=== PATIENT | male | born 1945 | race Caucasian/White ===

== ENCOUNTER 2016-08-11 19:03 | Inpatient (IN) ==
[2016-08-11] MEDS ORDERED: 0.9 % Sodium Chloride 1,000 ML IVC ONE (19:09)
--- NOTE | 2016-08-11 19:21 | Emergency Department Note ---
Disposition Clinical Impression: HCAP (healthcare-associated pneumonia) Altered mental status Qualifiers: Altered mental status type: coma Coma depth: Lety coma 9-12 Coma timing: at arrival to emergency department Qualified Code(s): R40.2422 - Abrams coma scale score 9-12, at arrival to emergency department Disposition: Admitted As Inpatient Condition: Serious Referrals: Tristan Stanton [Non-Partnered Physician] - Forms: ED Satisfaction Letter Time of Disposition: 21:06 Altered Mental Status HPI - General Chief Complaint: ED Altered Mental Status Stated Complaint: AMS/Unresponsive Source: EMS Mode of arrival: EMS Limitations: altered mental status Nursing Notes Reviewed: Yes Vital Signs Reviewed: Yes - History of Present Illness HPI Narrative: 71-year-old male arrives via EMS for evaluation of mental status. Details surrounding his presentation are unknown as patient is severely altered and is not responding to questioning. Per EMS patient was known to be well at approximately 12:00 today when he was seen by his home health nurse. Apparently at that time the patient was somewhat altered and combative and asked the nurse to leave. He was found later by EMS to be severely altered and poorly responsive in his bed at home. He was covered in urine and feces and was found to be satting 83% on room air. EMS noted the patient's sound like he was "gurgling". He did not respond to questioning in route and remains altered during my examination. Initial vital signs show moderate tachycardia 132 bpm and the patient was afebrile. Initial O2 saturation was 93% on room air. Patient did not open his eyes on command but will to painful stimuli. On examination of his pupils the right pupil is much larger than the left pupil and was responsive. Patient has some crusting secretions around the mouth and appears dehydrated. Lungs are diminished bilaterally. Heart is tachycardic and regular. His abdomen is soft and nontender. Extremities are nonedematous, warm with pulses intact distally. Labs, EKG, chest x-ray and CT head ordered. MD complaint: altered mental status Onset (ago): unknown - Related Data Home Medications Medication Instructions Recorded Confirmed Cholecalciferol (D-3) [Vitamin D] 1,000 unit PO DAILY #0 05/13/15 08/11/16 Omeprazole [PriLOSEC] 40 mg PO BID 05/13/15 08/11/16 TraMADol [Ultram] 100 mg PO QID 10/05/15 01/03/17 Divalproex (12 HR) [Depakote (12 500 mg PO BID 08/11/16 08/11/16 HR)] Metoprolol [Lopressor] 50 mg PO BID 08/11/16 08/11/16 Simvastatin [Zocor] 40 mg PO HS 08/11/16 08/11/16 Previous Rx's Medication Instructions Recorded Allopurinol [Zyloprim] 100 mg PO DAILY tablet 05/23/15 Allergies Allergy/AdvReac Type Severity Reaction Status Date / Time Penicillins Allergy Mild Hives Verified 03/09/15 09:43 moxifloxacin Allergy Hives Verified 03/09/15 09:43 etodolac AdvReac Nausea Verified 03/09/15 09:43 Limitations: ROS unobtainable due to patients medical condition (Altered mentation) Past Medical History - Past Medical History Medical history: Reports: diabetes, GERD, hyperlipidemia, hypertension, renal disease, other Surgical history: Reports: knee replacement Psychiatric history: Reports: bipolar - Social History Smoking Status: Never smoker Smokeless Tobacco Status: No Alcohol use: Reports: none Drug use: Reports: none Physical Exam - General Limitations: no limitations General appearance: lethargic, obtunded - Head Head exam: atraumatic, normocephalic, normal inspection - Eye Eye exam: Present: other (Unequal pupils. The right pupil appears dilated as the left pupil is myotic) - ENT ENT exam: mucous membranes dry - Chest Chest inspection: Present: normal inspection, symmetric chest wall rise - Respiratory Respiratory exam: Present: normal lung sounds bilaterally - Cardiovascular Cardiovascular exam: Present: normal rhythm, tachycardia, normal heart sounds - Abdominal Exam Abdominal exam: Present: soft, Non-Tender. Absent: tenderness, distention, guarding, rebound, rigidity - Extremities Exam Extremities exam: Absent: pedal edema - Neurological Exam Neurological exam: Present: other (Disoriented and poorly responsive) - Skin Skin exam: Present: warm, dry, intact, normal color Course - Reevaluation(s) Reevaluation #1: Patient does not meet SIRS criteria. The left lower lobe atelectasis was read on chest x-ray does not appear to be clinical source of the patient's altered mentation. CT of the chest abdomen and pelvis ordered. We are unable to obtain adequate peripheral IV access so a central venous catheter will be placed once the patient returns from CT. Time: 21:04 Reevaluation #2: Discussed case with hospitalist. Based on CT results he does want to treat the patient as healthcare associated pneumonia. Cultures obtained. Antibiotics ordered. Patient will be accepted for further evaluation. Time: 22:39 Vital Signs Temperature 98.6 F 08/11/16 19:05 Pulse Rate 130 08/11/16 19:05 Respiratory Rate 20 08/11/16 19:05 Blood Pressure 118/64 08/11/16 19:05 O2 Sat by Pulse Oximetry 93 L 08/11/16 19:05 Temperature 98.6 F 08/11/16 19:05 Pulse Rate 130 08/11/16 19:05 Respiratory Rate 20 08/11/16 19:05 Blood Pressure 118/64 08/11/16 19:05 O2 Sat by Pulse Oximetry 93 L 08/11/16 19:05 Oxygen Delivery Oxygen Delivery Room Air Procedures - Central Line Placement Right Femoral Central Line Inserted*: Yes Central Line Insertion: emergent Procedural Pause: verify patient name and date of , jordy and assess the site, assemble equipment and verify supplies, perform hand hygiene Patient Placed on Monitor/Pulse Ox: Yes During the Procedure: clinician is wearing sterile gloves, cap, mask,& gown during insertion, sterile field and sterile technique are maintained, everyone in room is wearing a mask Central Line Prep: Chlorhexidine scrub Prep the Procedure Site: apply chloraprep to the skin using a back and forth scrubbing motion, apply chloraprep for 30 seconds (upper body), 1-2 min ( femoral sites), allow prep to dry, drape the patient with a full body drape Local Anesthetic: lidocaine 1% Ultrasound Used for Placement: Yes Central Line Lumen Inserted: triple Post Procedure: sutured in place, good blood return, all ports aspirated, flushed, capped, sterile dressing applied, guide wire removed and visualized Patient Tolerated Procedure: well, no complications Complications: none Altered Mental Status - Medical Records Medical records reviewed: Yes I reviewed the patient's medical records. - Lab Data Lab results reviewed: Yes I reviewed the patient's lab results. Result diagrams: 08/11/16 19:53 08/11/16 19:53 Lab Results 08/11/16 08/11/16 08/11/16 Range/Units 19:28 19:53 19:53 WBC 8.1 (4.3-11.1) K/mcL RBC 4.24 (4.19-5.50) M/mcL Hgb 12.5 L (12.9-16.9) g/dL Hct 38.4 (37.5-50.1) % MCV 90.6 (83.0-100.0) fL MCH 29.5 (28.0-33.3) pg MCHC 32.6 (31.6-35.5) g/dL RDW 13.8 (11.5-14.5) % Plt Count 192 (140-400) K/mcL MPV 9.3 L (9.4-12.4) fL Immature Gran % 0.4 (0-4) % Seg Neutrophils % 80.2 % Lymphocytes % 9.9 % Monocytes % 9.1 % Eosinophils % 0.2 % Basophils % 0.2 % Neutrophils # 6.5 (1.6-8.9) K/mcL Lymphocytes # 0.8 (0.6-4.6) K/mcL Monocytes # 0.7 (0.0-1.3) K/mcL Eosinophils # 0.0 (0.0-0.6) K/mcL Basophils # 0.0 (0.0-0.2) K/mcL ABG pH 7.46 H (7.32-7.45) pH Units ABG pCO2 40 (35-45) mmHg ABG pO2 65 L (85-104) mmHg ABG HCO3 28.4 H (21-27) mEQ/L ABG Total CO2 29.6 H (20-26) mEq/L ABG O2 Saturation 94 L (95-98) % ABG Base Excess 4.2 H (-2.0 to 3.0) mEq/L Liter Flow 3 L/MIN Blood Gas Modality NC Inspired O2 32 % Sodium 136 (136-145) mEq/L Potassium 4.2 (3.5-4.5) mEq/L Chloride 103 (98-109) mEq/L Carbon Dioxide 22 (19-29) mEq/L BUN 20 (8-26) mg/dL Creatinine 1.17 (0.72-1.25) mg/dL Est GFR ( Amer) > 60 (> 60) Est GFR (Non-Af Amer) > 60 (> 60) BUN/Creatinine Ratio 17 (6-26) Glucose 166 H (70-99) mg/dL Calculated Osmolality 288 (280-300) Lactic Acid (0.5-2.2) mmol/L Calcium 9.1 (8.6-10.8) mg/dL Total Bilirubin 0.4 (0.2-1.2) mg/dL Direct Bilirubin 0.2 (0.0-0.5) mg/dL Indirect Bilirubin 0.2 (0.0-1.2) mg/dL AST 13 (5-34) Units/L ALT 9 (0-55) Units/L Alkaline Phosphatase 66 (38-126) Units/L Ammonia (18-72) mcmol/L Troponin I (0-0.03) ng/mL Serum Total Protein 8.2 (6.0-8.3) g/dL Albumin 2.9 L (3.5-5.0) g/dL Globulin 5.3 H (2.4-3.5) g/dL Albumin/Globulin Ratio 0.5 L (1.1-2.2) Urine Color (Yellow) Urine Clarity (Clear) Urine pH (5.0-8.0) pH Units Ur Specific [place] (1.010-1.025) Urine Protein (Neg-Trace) mg/dL Urine Glucose (UA) (Normal) mg/dL Urine Ketones (Negative) mg/dL Urine Blood (Negative) Urine Nitrite (Negative) Urine Bilirubin (Negative) Urine Urobilinogen (Normal) mg/dL Ur Leukocyte Esterase (Negative) Urine Microscopic WBC Urine Bacteria (None-Few) per hpf Urine Mucus (Few) Ur Culture Indicated? (NO) Urine Opiates Screen (Glscda=795) ng/mL Ur Barbiturates Screen (Zzqjud=710) ng/mL Ur Phencyclidine Scrn (Cutoff=25) ng/mL Ur Amphetamines Screen (Iviilu=3728) ng/mL U Benzodiazepines Scrn (Idhksr=042) ng/mL Urine Cocaine Screen (Cutoff= 300) ng/mL U Marijuana (THC) Screen (Cutoff = 50) ng/mL Ethyl Alcohol (0-10) mg/dL 08/11/16 08/11/16 08/11/16 Range/Units 19:53 19:53 19:53 WBC (4.3-11.1) K/mcL RBC (4.19-5.50) M/mcL Hgb (12.9-16.9) g/dL Hct (37.5-50.1) % MCV (83.0-100.0) fL MCH (28.0-33.3) pg MCHC (31.6-35.5) g/dL RDW (11.5-14.5) % Plt Count (140-400) K/mcL MPV (9.4-12.4) fL Immature Gran % (0-4) % Seg Neutrophils % % Lymphocytes % % Monocytes % % Eosinophils % % Basophils % % Neutrophils # (1.6-8.9) K/mcL Lymphocytes # (0.6-4.6) K/mcL Monocytes # (0.0-1.3) K/mcL Eosinophils # (0.0-0.6) K/mcL Basophils # (0.0-0.2) K/mcL ABG pH (7.32-7.45) pH Units ABG pCO2 (35-45) mmHg ABG pO2 (85-104) mmHg ABG HCO3 (21-27) mEQ/L ABG Total CO2 (20-26) mEq/L ABG O2 Saturation (95-98) % ABG Base Excess (-2.0 to 3.0) mEq/L Liter Flow L/MIN Blood Gas Modality Inspired O2 % Sodium (136-145) mEq/L Potassium (3.5-4.5) mEq/L Chloride (98-109) mEq/L Carbon Dioxide (19-29) mEq/L BUN (8-26) mg/dL Creatinine (0.72-1.25) mg/dL Est GFR ( Amer) (> 60) Est GFR (Non-Af Amer) (> 60) BUN/Creatinine Ratio (6-26) Glucose (70-99) mg/dL Calculated Osmolality (280-300) Lactic Acid 3.2 H (0.5-2.2) mmol/L Calcium (8.6-10.8) mg/dL Total Bilirubin (0.2-1.2) mg/dL Direct Bilirubin (0.0-0.5) mg/dL Indirect Bilirubin (0.0-1.2) mg/dL AST (5-34) Units/L ALT (0-55) Units/L Alkaline Phosphatase (38-126) Units/L Ammonia 18 (18-72) mcmol/L Troponin I 0.04 H* (0-0.03) ng/mL Serum Total Protein (6.0-8.3) g/dL Albumin (3.5-5.0) g/dL Globulin (2.4-3.5) g/dL Albumin/Globulin Ratio (1.1-2.2) Urine Color (Yellow) Urine Clarity (Clear) Urine pH (5.0-8.0) pH Units Ur Specific [place] (1.010-1.025) Urine Protein (Neg-Trace) mg/dL Urine Glucose (UA) (Normal) mg/dL Urine Ketones (Negative) mg/dL Urine Blood (Negative) Urine Nitrite (Negative) Urine Bilirubin (Negative) Urine Urobilinogen (Normal) mg/dL Ur Leukocyte Esterase (Negative) Urine Microscopic WBC Urine Bacteria (None-Few) per hpf Urine Mucus (Few) Ur Culture Indicated? (NO) Urine Opiates Screen (Kiiynf=129) ng/mL Ur Barbiturates Screen (Qztokd=566) ng/mL Ur Phencyclidine Scrn (Cutoff=25) ng/mL Ur Amphetamines Screen (Hqbqyj=7903) ng/mL U Benzodiazepines Scrn (Vcjpqp=838) ng/mL Urine Cocaine Screen (Cutoff= 300) ng/mL U Marijuana (THC) Screen (Cutoff = 50) ng/mL Ethyl Alcohol (0-10) mg/dL 08/11/16 08/11/16 08/11/16 Range/Units 19:53 20:24 20:24 WBC (4.3-11.1) K/mcL RBC (4.19-5.50) M/mcL Hgb (12.9-16.9) g/dL Hct (37.5-50.1) % MCV (83.0-100.0) fL MCH (28.0-33.3) pg MCHC (31.6-35.5) g/dL RDW (11.5-14.5) % Plt Count (140-400) K/mcL MPV (9.4-12.4) fL Immature Gran % (0-4) % Seg Neutrophils % % Lymphocytes % % Monocytes % % Eosinophils % % Basophils % % Neutrophils # (1.6-8.9) K/mcL Lymphocytes # (0.6-4.6) K/mcL Monocytes # (0.0-1.3) K/mcL Eosinophils # (0.0-0.6) K/mcL Basophils # (0.0-0.2) K/mcL ABG pH (7.32-7.45) pH Units ABG pCO2 (35-45) mmHg ABG pO2 (85-104) mmHg ABG HCO3 (21-27) mEQ/L ABG Total CO2 (20-26) mEq/L ABG O2 Saturation (95-98) % ABG Base Excess (-2.0 to 3.0) mEq/L Liter Flow L/MIN Blood Gas Modality Inspired O2 % Sodium (136-145) mEq/L Potassium (3.5-4.5) mEq/L Chloride (98-109) mEq/L Carbon Dioxide (19-29) mEq/L BUN (8-26) mg/dL Creatinine (0.72-1.25) mg/dL Est GFR ( Amer) (> 60) Est GFR (Non-Af Amer) (> 60) BUN/Creatinine Ratio (6-26) Glucose (70-99) mg/dL Calculated Osmolality (280-300) Lactic Acid (0.5-2.2) mmol/L Calcium (8.6-10.8) mg/dL Total Bilirubin (0.2-1.2) mg/dL Direct Bilirubin (0.0-0.5) mg/dL Indirect Bilirubin (0.0-1.2) mg/dL AST (5-34) Units/L ALT (0-55) Units/L Alkaline Phosphatase (38-126) Units/L Ammonia (18-72) mcmol/L Troponin I (0-0.03) ng/mL Serum Total Protein (6.0-8.3) g/dL Albumin (3.5-5.0) g/dL Globulin (2.4-3.5) g/dL Albumin/Globulin Ratio (1.1-2.2) Urine Color Dark Yellow (Yellow) Urine Clarity Clear (Clear) Urine pH 6.0 (5.0-8.0) pH Units Ur Specific [place] 1.019 (1.010-1.025) Urine Protein Negative (Neg-Trace) mg/dL Urine Glucose (UA) Normal (Normal) mg/dL Urine Ketones Negative (Negative) mg/dL Urine Blood Small H (Negative) Urine Nitrite Negative (Negative) Urine Bilirubin Small H (Negative) Urine Urobilinogen Normal (Normal) mg/dL Ur Leukocyte Esterase Negative (Negative) Urine Microscopic WBC Test Not Performed Urine Bacteria Moderate H (None-Few) per hpf Urine Mucus Few (Few) Ur Culture Indicated? NO (NO) Urine Opiates Screen Negative (Ajwijg=894) ng/mL Ur Barbiturates Screen Negative (Sxzmsc=465) ng/mL Ur Phencyclidine Scrn Negative (Cutoff=25) ng/mL Ur Amphetamines Screen Negative (Lkzxvf=2228) ng/mL U Benzodiazepines Scrn Negative (Ossmcu=663) ng/mL Urine Cocaine Screen Negative (Cutoff= 300) ng/mL U Marijuana (THC) Screen Negative (Cutoff = 50) ng/mL Ethyl Alcohol < 10 (0-10) mg/dL - Radiology Data Radiology results reviewed: Yes I reviewed the patient's radiology results. - EKG Data EKG attestation: Yes I reviewed and interpreted this EKG. EKG shows normal: sinus rhythm Rate: tachycardia Rhythm: NSR Interpretation: no acute changes Critical Care Time Critical Care Time: Yes Total Critical Care Time: 40 Attestation: Critical care performed: Time is exclusive of separately billable procedures. Time includes: direct patient care, patient reassessment, coordination of patient care, interpretation of data (laboratory data, radiology data, and respiratory data), review of patient's medical records, medical consultation and documentation of patient care. Procedures included in critical care time: Procedures excluded from critical care time: right femoral central venous access placement Attestation Statement - Attestation Attestation: I, Wali Dominguez MD, personally performed a history and physical exam of the patient and discussed their management with the resident. I reviewed the resident's note and agree with the documented findings, medical decision making , and plan of care. 71-year-old male presents to the emergency department by EMS for evaluation about mental status. He has a history of similar episodes in the past and has been admitted several times for similar symptoms. Reportedly his home health checked on him about noon today and he was combative and ran them off. Someone found him this evening at home unresponsive. Patient is unresponsive and unable to provide any History or review of systems. On examination patient is a well-developed well-nourished elderly male who is unresponsive. Ears no cyanosis or diaphoresis. Breath sounds are equal bilaterally. Heart regular and tachycardic. Abdomen is soft with normal bowel sounds. Patient does moan and appear to have some discomfort with palpation of the abdomen. Labs reviewed and unremarkable. CT of the head, chest, and abdomen and pelvis shows no acute abnormality. The hospitalist,Dr. Peralta, was consulted and accepted admission of the patient.
[2016-08-11 19:37] LABS: ABG Base Excess 4.2 mEq/L (-2.0 to 3.0); ABG HCO3 28.4 mEQ/L (21-27); ABG Oxygen Saturation 94 % (95-98); ABG PCO2 40 mmHg (35-45); ABG PH 7.46 pH Units (7.32-7.45); ABG PO2 65 mmHg (85-104); ABG TCO2 29.6 mEq/L (20-26); Blood Gas FiO2 32 %; Blood Gas Liter Flow 3 L/MIN
[2016-08-11 20:04] LABS: Basophils % 0.2 %; Eosinophils % 0.2 %; Hematocrit 38.4 % (37.5-50.1); Hemoglobin 12.5 g/dL (12.9-16.9); Immature Granulocytes % 0.4 % (0-4); Lymphocytes # 0.8 K/mcL (0.6-4.6); Lymphocytes % 9.9 %; Mean Corpuscular HGB Conc 32.6 g/dL (31.6-35.5); Mean Corpuscular Hemoglobin 29.5 pg (28.0-33.3); Mean Corpuscular Volume 90.6 fL (83.0-100.0); Mean Platelet Volume 9.3 fL (9.4-12.4); Monocytes # 0.7 K/mcL (0.0-1.3); Monocytes % 9.1 %; Neutrophils # 6.5 K/mcL (1.6-8.9); Platelet Count 192 K/mcL (140-400); Red Blood Count 4.24 M/mcL (4.19-5.50); Red Cell Distribution Width 13.8 % (11.5-14.5); Segmented Neutrophils % 80.2 %
[2016-08-11 20:19] LABS: Alanine Aminotransferase 9 Units/L (0-55); Albumin 2.9 g/dL (3.5-5.0); Albumin/Globulin Ratio 0.5 (1.1-2.2); Alkaline Phosphatase 66 Units/L (38-126); Aspartate Amino Transferase 13 Units/L (5-34); BUN/Creatinine Ratio 17 (6-26); Bilirubin,Direct 0.2 mg/dL (0.0-0.5); Bilirubin,Indirect 0.2 mg/dL (0.0-1.2); Bilirubin,Total 0.4 mg/dL (0.2-1.2); Blood Urea Nitrogen 20 mg/dL (8-26); Calcium 9.1 mg/dL (8.6-10.8); Carbon Dioxide 22 mEq/L (19-29); Chloride 103 mEq/L (98-109); Globulin 5.3 g/dL (2.4-3.5); Glucose 166 mg/dL (70-99); Osmolality,Calculated 288 (280-300); Potassium 4.2 mEq/L (3.5-4.5); Sodium 136 mEq/L (136-145); Total Protein 8.2 g/dL (6.0-8.3); eGFR For African Americans > 60 (> 60); eGFR For Non-African Americans > 60 (> 60)
[2016-08-11 20:47] LABS: Bilirubin,Urine Small (Negative); Clarity,Urine Clear (Clear); Color,Urine Dark Yellow (Yellow); Glucose,Urine (UA) Normal (Normal); Ketones,Urine Negative (Negative); Leukocyte Esterase,Urine Negative (Negative); Nitrite,Urine Negative (Negative); Protein,Urine Negative (Neg-Trace); Specific Gravity,Urine 1.019 (1.010-1.025); Urobilinogen,Urine Normal (Normal)
[2016-08-11 20:51] LABS: Amphetamine Screen,Urine Negative ng/mL (Cutoff=1000); Barbiturate Screen,Urine Negative ng/mL (Cutoff=200); Benzodiazepines Screen,Urine Negative ng/mL (Cutoff=200); Cannabinoid Screen,Urine Negative ng/mL (Cutoff = 50); Cocaine Screen,Urine Negative ng/mL (Cutoff= 300); Opiate Screen,Urine Negative ng/mL (Cutoff=300); Phencyclidine Screen,Urine Negative ng/mL (Cutoff=25)
[2016-08-11 20:55] LABS: Blood,Urine Small (Negative)
[2016-08-11 21:08] LABS: Bacteria,Urine Moderate per hpf (None-Few); Mucus,Urine Few (Few)
[2016-08-11] MEDS ORDERED: Levofloxacin 750 MG/150 ML 750 MG/150 ML BAG IVPB ONE (22:31)
[2016-08-11] MEDS ORDERED: Vancomycin 1,500 MG in D5% in Water 250 ML IVPB ONE (22:33)
[2016-08-11] MEDS ORDERED: 0.9 % Sodium Chloride 1,000 ML IV ONE (22:35)
[2016-08-11] MEDS ORDERED: Acetaminophen 650 MG RECTAL SUPP RC PRN (22:47)
[2016-08-11] MEDS ORDERED: Albuterol 2.5 MG/3 ML NEBULIZER IH PRN (22:47)
[2016-08-11] MEDS ORDERED: Dextrose Gel 15 GM PO PRN ×2 (22:47)
[2016-08-11] MEDS ORDERED: *HR* LORazepam 2 MG/ML VIAL IVP PRN (22:47)
[2016-08-11] MEDS ORDERED: *HR* Morphine 2 MG/ML SYRINGE IVP PRN (22:47)
[2016-08-11] MEDS ORDERED: *HR* Enoxaparin 40 MG/0.4 ML SYRINGE SQ STA (22:47)
[2016-08-11] MEDS ORDERED: Acetaminophen 325 MG TABLET PO PRN (22:47)
[2016-08-11] MEDS ORDERED: *HR* Dextrose 50 % in Water (Syg) 50 ML SYRINGE IVP PRN (22:47)
[2016-08-11] MEDS ORDERED: *HR* Promethazine 25 MG/ML VIAL IVP PRN (22:47)
[2016-08-11] MEDS ORDERED: Naloxone 0.4 MG/ML INJ IVP PRN ×2 (22:47)
[2016-08-11] MEDS ORDERED: D5% in Water 1,000 ML IV PRN (22:47)
[2016-08-11] MEDS ORDERED: 0.9 % Sodium Chloride 1,000 ML IVC SCH (23:00)
[2016-08-11] MEDS ORDERED: Cefepime HCl 2,000 MG in D5% in Water (Mini-Bag+) 100 ML IVPB ONE (23:00)
--- NOTE | 2016-08-11 23:10 | Internal Med History&Physical ---
Date of Encounter: 08/11/16 Time of Encounter: 22:00 Assessment and Plan (1) Toxic metabolic encephalopathy Current visit: Yes Status: Acute . (2) Delirium due to conditions classified elsewhere Current visit: Yes Status: Acute . (3) Acute pansinusitis, unspecified Current visit: Yes Status: Acute . Qualifiers: Recurrence: not specified as recurrent Qualified Code(s): J01.40 - Acute pansinusitis, unspecified (4) Altered mental status Current visit: Yes Status: Acute . Qualifiers: Altered mental status type: coma Coma depth: [place] coma 9-12 Coma timing: at arrival to emergency department Qualified Code(s): R40.2422 - [place] coma scale score 9-12, at arrival to emergency department (5) HCAP (healthcare-associated pneumonia) Current visit: Yes Status: Acute . (6) Bipolar disorder Current visit: Yes Status: Chronic . Qualifiers: Active/Remission status: currently active Current bipolar episode type: depressed Current episode severity: unspecified Qualified Code(s): F31.30 - Bipolar disorder, current episode depressed, mild or moderate severity, unspecified (7) Hyperlipidemia Current visit: Yes Status: Chronic . Qualifiers: Hyperlipidemia type: mixed hyperlipidemia Qualified Code(s): E78.2 - Mixed hyperlipidemia (8) Hypertension Current visit: Yes Status: Chronic . Qualifiers: Hypertension type: essential hypertension Qualified Code(s): I10 - Essential (primary) hypertension (9) Physical deconditioning Current visit: Yes Status: Chronic . (10) Severe protein-calorie malnutrition Current visit: Yes Status: Chronic . (11) Diabetes Current visit: Yes Status: Chronic . 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 (13) Lactic acidemia Current visit: Yes Status: Acute . (14) Elevated troponin I measurement Current visit: Yes Status: Acute . (15) Ischemia due to increased oxygen demand Current visit: Yes Status: Acute . (16) Debility, unspecified Current visit: Yes Status: Chronic . (17) Obesity (BMI 30-39.9) Current visit: Yes Status: Chronic . (18) NMS (neuroleptic malignant syndrome) Current visit: Yes Status: Acute . (19) Serotonin syndrome Current visit: Yes Status: Acute . (20) At risk for adverse drug event Current visit: Yes Status: Chronic . (21) Systemic inflammatory response syndrome (SIRS) Current visit: Yes Status: Acute . (22) Sepsis Current visit: Yes Status: Acute . Qualifiers: Sepsis type: sepsis due to unspecified organism Qualified Code(s): A41.9 - Sepsis, unspecified organism Internal Medicine - H&P: HPI Chief complaint: Unresponsiveness Admitted From: Emergency Dept Plans for Post Hospital Care: Home History of present illness: Mr. Walker is a 71 year old male [facility] patient with history significant for bipolar disorder, depression and anxiety, hypertension, dyslipidemia, GERD, osteoarthritis, osteopenia, reactive airway disease/COPD, gout, obesity, nonsmoker. The patient was visited and interviewed and examined. Patient is grossly encephalopathic. Speech is garbled and indistinguishable. Currently alert but predominantly somnolent and responsive only to noxious stimuli. Grossly observed course fasciculations of tongue, twitching and hyperreflexia of extremities observed. The patient is admitted to [facility] via the emergency department when he presents by EMS services from a long term living arrangement with reports of altered mental status. Patient had similar episodes in the past and had been admitted several times for similar symptoms. On arrival to the emergency department the patient was found to be severely altered and nonverbal. Patient was reported to had been at his baseline status up until noon the day of presentation. He had seen his home health nurse in consultation. During that appointment he was found to be somewhat altered, hyperirritable and combative. Home health nurse left the facility after which the patient became more severely altered and none responsive. The scene as reported by EMS found the patient to be covered in urine and feces. Oxygen saturation was 83% on room air. His upper airway was patent but I do not really sound was heard with his respirations. Did not respond to any direct questioning and is unable to follow commands. Initial vital signs showed moderate tachycardia of 132 bpm. Patient was initially reported as afebrile. On oxygen supplementation saturations increased to 93%. Patient responded only to painful stimuli. Examination again revealed right much larger than the left with appropriate response consistent with patient's known anisocoria. Findings in the ED: Signs noted temperature 98.6 pulse 130 respirations 20 BP 118/64 O2 saturation 93% on room air. WBC 8.1 hemoglobin 4.5 platelets 192,000. Differential normal. MPV 9.3. Arterial blood gas pH 7.46 PCO2 40 PO2 65 bicarbonate 28.4. O2 saturation 94% on 2 L per nasal cannula. Metabolic panel normal except glucose 166 with osmolality 288. Albumin 2.9 with total of 8.2. Globulin 5.3. BUN 20 creatinine 1.17. Hepatic function normal. Ammonia 18. Lactic acid 2.2. Troponin 0.04. Urine drug screen negative. Alcohol negative. Urinalysis found small blood and small bilirubin moderate bacteria. Chest x-ray demonstrated mild right basilar atelectasis versus pneumonia. Left lung clear. No pneumothorax or pleural effusion identified. Atherosclerotic heart medications of aortic arch. Cardiac and mediastinal contours without acute process. No acute osseous abnormality. CT of head without contrast demonstrated no acute intracranial abnormality. Severe pansinusitis noted. No evidence of hemorrhage mass effect or midline shift or fluid collection. No evidence of acute infarct. No evidence of hydrocephalus. Complete opacification of all paranasal sinuses with relative sparing the frontal sinus noted. Mastoid air cells clear. No abnormal visualized skull or soft tissue abnormalities. CT of chest without contrast demonstrated patchy nodularity at the left lung base likely due to post inflammatory versus infectious change. Focal nodular opacity seen in the left lung base 1.1 cm with surrounding tree-in-bud nodularity. Nodular appearance recommends however follow-up noncontrast study. Tiny hypodense nodules seen in the thyroid doubtful significance. Small calcified and Calcified mediastinal nodes. Coronary artery calcification. CT of abdomen and pelvis demonstrated small amount of gas seen within the bladder likely due to Pike catheter. No other acute intra-abdominal abnormalities identified. Spleen mildly enlarged. Gallbladder absent. No garret-hepatic fluid seen. The infiltration of liver noted. Adrenal glands are normal in appearance. No evidence of hydronephrosis. No pancreatic calcification or peripancreatic fluid. No evidence of bowel obstruction. Colonic diverticula seen. No pelvic adenopathy. Atherosclerotic change in the aorta without aneurysm seen. No retroperitoneal adenopathy. Spurring seen in the spine incidentally. Preliminary impression suggests acute toxic metabolic encephalopathy with delirium. She has history of significant polypharmacy puts him at risk for NMS and serotonin syndrome. The latter is favored here. Systemic inflammatory response syndrome criteria are present. Radiographically the patient does disclose pansinusitis as well as right basilar atelectasis versus pneumonia. Sepsis criteria and thus is considered present at admission. The upper respiratory gurgling chest congestion and x-ray findings may suggest aspiration as a prelude to patient's acute hypoxic respiratory failure. Mild troponin elevation suggests demand ischemia likely due to hypoperfusion and diminished oxygenation. Overall the patient presents at high risk for further acute clinical decline and morbidity in this setting given his presenting chief complaint, clinical findings, past history and significant comorbidities. Workup and treatments will proceed comprehensively. Cumulative laboratory and radiographic data base was reviewed, considered and discussed. Pertinent ancillary medical records including ECW and PCI documentation, when available, was reviewed and considered. Given the patient's presenting concerns, past medical history, clinical findings and symptoms, he is admitted at this time will undergo further evaluation and disposition. Orders were written as per the computerized physician order make up clerk system.......................................................................... .................... Consultative opinion and will be sought as clinical circumstances justify. Pain management needs will be addressed. Laboratory and radiographic data base will be updated as appropriate. Studies include: Cultures of blood and urine and sputum, cardiac injury panel, BNP, CPK , myoglobin random urine, metabolic and hematologic panels, magnesium, phosphorus, ionized calcium, thyroid panel, lipid profile, HbgA1c, C-peptide, CRP, sed rate, resp infection panel, respiratory virus panel, coag panel, blood gas, lactic acid, serologies, etc. Precautions: Aspiration, fall, seizure, delirium protocol/surveillance initiated. Telemetry with continuous hemodynamic monitoring and pulse oximetry initiated. Empiric antibody coverage: Intravenous Vancomycin, Levaquin, Cefepime pending culture data. Special studies: CT chest, CT Head, CT abd/pelvis, chest x-ray, telemetry, EKG, MRI of brain. Pulmonary toilet: Incentive spirometry, aerosol bronchodilator, mucolytic, antitussive, supplemental oxygen. Corticosteroid therapy. CPAP/BiPAP supplemental oxygen delivery therapy. Aerosol Mucomyst therapy. Fluid and electrolyte repletion efforts will proceed. Careful attention to fluid balance and renal recovery will be emphasized. Avoidance of nephrotoxic exposure and adverse drug drug interaction in the setting of impaired renal function will be monitored closely. Acute coronary syndrome protocol/surveillance initiated. DVT and PUD prophylaxis initiated: PPI therapy, intermittent pneumatic cuffs. Subcutaneous heparin/lovenox. Early ambulation will be encouraged. Immunization updates recommended. Influenza and pneumococcal vaccinations as part of ongoing preventative healthcare recommendations strongly recommended. Smoking cessation counseling will be addressed when circumstances permit. Patient is a nonsmoker per medical record. Advanced care directive discussion will be addressed when circumstances permit. Patient's available records does not declare any healthcare restrictions at this time. Cardiovascular risk appraisal and cardiovascular risk reduction efforts will be emphasized. Physical and occupational therapy may be counseled to assess patient's functional capacity and progress mobility as circumstances permit. Sliding scale insulin coverage, ADA dietary restraint and schedule an as-needed basis fingerstick glucose assessments were initiated. Nutrition/diabetes education counseling may be considered as circumstances justify. Outpatient medication schedules will be reviewed confirmed and facilitated as appropriate. Reconciliation of home treatments including adjustments, substitutions and reintroduction into the treatment regimen will address necessary maintenance therapies for chronic pre-existing medical conditions. As the patient presents concern for adverse drug-drug interactions( Serotonin syndrome vs NMS) , his regimen will be studied carefully prior to final reconciliation. Plan of care has been reviewed and discussed in detail with the patient's attending staff. Questions addressed. Counselling of patient will await inprovement in mental status. Hospital course is dependent on clinical findings, treatment response and potential consultative interventions. Patient is at increased risk for further acute clinical decline and morbidity due to presenting chief complaints, clinical findings and comorbid conditions setting of evolving multiorgan derangements. Condition is serious. Prognosis is guarded. CODE STATUS is full. Past Med Surg Social Fam HX - Past Medical History Source: old records reviewed Medical history: COPD, diabetes, GERD, hyperlipidemia, hypertension, osteoporosis, renal disease, other Psychiatric history: anxiety, bipolar, depression, other - Past Surgical History Surgical History: knee replacement, other - Social History Smoking Status: Never smoker Smokeless Tobacco Status: No Alcohol use: none Drug use: none Occupational status: disabled Current living situation: Residential Activity Level: Mostly sedentary Recent Out of Country Travel Within the Last 8 Weeks: No Exposure or Possible Exposure to Illness During Travel: No Internal Medicine - H&P: Meds Cholecalciferol (D-3) [Vitamin D] 1,000 unit PO DAILY #0 05/13/15 [History] Omeprazole [PriLOSEC] 40 mg PO BID 05/13/15 [History] TraMADol [Ultram] 100 mg PO QID 05/13/15 [History] Allopurinol [Zyloprim] 100 mg PO DAILY tablet 05/23/15 [Rx] Albuterol Sulfate [Proair Hfa] 1 - 2 puff IH TID PRN 08/11/16 [History] Aspirin [Lo-Dose Aspirin EC] 81 mg PO DAILY 08/11/16 [History] Divalproex (12 HR) [Depakote (12 HR)] 500 mg PO BID 08/11/16 [History] Furosemide [Lasix] 20 mg PO BID 08/11/16 [History] Metoprolol [Lopressor] 50 mg PO BID 08/11/16 [History] Potassium Chloride [K-Tab ER] 20 meq PO BID 08/11/16 [History] RisperiDONE [RisperDAL] 0.25 mg PO HS 08/11/16 [History] Sennosides/Docusate Sodium [Senna-S Tablet] 1 tab PO BID PRN 08/11/16 [History] Simvastatin [Zocor] 40 mg PO HS 08/11/16 [History] Allergies Penicillins Allergy (Mild, Verified 03/09/15 09:43) Hives moxifloxacin Allergy (Verified 03/09/15 09:43) Hives etodolac Adverse Reaction (Verified 03/09/15 09:43) Nausea ROS unobtainable: due to mental status All Systems PM: A 10-system review of systems was performed and is negative for pertinent findings except as documented above in the HPI. Patient presents encephalopathic and is a non-historian of circumstances and events. Details are collected from EMS triage, collective medical records and staff elicited comments. - Constitutional Constitutional: as per HPI - EENT Eyes: as per HPI Ears: as per HPI Nose, mouth and throat: as per HPI - Cardiovascular Cardiovascular ROS IM: as per HPI - Respiratory Respiratory: as per HPI - Gastrointestinal Gastrointestinal: as per HPI - Genitourinary Genitourinary ROS male: as per HPI - Musculoskeletal Musculoskeletal ROS IM: as per HPI - Integumentary Integumentary IM: as per HPI - Neurological Neurological ROS: as per HPI - Psychiatric Psychiatric: as per HPI - Endocrine Endocrine IM: as per HPI - Hematologic/Lymphatic Hematologic/Lymphatic: as per HPI - Allergic/Immunologic Allergic/Immunologic: as per HPI - Constitutional Vitals: Temp Pulse Resp BP Pulse Ox 98.6 F 130 20 118/64 93 L 08/11/16 19:05 08/11/16 19:05 08/11/16 19:05 08/11/16 19:05 08/11/16 19:05 General appearance: Present: A&O X 1, mild distress, morbidly obese. Absent: cooperative, disheveled, answers questions appropriately - Head Head exam: Present: atraumatic, normocephalic - Eye Eye exam: Present: EOMI, PERRL, conjuntiva pink, sclera anicteric Pupils: Present: normal accommodation, PERRL, unequal (Anisocoria) - ENT ENT exam: Present: mucous membranes moist, normal external ear exam, normal oropharynx - Neck Neck exam general surgery: Present: supple, trachea midline. Absent: full ROM, lymphadenopathy, tenderness, nuchal rigidity - Respiratory Respiratory exam: Present: decreased breath sounds, CTAB. Absent: accessory muscle use, rales, rhonchi, wheezes - Cardiovascular Cardiovascular exam: Present: distant heart sounds, RRR, +S1, +S2, tachycardia. Absent: diastolic murmur, gallop, rubs, systolic murmur - GI/Abdominal GI/Abdominal exam: Present: normal bowel sounds, soft, no peritoneal signs. Absent: distended, tenderness - Extremities Exam Extremities exam: Present: full ROM, warm, radial pulses palpable and symetrical. Absent: calf tenderness, cyanotic, pedal edema - Neurological Exam Neurological exam: Present: altered, CN II-XII intact, no focal deficits. Absent: oriented X3, pronater drift, facial droop, speech deficit - Expanded Neurological Exam Neurological exam expanded: Present: ataxia, inattentive, protecting the airway , tremor. Absent: expressive aphasia, receptive aphasia Patient oriented to: Present: person Speech: Present: garbled Ataxia: Present: yes Coma Scale Eye Opening: To Pain Coma Scale Motor Response: Withdraws to Pain Coma Scale Verbal Response: Incomprehensible Coma Scale Total: 8 - Psychiatric Psychiatric exam: Present: agitated, flat affect - Skin Skin exam: Present: dry, intact, warm. Absent: petechiae, rash, urticaria, vesicles Internal Med - H&P Results - Labs CBC & Chem 7: 08/11/16 19:53 08/12/16 04:30 Labs: Short CBC 08/11/16 Range/Units 19:53 WBC 8.1 (4.3-11.1) K/mcL Hgb 12.5 L (12.9-16.9) g/dL Hct 38.4 (37.5-50.1) % Plt Count 192 (140-400) K/mcL Neutrophils # 6.5 (1.6-8.9) K/mcL BMP 08/11/16 19:53 Sodium 136 Potassium 4.2 Chloride 103 Carbon Dioxide 22 BUN 20 Creatinine 1.17 Glucose 166 H Calcium 9.1 Cardiac Enzymes 08/11/16 Range/Units 19:53 Troponin I 0.04 H* (0-0.03) ng/mL Liver Function 08/11/16 Range/Units 19:53 Total Bilirubin 0.4 (0.2-1.2) mg/dL Direct Bilirubin 0.2 (0.0-0.5) mg/dL AST 13 (5-34) Units/L ALT 9 (0-55) Units/L Alkaline Phosphatase 66 (38-126) Units/L Albumin 2.9 L (3.5-5.0) g/dL Urine 08/11/16 Range/Units 20:24 Urine Color Dark Yellow (Yellow) Urine Clarity Clear (Clear) Urine pH 6.0 (5.0-8.0) pH Units Ur Specific [place] 1.019 (1.010-1.025) Urine Protein Negative (Neg-Trace) mg/dL Urine Glucose (UA) Normal (Normal) mg/dL - ABG Interpretation ABG results: 08/11/16 19:28 ABG pH 7.46 H ABG pCO2 40 ABG pO2 65 L ABG HCO3 28.4 H ABG Total CO2 29.6 H ABG O2 Saturation 94 L ABG Base Excess 4.2 H - Impressions ITS Impressions Chest X-Ray 08/11/16 19:09 IMPRESSION: Mild right basilar atelectasis versus pneumonia. D/ / Chanell Sims MD / Chanell Sims MD Interpreting Provider: Chanell Sims MD Head CT 08/11/16 19:09 IMPRESSION: No acute intracranial abnormality. Severe blackburn sinusitis. D/ / Elvin Palacios MD / Elvin Palacios MD Interpreting Provider: Elvin Palacios MD Abdomen/Pelvis CT 08/11/16 20:45 IMPRESSION: Patchy nodularity at the left lung base, likely due to postinflammatory -infectious change. However, given the nodular appearance, recommend follow-up noncontrast chest CT in 3 months time to document resolution Small amount a gas is seen within the bladder, likely due to Pike catheter insertion. Correlate with urinalysis to exclude cystitis. Otherwise no acute intra-abdominal abnormality D/ / Tal Pollock MD / Tal Pollock MD Interpreting Provider: Tal Pollock MD Chest CT 08/11/16 20:46 IMPRESSION: Patchy nodularity at the left lung base, likely due to postinflammatory -infectious change. However, given the nodular appearance, recommend follow-up noncontrast chest CT in 3 months time to document resolution Small amount a gas is seen within the bladder, likely due to Pike catheter insertion. Correlate with urinalysis to exclude cystitis. Otherwise no acute intra-abdominal abnormality D/ / Tal Pollock MD / Tal Pollock MD Interpreting Provider: Tal Pollock MD Vital Signs Temp Pulse Resp BP Pulse Ox 08/11/16 19:05 98.6 F 130 20 118/64 93 L Intake and Output 08/11/16 08/11/16 08/11/16 07:59 15:59 23:59 Intake Total 1000 / 1000 Balance 1000 / 1000 Intake: IV Fluids 1000 / 1000 0.9 % Sodium Chloride 1, 1000 / 1000 000 ML @ 3750 mls/hr IVC .Q16M ONE Rx#:[id number] Other: Weight 104.326 kg Patient Weight 08/11/16 23:59 Weight 104.326 kg Short CBC 08/11/16 Range/Units 19:53 WBC 8.1 (4.3-11.1) K/mcL Hgb 12.5 L (12.9-16.9) g/dL Hct 38.4 (37.5-50.1) % Plt Count 192 (140-400) K/mcL Neutrophils # 6.5 (1.6-8.9) K/mcL BMP 08/11/16 Range/Units 19:53 Sodium 136 (136-145) mEq/L Potassium 4.2 (3.5-4.5) mEq/L Chloride 103 (98-109) mEq/L Carbon Dioxide 22 (19-29) mEq/L BUN 20 (8-26) mg/dL Creatinine 1.17 (0.72-1.25) mg/dL Glucose 166 H (70-99) mg/dL Calcium 9.1 (8.6-10.8) mg/dL Cardiac Enzymes 08/11/16 Range/Units 19:53 Troponin I 0.04 H* (0-0.03) ng/mL Liver Function 08/11/16 Range/Units 19:53 Total Bilirubin 0.4 (0.2-1.2) mg/dL Direct Bilirubin 0.2 (0.0-0.5) mg/dL AST 13 (5-34) Units/L ALT 9 (0-55) Units/L Alkaline Phosphatase 66 (38-126) Units/L Albumin 2.9 L (3.5-5.0) g/dL Urine 08/11/16 Range/Units 20:24 Urine Color Dark Yellow (Yellow) Urine Clarity Clear (Clear) Urine pH 6.0 (5.0-8.0) pH Units Ur Specific [place] 1.019 (1.010-1.025) Urine Protein Negative (Neg-Trace) mg/dL Urine Glucose (UA) Normal (Normal) mg/dL 08/11/16 19:28 ABG pH 7.46 H ABG pCO2 40 ABG pO2 65 L ABG HCO3 28.4 H ABG Total CO2 29.6 H ABG O2 Saturation 94 L ABG Base Excess 4.2 H Abnormal lab results Hgb 12.5 g/dL (12.9-16.9) L 08/11/16 19:53 MPV 9.3 fL (9.4-12.4) L 08/11/16 19:53 ABG pH 7.46 pH Units (7.32-7.45) H 08/11/16 19:28 ABG pO2 65 mmHg (85-104) L 08/11/16 19:28 ABG HCO3 28.4 mEQ/L (21-27) H 08/11/16 19:28 ABG Total CO2 29.6 mEq/L (20-26) H 08/11/16 19:28 ABG O2 Saturation 94 % (95-98) L 08/11/16 19:28 ABG Base Excess 4.2 mEq/L (-2.0 to 3.0) H 08/11/16 19:28 Glucose 166 mg/dL (70-99) H 08/11/16 19:53 Lactic Acid 3.2 mmol/L (0.5-2.2) H 08/11/16 19:53 Troponin I 0.04 ng/mL (0-0.03) H* 08/11/16 19:53 Albumin 2.9 g/dL (3.5-5.0) L 08/11/16 19:53 Globulin 5.3 g/dL (2.4-3.5) H 08/11/16 19:53 Albumin/Globulin Ratio 0.5 (1.1-2.2) L 08/11/16 19:53 Urine Blood Small (Negative) H 08/11/16 20:24 Urine Bilirubin Small (Negative) H 08/11/16 20:24 Urine Bacteria Moderate per hpf (None-Few) H 08/11/16 20:24 Allergies Allergy/AdvReac Type Severity Reaction Status Date / Time Penicillins Allergy Mild Hives Verified 03/09/15 09:43 moxifloxacin Allergy Hives Verified 03/09/15 09:43 etodolac AdvReac Nausea Verified 03/09/15 09:43 Laboratory Last Values WBC 8.1 K/mcL (4.3-11.1) 08/11/16 19:53 RBC 4.24 M/mcL (4.19-5.50) 08/11/16 19:53 Hgb 12.5 g/dL (12.9-16.9) L 08/11/16 19:53 Hct 38.4 % (37.5-50.1) 08/11/16 19:53 MCV 90.6 fL (83.0-100.0) 08/11/16 19:53 MCH 29.5 pg (28.0-33.3) 08/11/16 19:53 MCHC 32.6 g/dL (31.6-35.5) 08/11/16 19:53 RDW 13.8 % (11.5-14.5) 08/11/16 19:53 Plt Count 192 K/mcL (140-400) 08/11/16 19:53 MPV 9.3 fL (9.4-12.4) L 08/11/16 19:53 Immature Gran % 0.4 % (0-4) 08/11/16 19:53 Seg Neutrophils % 80.2 % 08/11/16 19:53 Lymphocytes % 9.9 % 08/11/16 19:53 Monocytes % 9.1 % 08/11/16 19:53 Eosinophils % 0.2 % 08/11/16 19:53 Basophils % 0.2 % 08/11/16 19:53 Neutrophils # 6.5 K/mcL (1.6-8.9) 08/11/16 19:53 Lymphocytes # 0.8 K/mcL (0.6-4.6) 08/11/16 19:53 Monocytes # 0.7 K/mcL (0.0-1.3) 08/11/16 19:53 Eosinophils # 0.0 K/mcL (0.0-0.6) 08/11/16 19:53 Basophils # 0.0 K/mcL (0.0-0.2) 08/11/16 19:53 ABG pH 7.46 pH Units (7.32-7.45) H 08/11/16 19:28 ABG pCO2 40 mmHg (35-45) 08/11/16 19:28 ABG pO2 65 mmHg (85-104) L 08/11/16 19:28 ABG HCO3 28.4 mEQ/L (21-27) H 08/11/16 19:28 ABG Total CO2 29.6 mEq/L (20-26) H 08/11/16 19:28 ABG O2 Saturation 94 % (95-98) L 08/11/16 19:28 ABG Base Excess 4.2 mEq/L (-2.0 to 3.0) H 08/11/16 19:28 Liter Flow 3 L/MIN 08/11/16 19:28 Blood Gas Modality NC 08/11/16 19:28 Inspired O2 32 % 08/11/16 19:28 Sodium 136 mEq/L (136-145) 08/11/16 19:53 Potassium 4.2 mEq/L (3.5-4.5) 08/11/16 19:53 Chloride 103 mEq/L (98-109) 08/11/16 19:53 Carbon Dioxide 22 mEq/L (19-29) 08/11/16 19:53 BUN 20 mg/dL (8-26) 08/11/16 19:53 Creatinine 1.17 mg/dL (0.72-1.25) 08/11/16 19:53 Est GFR ( Amer) > 60 (> 60) 08/11/16 19:53 Est GFR (Non-Af Amer) > 60 (> 60) 08/11/16 19:53 BUN/Creatinine Ratio 17 (6-26) 08/11/16 19:53 Glucose 166 mg/dL (70-99) H 08/11/16 19:53 Calculated Osmolality 288 (280-300) 08/11/16 19:53 Lactic Acid 3.2 mmol/L (0.5-2.2) H 08/11/16 19:53 Calcium 9.1 mg/dL (8.6-10.8) 08/11/16 19:53 Total Bilirubin 0.4 mg/dL (0.2-1.2) 08/11/16 19:53 Direct Bilirubin 0.2 mg/dL (0.0-0.5) 08/11/16 19:53 Indirect Bilirubin 0.2 mg/dL (0.0-1.2) 08/11/16 19:53 AST 13 Units/L (5-34) 08/11/16 19:53 ALT 9 Units/L (0-55) 08/11/16 19:53 Alkaline Phosphatase 66 Units/L (38-126) 08/11/16 19:53 Ammonia 18 mcmol/L (18-72) 08/11/16 19:53 Troponin I 0.04 ng/mL (0-0.03) H* 08/11/16 19:53 Serum Total Protein 8.2 g/dL (6.0-8.3) 08/11/16 19:53 Albumin 2.9 g/dL (3.5-5.0) L 08/11/16 19:53 Globulin 5.3 g/dL (2.4-3.5) H 08/11/16 19:53 Albumin/Globulin Ratio 0.5 (1.1-2.2) L 08/11/16 19:53 Urine Color Dark Yellow (Yellow) 08/11/16 20:24 Urine Clarity Clear (Clear) 08/11/16 20:24 Urine pH 6.0 pH Units (5.0-8.0) 08/11/16 20:24 Ur Specific [place] 1.019 (1.010-1.025) 08/11/16 20:24 Urine Protein Negative mg/dL (Neg-Trace) 08/11/16 20:24 Urine Glucose (UA) Normal mg/dL (Normal) 08/11/16 20:24 Urine Ketones Negative mg/dL (Negative) 08/11/16 20:24 Urine Blood Small (Negative) H 08/11/16 20:24 Urine Nitrite Negative (Negative) 08/11/16 20:24 Urine Bilirubin Small (Negative) H 08/11/16 20:24 Urine Urobilinogen Normal mg/dL (Normal) 08/11/16 20:24 Ur Leukocyte Esterase Negative (Negative) 08/11/16 20:24 Urine Microscopic WBC Test Not Performed 08/11/16 20:24 Urine Bacteria Moderate per hpf (None-Few) H 08/11/16 20:24 Urine Mucus Few (Few) 08/11/16 20:24 Ur Culture Indicated? NO (NO) 08/11/16 20:24 Urine Opiates Screen Negative ng/mL (Zactwz=593) 08/11/16 20:24 Ur Barbiturates Screen Negative ng/mL (Wyxwoc=686) 08/11/16 20:24 Ur Phencyclidine Scrn Negative ng/mL (Cutoff=25) 08/11/16 20:24 Ur Amphetamines Screen Negative ng/mL (Ruwcof=8441) 08/11/16 20:24 U Benzodiazepines Scrn Negative ng/mL (Rgylup=734) 08/11/16 20:24 Urine Cocaine Screen Negative ng/mL (Cutoff= 300) 08/11/16 20:24 U Marijuana (THC) Screen Negative ng/mL (Cutoff = 50) 08/11/16 20:24 Ethyl Alcohol < 10 mg/dL (0-10) 08/11/16 19:53
[2016-08-11] MEDS: Ipratropium/Albuterol Neb 3 ML IH SCH (23:51)
[2016-08-12 00:23] LABS: Hemoglobin A1C 5.5 %
[2016-08-12] MEDS: Insulin LISPRO 300 UNITS/3 ML VIAL SQ SCH ×4 (00:29→17:56)
[2016-08-12 01:44] LABS: Bilirubin,Urine Small (Negative); Blood,Urine Large (Negative); Clarity,Urine Turbid (Clear); Color,Urine Dark Yellow (Yellow); Glucose,Urine (UA) Normal (Normal); Ketones,Urine Trace mg/dL (Negative); Leukocyte Esterase,Urine Small (Negative); Nitrite,Urine Negative (Negative); PH,Urine 6.5 pH Units (5.0-8.0); Protein,Urine 100 mg/dL (Neg-Trace); Specific Gravity,Urine > 1.030 (1.010-1.025)
[2016-08-12 02:12] LABS: Bacteria,Urine Few per hpf (None-Few); RBC,Urine TNTC per hpf (0-3); WBC,Urine 0-3 per hpf (0-3)
[2016-08-12] MEDS: 0.9 % Sodium Chloride 1,000 ML IVC SCH ×3 (04:21→16:16)
[2016-08-12] MEDS: Ipratropium/Albuterol Neb 3 ML IH SCH ×4 (04:28→22:40)
[2016-08-12] MEDS: *HR* Metoprolol 5 MG/5 ML VIAL IVP PRN ×3 (04:44→17:45)
[2016-08-12 04:45] LABS: VBG HCO3 30.2 mEq/L (21-27); VBG PH 7.38 pH Units (7.32-7.42)
[2016-08-12 05:02] LABS: Alanine Aminotransferase 7 Units/L (0-55); Albumin 2.6 g/dL (3.5-5.0); Albumin/Globulin Ratio 0.5 (1.1-2.2); Alkaline Phosphatase 57 Units/L (38-126); Aspartate Amino Transferase 15 Units/L (5-34); BUN/Creatinine Ratio 17 (6-26); Blood Urea Nitrogen 24 mg/dL (8-26); C-Reactive Protein 113 mg/L (Less than 5); Calcium 8.5 mg/dL (8.6-10.8); Carbon Dioxide 24 mEq/L (19-29); Chloride 103 mEq/L (98-109); Chol/HDL Ratio 4.9 (0-4.9); Cholesterol 118 mg/dL (< 200); Creatine Kinase 84 Units/L (30-200); Globulin 4.9 g/dL (2.4-3.5); Glucose 141 mg/dL (70-99); HDL Cholesterol 24 mg/dL (40-59); LDL Cholesterol,Calculated 60 mg/dL (0-99); Lactate Dehydrogenase 151 Units/L (159-327); Magnesium 1.5 mg/dL (1.6-2.6); Osmolality,Calculated 292 (280-300); Phosphorous 2.9 mg/dL (2.3-4.7); Potassium 4.2 mEq/L (3.5-4.5); Sodium 138 mEq/L (136-145); Total Protein 7.5 g/dL (6.0-8.3); Triglycerides 169 mg/dL (< 150); eGFR For African Americans > 60 (> 60); eGFR For Non-African Americans 50 (> 60)
[2016-08-12 05:03] LABS: Bilirubin,Total 0.8 mg/dL (0.2-1.2)
[2016-08-12] MEDS: *HR* Enoxaparin 40 MG/0.4 ML SYRINGE SQ SCH (05:43)
[2016-08-12] MEDS: Pantoprazole 40 MG VIAL IVP SCH (09:05)
[2016-08-12] MEDS: Aspirin Enteric Coated 81 MG Tablet PO SCH (09:14)
[2016-08-12] MEDS: Nystatin SUSP 5 ML UD.LIQ PO SCH ×4 (09:14→21:56)
--- NOTE | 2016-08-12 12:05 | Electrocardiograph Report ---
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
--- NOTE | 2016-08-12 16:07 | Internal Med Progress Note ---
Date of Encounter: 08/12/16 Time of Encounter: 16:05 - Assessment and plan (1) Pneumonia Current Visit: Yes Status: Acute Assessment and plan: Add Levaquin duoneb aerosol treatment every 4 and Mucinex Qualifiers: Pneumonia type: due to unspecified organism Laterality: unspecified laterality Lung location: unspecified part of lung Qualified Code(s): J18.9 - Pneumonia, unspecified organism (2) Constipation Current Visit: Yes Status: Acute Assessment and plan: Add colace Mirlax . Senna 1 tablet DAILY Qualifiers: Constipation type: slow transit constipation Qualified Code(s): K59.01 - Slow transit constipation (3) Acute pansinusitis, unspecified Current Visit: Yes Status: Acute Qualifiers: Recurrence: not specified as recurrent Qualified Code(s): J01.40 - Acute pansinusitis, unspecified (4) Acute respiratory failure with hypoxia Current Visit: Yes Status: Acute Assessment and plan: Secondary to bronchitis and polypharmacy (5) Serotonin syndrome Current Visit: Yes Status: Acute Assessment and plan: Hold all antipsychotic for now (6) Toxic metabolic encephalopathy Current Visit: Yes Status: Acute (7) Abnormal finger-nose test Current Visit: Yes Status: Acute Assessment and plan: With his confusion will check MRI brain rule out CVA very high risk for stroke with taking multiple antipsychotic . Aspirin 325 daily. Neuro Check every 4 hour - Subjective Interval history: Patient is more alert now. He Is complaining of a productive cough with greenish sputum . Complaining of constipation. Patient has coordination of his hand movement. No motor or sensory changes, upper or lower extremities, no visual changes . - Constitutional Vitals: Temp Pulse Resp BP Pulse Ox 98.7 F 116 24 139/70 98 08/12/16 15:31 08/12/16 15:31 08/12/16 15:31 08/12/16 15:31 08/12/16 15:31 General appearance: Present: A&O X 1, mild distress, morbidly obese. Absent: cooperative, disheveled, answers questions appropriately - Head Head exam: Present: atraumatic, normocephalic - Neck Neck exam general surgery: Present: supple, trachea midline. Absent: lymphadenopathy - Respiratory Respiratory exam: Present: decreased breath sounds, prolonged expiratory phase, rales. Absent: rhonchi, wheezes - Cardiovascular Cardiovascular exam: Present: RRR, +S1, +S2. Absent: diastolic murmur, gallop, rubs, systolic murmur - GI/Abdominal GI/Abdominal exam: Present: distended, normal bowel sounds, soft, tenderness ( Supra pubic tenderness), no peritoneal signs - Extremities Exam Extremities exam: Present: warm, radial pulses palpable and symetrical. Absent : calf tenderness, cyanotic, pedal edema - Neurological Exam Neurological exam: Present: CN II-XII intact, strengths equal and symetr throughout (Trvuja-sl-rigf test abnormal bilateral). Absent: pronater drift, facial droop, speech deficit - Skin Skin exam: Present: dry, intact Internal Medicine: Result - Labs CBC & Chem 7: 08/11/16 19:53 08/12/16 04:30 Labs: BMP 08/12/16 04:30 Sodium 138 Potassium 4.2 Chloride 103 Carbon Dioxide 24 BUN 24 Creatinine 1.41 H Glucose 141 H Calcium 8.5 L Cardiac Enzymes 08/12/16 08/12/16 Range/Units 04:30 10:58 Troponin I 0.05 H* 0.03 (0-0.03) ng/mL Liver Function 08/12/16 Range/Units 04:30 Total Bilirubin 0.8 D (0.2-1.2) mg/dL AST 15 (5-34) Units/L ALT 7 (0-55) Units/L Alkaline Phosphatase 57 (38-126) Units/L Albumin 2.6 L (3.5-5.0) g/dL Urine 08/12/16 Range/Units 01:02 Urine Color Dark Yellow (Yellow) Urine Clarity Turbid A (Clear) Urine pH 6.5 (5.0-8.0) pH Units Ur Specific [place] > 1.030 H (1.010-1.025) Urine Protein 100 H (Neg-Trace) mg/dL Urine Glucose (UA) Normal (Normal) mg/dL - ABG Interpretation ABG results: ABG ABG pH 7.46 pH Units (7.32-7.45) H 08/11/16 19:28 ABG pCO2 40 mmHg (35-45) 08/11/16 19:28 ABG pO2 65 mmHg (85-104) L 08/11/16 19:28 ABG O2 Saturation 94 % (95-98) L 08/11/16 19:28 - Impressions Impressions Chest X-Ray 08/11/16 19:09 IMPRESSION: Mild right basilar atelectasis versus pneumonia. D/ / Chanell Sims MD / Chanell Sims MD Interpreting Provider: Chanell Sims MD Head CT 08/11/16 19:09 IMPRESSION: No acute intracranial abnormality. Severe blackburn sinusitis. D/ / Elvin Palacios MD / Elvin Palacios MD Interpreting Provider: Elvin Palacios MD Abdomen/Pelvis CT 08/11/16 20:45 IMPRESSION: Patchy nodularity at the left lung base, likely due to postinflammatory -infectious change. However, given the nodular appearance, recommend follow-up noncontrast chest CT in 3 months time to document resolution Small amount a gas is seen within the bladder, likely due to Pike catheter insertion. Correlate with urinalysis to exclude cystitis. Otherwise no acute intra-abdominal abnormality D/ / Tal Pollock MD / Tal Pollock MD Interpreting Provider: Tal Pollock MD Chest CT 08/11/16 20:46 IMPRESSION: Patchy nodularity at the left lung base, likely due to postinflammatory -infectious change. However, given the nodular appearance, recommend follow-up noncontrast chest CT in 3 months time to document resolution Small amount a gas is seen within the bladder, likely due to Pike catheter insertion. Correlate with urinalysis to exclude cystitis. Otherwise no acute intra-abdominal abnormality D/ / Tal Pollock MD / Tal Pollock MD Interpreting Provider: Tal Pollock MD Consult Discharge Plan - Plan [facility]errals: [facility] [Non-Partnered Physician] - 08/27/16 8:15 am
[2016-08-12] MEDS ORDERED: Sennosides 8.6 MG TABLET PO PRN (16:32)
[2016-08-12] MEDS: Thiamine (B-1) 100 MG TABLET PO SCH (17:51)
[2016-08-12] MEDS: Doxycycline 100 MG in 0.9 % Sodium Chloride Mini Bag 100 ML IVPB SCH (17:51)
[2016-08-12] MEDS ORDERED: Sodium Phosphate 30 MMOL in D5% in Water 100 ML IVPB ONE (18:55)
[2016-08-12] MEDS ORDERED: Thiamine (B-1) 100 MG in D5% in Water 50 ML IVPB STA (19:02)
[2016-08-12] MEDS ORDERED: Calcium Gluconate 1,000 MG in D5% in Water 100 ML IVPB ONE (21:52)
[2016-08-12] MEDS ORDERED: Magnesium Sulfate 1 GM in D5% in Water 100 ML IVPB ONE (21:52)
[2016-08-12] MEDS: GuaiFENesin/Pseudophedrine TABLET PO SCH (21:55)
[2016-08-12] MEDS ORDERED: Metoclopramide 10 MG/2 ML VIAL IVP ONE (22:52)
[2016-08-13] MEDS: Insulin LISPRO 300 UNITS/3 ML VIAL SQ SCH ×4 (00:19→16:23)
[2016-08-13] MEDS: 0.9 % Sodium Chloride 1,000 ML IVC SCH ×2 (00:26→07:54)
[2016-08-13 04:53] LABS: Magnesium 1.6 mg/dL (1.6-2.6)
[2016-08-13 04:56] LABS: Phosphorous 3.2 mg/dL (2.3-4.7)
[2016-08-13] MEDS: Ipratropium/Albuterol Neb 3 ML IH SCH ×4 (05:29→23:27)
[2016-08-13] MEDS: Doxycycline 100 MG in 0.9 % Sodium Chloride Mini Bag 100 ML IVPB SCH ×2 (06:00→16:56)
[2016-08-13] MEDS: *HR* Enoxaparin 40 MG/0.4 ML SYRINGE SQ SCH (06:00)
[2016-08-13] MEDS: Aspirin Enteric Coated 81 MG Tablet PO SCH (07:42)
[2016-08-13] MEDS: Pantoprazole 40 MG VIAL IVP SCH (07:42)
[2016-08-13] MEDS: GuaiFENesin/Pseudophedrine TABLET PO SCH ×2 (07:42→20:47)
[2016-08-13] MEDS: Nystatin SUSP 5 ML UD.LIQ PO SCH ×4 (07:42→20:50)
[2016-08-13] MEDS: *HR* OxyCODONE Immed Rel 5 MG TABLET PO PRN ×3 (08:01→23:14)
--- NOTE | 2016-08-13 10:46 | Internal Med Progress Note ---
Date of Encounter: 08/13/16 Time of Encounter: 09:30 - Assessment and plan (1) Pneumonia Current Visit: Yes Status: Acute Assessment and plan: Continue current antibiotic, aerosol treatment may consider to change to oral antibiotic next a.m. Qualifiers: Pneumonia type: due to unspecified organism Laterality: unspecified laterality Lung location: unspecified part of lung Qualified Code(s): J18.9 - Pneumonia, unspecified organism (2) Constipation Current Visit: Yes Status: Acute Assessment and plan: Adjust Laxatives Qualifiers: Constipation type: slow transit constipation Qualified Code(s): K59.01 - Slow transit constipation (3) Acute pansinusitis, unspecified Current Visit: Yes Status: Acute Qualifiers: Recurrence: not specified as recurrent Qualified Code(s): J01.40 - Acute pansinusitis, unspecified (4) Acute respiratory failure with hypoxia Current Visit: Yes Status: Acute Assessment and plan: Secondary to hypophosphatemia syndrome ,bronchitis and polypharmacy (5) Serotonin syndrome Current Visit: Yes Status: Acute Assessment and plan: Will restart medication and small dose need rehabilitation placement temporarily for monitoring his medication and physical therapy (6) Toxic metabolic encephalopathy Current Visit: Yes Status: Acute (7) Abnormal finger-nose test Current Visit: Yes Status: Acute Assessment and plan: Improving MRI brain no evidence of stroke (8) Benign positional vertigo Current Visit: Yes Status: Acute Assessment and plan: Add Meclizine occupational therapy consult Qualifiers: Laterality: unspecified laterality Qualified Code(s): H81.10 - Benign paroxysmal vertigo, unspecified ear - Time Spent With Patient 25 - 35 minutes - Subjective Interval history: Patient is complaining of trouble with his balance. Feels more dizzy when he moves his head. Shortness of breath is improving now , He is complaining of dry cough . Feels much better compared to yesterday. Complain of constipation - Constitutional Vitals: Temp Pulse Resp BP Pulse Ox 98.3 F 99 22 128/69 97 08/13/16 07:10 08/13/16 07:10 08/13/16 07:10 08/13/16 07:10 08/13/16 08:00 General appearance: Present: A&O X 1, mild distress, morbidly obese. Absent: cooperative, disheveled, answers questions appropriately - Head Head exam: Present: atraumatic, normocephalic - Respiratory Respiratory exam: Present: decreased breath sounds, prolonged expiratory phase. Absent: accessory muscle use, rales, rhonchi, wheezes - Cardiovascular Cardiovascular exam: Present: RRR, +S1, +S2. Absent: diastolic murmur, gallop, rubs, systolic murmur - GI/Abdominal GI/Abdominal exam: Present: normal bowel sounds, soft, tenderness (Suprapubic tenderness), no peritoneal signs. Absent: distended - Extremities Exam Extremities exam: Present: warm, radial pulses palpable and symetrical. Absent : calf tenderness, cyanotic, pedal edema - Neurological Exam Neurological exam: Present: CN II-XII intact, oriented X3, no focal deficits. Absent: pronater drift, facial droop, speech deficit - Skin Skin exam: Present: dry, intact Internal Medicine: Result - Labs CBC & Chem 7: 08/11/16 19:53 08/12/16 04:30 Labs: Cardiac Enzymes 08/12/16 Range/Units 10:58 Troponin I 0.03 (0-0.03) ng/mL - ABG Interpretation ABG results: ABG ABG pH 7.46 pH Units (7.32-7.45) H 08/11/16 19:28 ABG pCO2 40 mmHg (35-45) 08/11/16 19:28 ABG pO2 65 mmHg (85-104) L 08/11/16 19:28 ABG O2 Saturation 94 % (95-98) L 08/11/16 19:28 - Impressions Impressions Brain MRI 08/12/16 15:55 IMPRESSION: 1. No acute intracranial abnormality. 2. Stable diffuse parenchymal volume loss and mild chronic white matter microvascular ischemic changes. 3. Diffuse paranasal sinus disease and bilateral mastoid effusions. D/ / Lopez Del Toro MD / Lopez Del Toro MD Interpreting Provider: Lopez Del Toro MD Consult Discharge Plan - Plan Additional Instructions: Admission need rehabilitation , Will consult physical therapy and occupational therapy,May need monitoring of his medication [facility]errals: [facility] [Non-Partnered Physician] - 08/27/16 8:15 am
[2016-08-13] MEDS ORDERED: Sennosides/Docusate Sodium TABLET PO PRN (11:00)
[2016-08-13] MEDS: Divalproex (12 HR) 500 MG TABLET PO SCH ×2 (12:28→20:47)
[2016-08-13] MEDS: Thiamine (B-1) 100 MG TABLET PO SCH (12:29)
[2016-08-13] MEDS: Furosemide 20 MG TABLET PO SCH ×2 (12:34→20:48)
[2016-08-13] MEDS ORDERED: risperiDONE 0.25 MG TABLET PO SCH (21:00)
[2016-08-13] MEDS ORDERED: Insulin LISPRO 300 UNITS/3 ML VIAL SQ SCH (21:00)
[2016-08-14] MEDS: Ipratropium/Albuterol Neb 3 ML IH SCH (04:38)
[2016-08-14] MEDS: Doxycycline 100 MG in 0.9 % Sodium Chloride Mini Bag 100 ML IVPB SCH (05:30)
[2016-08-14] MEDS: *HR* Enoxaparin 40 MG/0.4 ML SYRINGE SQ SCH (05:31)
[2016-08-14 07:35] VITALS: BP 124/85
[2016-08-14] MEDS: Insulin LISPRO 300 UNITS/3 ML VIAL SQ SCH (08:20)
[2016-08-14] MEDS: Aspirin Enteric Coated 81 MG Tablet PO SCH (08:24)
[2016-08-14] MEDS: GuaiFENesin/Pseudophedrine TABLET PO SCH (08:24)
[2016-08-14] MEDS: Divalproex (12 HR) 500 MG TABLET PO SCH (08:24)
[2016-08-14] MEDS: Nystatin SUSP 5 ML UD.LIQ PO SCH ×2 (08:24→08:30)
[2016-08-14] MEDS: Thiamine (B-1) 100 MG TABLET PO SCH (08:24)
[2016-08-14] MEDS: Furosemide 20 MG TABLET PO SCH (08:25)
[2016-08-14] MEDS: Pantoprazole 40 MG VIAL IVP SCH (08:25)
[2016-08-14] MEDS ORDERED: levoFLOXacin 750 MG TABLET PO ONE (10:08)
--- NOTE | 2016-08-14 10:15 | Discharge Summary ---
Date of Encounter: 08/14/16 Time of Encounter: 10:11 - Discharge Diagnosis (1) Pneumonia Priority: Primary Status: Acute Comments: Acute metabolic encephalopathy likely secondary to hypoxia due to community- acquired pneumonia and Pansinusitis with bilteral mastoid effusions Qualifiers: Pneumonia type: due to unspecified organism Laterality: unspecified laterality Lung location: unspecified part of lung Qualified Code(s): J18.9 - Pneumonia, unspecified organism (2) Acute pansinusitis, unspecified Priority: Primary Status: Acute Qualifiers: Recurrence: not specified as recurrent Qualified Code(s): J01.40 - Acute pansinusitis, unspecified (3) Altered mental status Priority: Primary Status: Acute Qualifiers: Altered mental status type: coma Coma depth: Lety coma 9-12 Coma timing: at arrival to emergency department Qualified Code(s): R40.2422 - Lety coma scale score 9-12, at arrival to emergency department (4) Toxic metabolic encephalopathy Priority: Primary Status: Acute (5) Bipolar disorder Priority: Secondary Status: Chronic Qualifiers: Active/Remission status: currently active Current bipolar episode type: depressed Current episode severity: unspecified Qualified Code(s): F31.30 - Bipolar disorder, current episode depressed, mild or moderate severity, unspecified (6) Hyperlipidemia Priority: Secondary Status: Chronic Qualifiers: Hyperlipidemia type: mixed hyperlipidemia Qualified Code(s): E78.2 - Mixed hyperlipidemia (7) Hypertension Priority: Secondary Status: Chronic Qualifiers: Hypertension type: essential hypertension Qualified Code(s): I10 - Essential (primary) hypertension (8) Seizure Priority: Secondary Status: Acute - Discharge Medications Prescriptions: Levofloxacin [Levaquin] 500 mg PO DAILY #5 tablet Home Medications: Cholecalciferol (D-3) [Vitamin D] 1,000 unit PO DAILY #0 05/13/15 [History] Omeprazole [PriLOSEC] 40 mg PO BID 05/13/15 [History] TraMADol [Ultram] 100 mg PO QID 05/13/15 [History] Allopurinol [Zyloprim] 100 mg PO DAILY tablet 05/23/15 [Rx] Albuterol Sulfate [Proair Hfa] 1 - 2 puff IH TID PRN 08/11/16 [History] Aspirin [Lo-Dose Aspirin EC] 81 mg PO DAILY 08/11/16 [History] Divalproex (12 HR) [Depakote (12 HR)] 500 mg PO BID 08/11/16 [History] Furosemide [Lasix] 20 mg PO BID 08/11/16 [History] Metoprolol [Lopressor] 50 mg PO BID 08/11/16 [History] Potassium Chloride [K-Tab ER] 20 meq PO BID 08/11/16 [History] RisperiDONE [RisperDAL] 0.25 mg PO HS 08/11/16 [History] Sennosides/Docusate Sodium [Senna-S Tablet] 1 tab PO BID PRN 08/11/16 [History] Simvastatin [Zocor] 40 mg PO HS 08/11/16 [History] Levofloxacin [Levaquin] 500 mg PO DAILY #5 tablet 08/14/16 [Rx] Allergies/Adverse Reactions: Allergies Penicillins Allergy (Mild, Verified 03/09/15 09:43) Hives moxifloxacin Allergy (Verified 03/09/15 09:43) Hives etodolac Adverse Reaction (Verified 03/09/15 09:43) Nausea Procedures/tests Complete & Pending: Procedures Performed prior 72 hours Category Date Time Status MR head/brain wo con [MR] Routine MRI 08/12/16 15:55 Completed Date of admission: 08/11/16 23:17 Primary care physician: PCP NO Consults: 08/12/16 09:43 Consult to Mine Safety Director [CONS] Routine Reason for SW Consult: Need ECF 08/12/16 16:34 Consult to Physical Therapy [CONS] Routine Comment: Evaluate, develop and implement POC 08/13/16 09:15 Consult to Invasive Line Access Team [CONS] Routine Reason for Consult: LIMITED ACCESS Line Type: EPIV 08/13/16 10:43 Consult to Occupational Therapy [CONS] Routine Comment: Evaluate, develop and implement POC - Patient Status Disposition: Transfer SNF Condition: Fair Overall status at discharge: patient is progressing back to baseline - Discharge Instructions [facility] With: [facility] [[facility] Physician] - 08/27/16 8:15 am Additional Instructions: Admission need rehabilitation , Will consult physical therapy and occupational therapy,May need monitoring of his medication. Follow with primary care physician within the next 7 days. Continue 5 more days of Levaquin. - Diet and Activity Activity: increase activity as tolerated Diet: low fat, low cholesterol Hospital course: Mr. Walker is a 71 year old male [facility] patient with history significant for seizure disorder, bipolar disorder, depression and anxiety, hypertension, dyslipidemia, GERD, osteoarthritis, osteopenia, reactive airway disease/COPD not oxygen dependent, gout, obesity, nonsmoker. Patient was grossly encephalopathic. Speech was garbled and indistinguishable. Grossly observed course fasciculations of tongue, twitching and hyperreflexia of extremities observed upon admission. The patient is admitted to [facility] via the emergency department when he presented by EMS services from a [facility] living arrangement with reports of altered mental status. Patient had similar episodes in the past and had been admitted several times for similar symptoms. On arrival to the emergency department the patient was found to be severely altered and nonverbal. Patient was reported to had been at his baseline status up until noon the day of presentation. He had seen his home health nurse in consultation. During that appointment he was found to be somewhat altered, hyperirritable and combative. Home health nurse left the facility after which the patient became more severely altered and none responsive. The scene as reported by EMS found the patient to be covered in urine and feces. Oxygen saturation was 83% on room air. His upper airway was patent but I do not really sound was heard with his respirations. Did not respond to any direct questioning and is unable to follow commands. The patient was admitted to the hospital and received a dose of Levaquin and vancomycin at the emergency room as he CT scan showed possible small infiltrates and a CT scan of the chest. The CT scan of the head demonstrated severe pansinusitis which was bilateral. The patient also received doxycycline IV. At the moment he is more awake and able to give a proper history. Apparently he was allergic to moxifloxacin but he received Levaquin without any problem in the emergency room. He is a stable to be discharged to have a rehabilitation facility on 5 more days of Levaquin. - Time Spent with Patient Total time spent providing and/or coordinating discharge services: Greater than 30 minutes - Constitutional Vitals: Temp Pulse Resp BP Pulse Ox 98 F 102 18 124/85 93 L 08/14/16 07:00 08/14/16 07:00 08/14/16 08:47 08/14/16 08:47 08/14/16 07:00 General appearance: Present: A&O X 1, mild distress, morbidly obese. Absent: cooperative, disheveled, answers questions appropriately - Head Head exam: Present: atraumatic, normocephalic - Eye Eye exam: Present: PERRL, conjuntiva pink, sclera anicteric Pupils: Present: PERRL - Neck Neck exam general surgery: Present: supple, trachea midline. Absent: lymphadenopathy - Respiratory Respiratory exam: Present: decreased breath sounds, CTAB. Absent: accessory muscle use, rales, rhonchi, wheezes - Cardiovascular Cardiovascular exam: Present: RRR, +S1, +S2. Absent: diastolic murmur, gallop, rubs, systolic murmur - GI/Abdominal GI/Abdominal exam: Present: normal bowel sounds, soft, no peritoneal signs. Absent: distended, tenderness - Extremities Exam Extremities exam: Present: warm, radial pulses palpable and symetrical. Absent : calf tenderness, cyanotic, pedal edema - Neurological Exam Neurological exam: Present: CN II-XII intact, oriented X3, no focal deficits. Absent: pronater drift, facial droop, speech deficit Additional comments: Somnolent but able to give a proper history. Denies any sinus pain at the moment. - Skin Skin exam: Present: dry, intact
--- NOTE | 2016-08-14 10:26 | Physician Discharge Referral ---
ExtendedCare Referral Info Provider in Charge after Transfer: PCP Institutional Level of Care: Skilled - Diagnosis (1) Pneumonia Status: Acute (2) Acute pansinusitis, unspecified Status: Acute (3) Altered mental status Status: Acute (4) Toxic metabolic encephalopathy Status: Acute (5) Bipolar disorder Status: Chronic (6) Hyperlipidemia Status: Chronic (7) Hypertension Status: Chronic (8) Seizure Status: Acute - Transfer Medications Prescriptions: Levofloxacin [Levaquin] 500 mg PO DAILY #5 tablet Home Medications: Cholecalciferol (D-3) [Vitamin D] 1,000 unit PO DAILY #0 05/13/15 [History] Omeprazole [PriLOSEC] 40 mg PO BID 05/13/15 [History] TraMADol [Ultram] 100 mg PO QID 05/13/15 [History] Allopurinol [Zyloprim] 100 mg PO DAILY tablet 05/23/15 [Rx] Albuterol Sulfate [Proair Hfa] 1 - 2 puff IH TID PRN 08/11/16 [History] Aspirin [Lo-Dose Aspirin EC] 81 mg PO DAILY 08/11/16 [History] Divalproex (12 HR) [Depakote (12 HR)] 500 mg PO BID 08/11/16 [History] Furosemide [Lasix] 20 mg PO BID 08/11/16 [History] Metoprolol [Lopressor] 50 mg PO BID 08/11/16 [History] Potassium Chloride [K-Tab ER] 20 meq PO BID 08/11/16 [History] RisperiDONE [RisperDAL] 0.25 mg PO HS 08/11/16 [History] Sennosides/Docusate Sodium [Senna-S Tablet] 1 tab PO BID PRN 08/11/16 [History] Simvastatin [Zocor] 40 mg PO HS 08/11/16 [History] Levofloxacin [Levaquin] 500 mg PO DAILY #5 tablet 08/14/16 [Rx] Allergies/Adverse Reactions: Allergies Penicillins Allergy (Mild, Verified 03/09/15 09:43) Hives moxifloxacin Allergy (Verified 03/09/15 09:43) Hives etodolac Adverse Reaction (Verified 03/09/15 09:43) Nausea - Respiratory Orders Smoking Cessation: Smoking cessation has been advised. For more information, call the [place] Tobacco Quit Line at 6-125-WORX-NOW. - Advance Directives Code Status: Full Code - Treatments List/Other: Admission need rehabilitation , Will consult physical therapy and occupational therapy,May need monitoring of his medication. Follow with primary care physician within the next 7 days. Continue 5 more days of Levaquin. - Diet Orders No Added Salt (DARLIN) CERTIFICATION: I certify that the transfer of the above named patient to an Extended Care Facility is necessary for the continuing treatment of the diagnosis listed. The above information is true and accurate reflection of patient's current condition. Confidential - Redisclosure prohibited without a patient's written consent.
[2016-08-15 00:12] LABS: Valproate Free 11 ug/mL (7-23); Valproate Total 16 ug/mL (50-125)
[2016-08-15 11:44] LABS: Valproate % Free 69 % (5-18)
== END 2016-08-14 12:18 | DRG 871 ==
LOC: EMEROO 19:03 → 2NNU 23:17 → SUATTDRO 23:17 → 2NNU 08-12 00:07
PROVIDERS: ADMIT Internal Medicine; ATTEND Internal Medicine

== ENCOUNTER 2017-11-02 17:12 | Inpatient (IN) ==
--- NOTE | 2017-11-02 17:31 | Emergency Department Note ---
Disposition Clinical Impression: Aspiration pneumonia Qualifiers: Aspiration pneumonia type: unspecified Laterality: right Lung location: middle lobe of lung Qualified Code(s): J69.0 - Pneumonitis due to inhalation of food and vomit Syncope Qualifiers: Syncope type: unspecified Qualified Code(s): R55 - Syncope and collapse Disposition: Admitted As Inpatient Condition: Good Referrals: NONE,PCP [Non-Partnered Physician] - Forms: ED Satisfaction Letter Time of Disposition: 20:43 Altered Mental Status HPI - General Chief Complaint: ED Altered Mental Status Stated Complaint: AMS Time Seen by Provider: 11/02/17 17:30 Source: patient, EMS Mode of arrival: EMS Limitations: no limitations Nursing Notes Reviewed: Yes Vital Signs Reviewed: Yes - History of Present Illness HPI Narrative: Patient is a 72-year-old male with past medical history of hypertension, hyperlipidemia, COPD, CAD. He presents today via EMS transfer from the [facility] due to concern for being found unresponsive. According to EMS, one of the patient's housemates said that he was unresponsive in his chair, called 911. The patient himself does not remember any details from the event. He denies any symptoms of chest pain, shortness of breath, nausea, vomiting, fevers, diarrhea, numbness, tingling, weakness. He does report some sharp epigastric pain just prior to EMS arriving. Otherwise, denies any other symptoms. Patient vitals were stable upon EMS arrival. Bedside glucose was 108. - Related Data Home Medications Medication Instructions Recorded Confirmed Cholecalciferol (D-3) [Vitamin D] 1,000 unit PO DAILY #0 05/13/15 08/11/16 Omeprazole [PriLOSEC] 40 mg PO BID 05/13/15 08/11/16 TraMADol [Ultram] 100 mg PO QID 05/13/15 08/11/16 Albuterol Sulfate [Proair Hfa] 1 - 2 puff IH TID PRN 08/11/16 08/11/16 Aspirin [Lo-Dose Aspirin EC] 81 mg PO DAILY 08/11/16 08/11/16 Divalproex (12 HR) [Depakote (12 500 mg PO BID 08/11/16 08/11/16 HR)] Furosemide [Lasix] 20 mg PO BID 08/11/16 08/11/16 Metoprolol [Lopressor] 50 mg PO BID 08/11/16 08/11/16 Potassium Chloride [K-Tab ER] 20 meq PO BID 08/11/16 08/11/16 Sennosides/Docusate Sodium 1 tab PO BID PRN 08/11/16 08/11/16 [Senna-S Tablet] Simvastatin [Zocor] 40 mg PO HS 08/11/16 08/11/16 risperiDONE [RisperDAL] 0.25 mg PO HS 08/11/16 08/11/16 Previous Rx's Medication Instructions Recorded Allopurinol [Zyloprim] 100 mg PO DAILY tablet 05/23/15 Levofloxacin [Levaquin] 500 mg PO DAILY #5 tablet 08/14/16 Allergies Allergy/AdvReac Type Severity Reaction Status Date / Time Penicillins Allergy Mild Hives Verified 03/09/15 09:43 moxifloxacin Allergy Hives Verified 03/09/15 09:43 etodolac AdvReac Nausea Verified 03/09/15 09:43 All systems ED: reviewed and negative except as stated. Constitutional: Denies: fever Cardiovascular: Denies: chest pain, palpitations Respiratory: Denies: cough, dyspnea, wheezes Gastrointestinal: Reports: abdominal pain. Denies: nausea, vomiting, diarrhea, constipation, hematemesis, melena, hematochezia Genitourinary: Denies: urgency, dysuria Musculoskeletal: Denies: back pain, neck pain Neurological: Denies: headache, weakness, numbness Past Medical History - Past Medical History Attestation: Yes The following information was validated with the patient. 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 Otherwise reactive to light.) - ENT ENT exam: normal exam, normal oropharynx, mucous membranes moist - Neck Neck exam: Present: normal inspection, full ROM, trachea midline - Chest Chest inspection: Present: normal inspection, symmetric chest wall rise - Respiratory Respiratory exam: Present: normal lung sounds bilaterally - Cardiovascular Cardiovascular exam: Present: regular rate, normal rhythm, normal heart sounds - Abdominal Exam Abdominal exam: Present: soft, Non-Tender. Absent: tenderness, distention, guarding, rebound, rigidity - Extremities Exam Extremities exam: Present: normal inspection, full ROM. Absent: tenderness, pedal edema - Neurological Exam Neurological exam: Present: alert, oriented X3, CN II-XII intact. Absent: motor sensory deficit - Psychiatric Psychiatric exam: Present: normal affect, normal mood - Skin Skin exam: Present: warm, dry, intact, normal color Course Course Narrative: Diastolic blood pressure elevated. Otherwise, the rest of the vitals within normal limits. Patient no focal neurologic deficits. He did have a residual right sided mydriasis that he states is chronic. Heart RRR, lungs CTA, abd soft and nontender. Patient is a poor historian, concerned for unexplained possible syncope. We will obtain CT of the head with noncontrast, CT abdomen and pelvis with IV contrast, basic labs, EKG, troponin, electrolytes. 20:40 troponin negative. No elevation white blood cell count. EKG showed no acute ST changes. No major electrolyte abnormality. Head CT negative. CT abdomen and pelvis shows a right middle lobe pneumonia but no other acute abnormalities. Patient has multiple allergies and had to be started on vancomycin and aztreonam for coverage. Vitals remained stable. Patient has been accepted by hospitalist for admission at this time. Chest X-Ray 11/02/17 17:31 IMPRESSION: No acute process. D/ / Justin Ellis MD / Justin Ellis MD Interpreting Provider: Justin Ellis MD Head CT 11/02/17 17:31 IMPRESSION: No acute intracranial abnormality. Chronic pansinusitis. D/ / Austen Woodall MD / Austen Woodall MD Interpreting Provider: Austen Woodall MD Abdomen/Pelvis CT 11/02/17 17:32 IMPRESSION: Right middle lobe pneumonia. Follow-up to resolution recommended. The bladder wall appears mildly thickened which may be artifactual due to nondistention versus cystitis. Clinical correlation recommended. D/ / Chanell Sims MD / Chanell Sims MD Interpreting Provider: Chanell Sims MD Vital Signs Temperature 98.7 F 11/02/17 17:19 Pulse Rate 94 11/02/17 17:19 Respiratory Rate 16 11/02/17 17:19 Blood Pressure 126/111 11/02/17 17:19 O2 Sat by Pulse Oximetry 95 11/02/17 17:19 Temperature 98.7 F 11/02/17 17:19 Pulse Rate 94 11/02/17 17:19 Respiratory Rate 16 11/02/17 17:19 Blood Pressure 126/111 11/02/17 17:19 O2 Sat by Pulse Oximetry 98 11/02/17 17:41 Oxygen Delivery Oxygen Delivery Room Air Altered Mental Status - MDM Narrative Medical decision making narrative: Diastolic blood pressure elevated. Otherwise, the rest of the vitals within normal limits. Patient no focal neurologic deficits. He did have a residual right sided mydriasis that he states is chronic. Heart RRR, lungs CTA, abd soft and nontender. Patient is a poor historian, concerned for unexplained possible syncope. We will obtain CT of the head with noncontrast, CT abdomen and pelvis with IV contrast, basic labs, EKG, troponin, electrolytes. 20:40 troponin negative. No elevation white blood cell count. EKG showed no acute ST changes. No major electrolyte abnormality. Head CT negative. CT abdomen and pelvis shows a right middle lobe pneumonia but no other acute abnormalities. Patient has multiple allergies and had to be started on vancomycin and aztreonam for coverage. Vitals remained stable. Patient has been accepted by hospitalist for admission at this time. - Medical Records Medical records reviewed: Yes I reviewed the patient's medical records. - Lab Data Lab results reviewed: Yes I reviewed the patient's lab results. Result diagrams: 11/02/17 17:56 11/02/17 17:56 Lab Results 03/11/02/17 11/02/17 Range/Units 17:56 17:56 17:56 WBC 6.4 (4.3-11.1) K/mcL RBC 3.89 L (4.19-5.50) M/mcL Hgb 11.4 L (12.9-16.9) g/dL Hct 36.6 L (37.5-50.1) % MCV 94.1 (83.0-100.0) fL MCH 29.3 (28.0-33.3) pg MCHC 31.1 L (31.6-35.5) g/dL RDW 14.6 H (11.5-14.5) % Plt Count 253 (140-400) K/mcL MPV 9.4 (9.4-12.4) fL Immature Gran % 0.6 (0-4) % Seg Neutrophils % 48.7 % Lymphocytes % 32.3 % Monocytes % 14.0 % Eosinophils % 3.9 % Basophils % 0.5 % Neutrophils # 3.1 (1.6-8.9) K/mcL Lymphocytes # 2.1 (0.6-4.6) K/mcL Monocytes # 0.9 (0.0-1.3) K/mcL Eosinophils # 0.3 (0.0-0.6) K/mcL Basophils # 0.0 (0.0-0.2) K/mcL PT 12.5 H (9.4-12.1) Seconds INR 1.2 APTT 31.0 (26.0-36.0) Seconds Sodium 135 L (136-145) mEq/L Potassium 4.3 (3.5-5.1) mEq/L Chloride 99 (98-107) mEq/L Carbon Dioxide 25 (23-29) mEq/L BUN 25 H (8-23) mg/dL Creatinine 1.55 H (0.70-1.30) mg/dL Est GFR ( Amer) 54 L (> 60) Est GFR (Non-Af Amer) 45 L (> 60) BUN/Creatinine Ratio 16 (6-26) Glucose 115 H (70-105) mg/dL Calculated Osmolality 285 (280-300) Calcium 9.2 (8.6-10.3) mg/dL Phosphorus 4.3 (2.7-4.5) mg/dL Magnesium 2.2 (1.6-2.6) mg/dL Total Bilirubin 0.6 (0.3-1.0) mg/dL Direct Bilirubin 0.3 H (0.0-0.2) mg/dL Indirect Bilirubin 0.3 (0.0-1.2) mg/dL AST 15 (13-39) Units/L ALT 8 (7-52) Units/L Alkaline Phosphatase 54 (34-104) Units/L Ammonia (16-53) mcmol/L Troponin I < 0.03 (< 0.04) ng/mL Serum Total Protein 8.3 (6.4-8.9) g/dL Albumin 3.4 L (3.5-5.7) g/dL Globulin 4.9 H (2.4-3.5) g/dL Albumin/Globulin Ratio 0.7 L (1.1-2.2) Urine Color (Yellow) Urine Clarity (Clear) Urine pH (5.0-8.0) pH Units Ur Specific [place] (1.010-1.025) Urine Protein (Neg-Trace) mg/dL Urine Glucose (UA) (Normal) mg/dL Urine Ketones (Negative) mg/dL Urine Blood (Negative) Urine Nitrite (Negative) Urine Bilirubin (Negative) Urine Urobilinogen (Normal) mg/dL Ur Leukocyte Esterase (Negative) Urine Microscopic RBC (0-3) per hpf Urine Microscopic WBC (0-3) per hpf Ur Squamous Epith Cells (None-Few) per lpf Urine Bacteria (None-Few) per hpf Hyaline Casts (None-Few) per lpf Ur Culture Indicated? (NO) 11/02/17 11/02/17 Range/Units 17:56 18:27 WBC (4.3-11.1) K/mcL RBC (4.19-5.50) M/mcL Hgb (12.9-16.9) g/dL Hct (37.5-50.1) % MCV (83.0-100.0) fL MCH (28.0-33.3) pg MCHC (31.6-35.5) g/dL RDW (11.5-14.5) % Plt Count (140-400) K/mcL MPV (9.4-12.4) fL Immature Gran % (0-4) % Seg Neutrophils % % Lymphocytes % % Monocytes % % Eosinophils % % Basophils % % Neutrophils # (1.6-8.9) K/mcL Lymphocytes # (0.6-4.6) K/mcL Monocytes # (0.0-1.3) K/mcL Eosinophils # (0.0-0.6) K/mcL Basophils # (0.0-0.2) K/mcL PT (9.4-12.1) Seconds INR APTT (26.0-36.0) Seconds Sodium (136-145) mEq/L Potassium (3.5-5.1) mEq/L Chloride (98-107) mEq/L Carbon Dioxide (23-29) mEq/L BUN (8-23) mg/dL Creatinine (0.70-1.30) mg/dL Est GFR ( Amer) (> 60) Est GFR (Non-Af Amer) (> 60) BUN/Creatinine Ratio (6-26) Glucose (70-105) mg/dL Calculated Osmolality (280-300) Calcium (8.6-10.3) mg/dL Phosphorus (2.7-4.5) mg/dL Magnesium (1.6-2.6) mg/dL Total Bilirubin (0.3-1.0) mg/dL Direct Bilirubin (0.0-0.2) mg/dL Indirect Bilirubin (0.0-1.2) mg/dL AST (13-39) Units/L ALT (7-52) Units/L Alkaline Phosphatase (34-104) Units/L Ammonia 23 (16-53) mcmol/L Troponin I (< 0.04) ng/mL Serum Total Protein (6.4-8.9) g/dL Albumin (3.5-5.7) g/dL Globulin (2.4-3.5) g/dL Albumin/Globulin Ratio (1.1-2.2) Urine Color Dark Yellow (Yellow) Urine Clarity Clear (Clear) Urine pH 6.0 (5.0-8.0) pH Units Ur Specific [place] 1.025 (1.010-1.025) Urine Protein Trace (Neg-Trace) mg/dL Urine Glucose (UA) Normal (Normal) mg/dL Urine Ketones Trace H (Negative) mg/dL Urine Blood Moderate H (Negative) Urine Nitrite Negative (Negative) Urine Bilirubin Small H (Negative) Urine Urobilinogen Normal (Normal) mg/dL Ur Leukocyte Esterase Small H (Negative) Urine Microscopic RBC 3-5 H (0-3) per hpf Urine Microscopic WBC 3-5 H (0-3) per hpf Ur Squamous Epith Cells Moderate H (None-Few) per lpf Urine Bacteria None Seen (None-Few) per hpf Hyaline Casts Few (None-Few) per lpf Ur Culture Indicated? YES A (NO) - Radiology Data Radiology results reviewed: Yes I reviewed the patient's radiology results. Chest X-Ray 11/02/17 17:31 IMPRESSION: No acute process. D/ / Justin Ellis MD / Justin Ellis MD Interpreting Provider: Justin Ellis MD Head CT 11/02/17 17:31 IMPRESSION: No acute intracranial abnormality. Chronic pansinusitis. D/ / Austen Woodall MD / Austen Woodall MD Interpreting Provider: Austen Woodall MD Abdomen/Pelvis CT 11/02/17 17:32 IMPRESSION: Right middle lobe pneumonia. Follow-up to resolution recommended. The bladder wall appears mildly thickened which may be artifactual due to nondistention versus cystitis. Clinical correlation recommended. D/ / Chanell Sims MD / Chanell Sims MD Interpreting Provider: Chanell Sims MD - EKG Data EKG attestation: Yes I reviewed and interpreted this EKG. EKG results narrative: 11/02/2017 at 17:22. Significant artifact present. Appears to be normal sinus rhythm. Rate 86. HI within normal limits. QTC 363. No acute ST elevation or depression. We will repeat EKG due to significant artifact. EKG #2. 11/02/2017 at 17:52. Normal sinus rhythm. Rate 83. HI 169. QRS 90. QTc 429. Normal axis. No acute ST elevation or depression. TPA Checklist - LKW: 3-4.5 hrs Add. Warnings/Precautions Patient/family understanding: The patient/family members have been counseled and understood the risk, benefit , and alternatives of treatment. SSally - Valerie Situation: Demographics, MOA Background: Presenting Complaint, Relevant PMH, Meds, & Allergies Assessment: Vital Signs, Course and respsone to treatment, Exam Concerns, Patient/Family Expectation, Pertinant Lab Results Recommendation: Barrier(s) to disposition, Recommendation based on pending studies, treatments, or consults S.B.Syd Report Given to: Dr. Mazin Padilla Repor Time: 20:43 Attestation Statement - Attestation Attestation: I, Johnathon Chavez DO, examined this patient [id number] and my medical decision-making was reviewed with Dr. Gilberto Palafox Resident Physician. I agree with the documented findings, disposition and treatment plan as described except to the extent set forth below. Please see my progress notes for details.
--- NOTE | 2017-11-02 17:54 | Emergency Department Note ---
Disposition Clinical Impression: Aspiration pneumonia, Syncope Disposition: Admitted As Inpatient Condition: Good Referrals: NONE,PCP [Non-Partnered Physician] - Forms: ED Satisfaction Letter Time of Disposition: 19:58 General Adult HPI - General Chief complaint: ED Altered Mental Status Stated complaint: AMS Time Seen by Provider: 11/02/17 17:30 Source: patient, EMS Mode of arrival: EMS Limitations: no limitations - History of Present Illness Pain Scale: 4 - Related Data Home Medications Medication Instructions Recorded Confirmed Cholecalciferol (D-3) [Vitamin D] 1,000 unit PO DAILY #0 05/13/15 08/11/16 Omeprazole [PriLOSEC] 40 mg PO BID 05/13/15 08/11/16 TraMADol [Ultram] 100 mg PO QID 05/13/15 08/11/16 Albuterol Sulfate [Proair Hfa] 1 - 2 puff IH TID PRN 08/11/16 08/11/16 Aspirin [Lo-Dose Aspirin EC] 81 mg PO DAILY 08/11/16 08/11/16 Divalproex (12 HR) [Depakote (12 500 mg PO BID 08/11/16 08/11/16 HR)] Furosemide [Lasix] 20 mg PO BID 08/11/16 08/11/16 Metoprolol [Lopressor] 50 mg PO BID 08/11/16 08/11/16 Potassium Chloride [K-Tab ER] 20 meq PO BID 08/11/16 08/11/16 Sennosides/Docusate Sodium 1 tab PO BID PRN 08/11/16 08/11/16 [Senna-S Tablet] Simvastatin [Zocor] 40 mg PO HS 08/11/16 08/11/16 risperiDONE [RisperDAL] 0.25 mg PO HS 08/11/16 08/11/16 Previous Rx's Medication Instructions Recorded Allopurinol [Zyloprim] 100 mg PO DAILY tablet 05/23/15 Levofloxacin [Levaquin] 500 mg PO DAILY #5 tablet 08/14/16 Allergies Allergy/AdvReac Type Severity Reaction Status Date / Time Penicillins Allergy Mild Hives Verified 03/09/15 09:43 moxifloxacin Allergy Hives Verified 03/09/15 09:43 etodolac AdvReac Nausea Verified 03/09/15 09:43 Constitutional: Denies: fever Cardiovascular: Denies: chest pain, palpitations Respiratory: Denies: cough, dyspnea, wheezes Gastrointestinal: Reports: abdominal pain. Denies: nausea, vomiting, diarrhea, constipation, hematemesis, melena, hematochezia Genitourinary: Denies: urgency, dysuria Musculoskeletal: Denies: back pain, neck pain Neurological: Denies: headache, weakness, numbness Past Medical History - Past Medical History Medical history: Reports: COPD, diabetes, GERD, hyperlipidemia, hypertension, osteoporosis, renal disease, other Surgical history: Reports: knee replacement, other Psychiatric history: Reports: anxiety, bipolar, depression, other - Social History Smoking Status: Never smoker Smokeless Tobacco Status: No Alcohol use: Reports: none Drug use: Reports: none Physical Exam - General Limitations: no limitations General appearance: alert Course Vital Signs Temperature 98.7 F 11/02/17 17:19 Pulse Rate 94 11/02/17 17:19 Respiratory Rate 16 11/02/17 17:19 Blood Pressure 126/111 11/02/17 17:19 O2 Sat by Pulse Oximetry 95 11/02/17 17:19 Temperature 98.7 F 11/02/17 17:19 Pulse Rate 94 11/02/17 17:19 Respiratory Rate 16 11/02/17 17:19 Blood Pressure 126/111 11/02/17 17:19 O2 Sat by Pulse Oximetry 98 11/02/17 17:41 Oxygen Delivery Oxygen Delivery Room Air Medical Decision Making - Lab Data Result diagrams: 11/02/17 17:56 11/02/17 17:56 Lab Results 11/02/17 11/02/17 11/02/17 Range/Units 17:56 17:56 17:56 WBC 6.4 (4.3-11.1) K/mcL RBC 3.89 L (4.19-5.50) M/mcL Hgb 11.4 L (12.9-16.9) g/dL Hct 36.6 L (37.5-50.1) % MCV 94.1 (83.0-100.0) fL MCH 29.3 (28.0-33.3) pg MCHC 31.1 L (31.6-35.5) g/dL RDW 14.6 H (11.5-14.5) % Plt Count 253 (140-400) K/mcL MPV 9.4 (9.4-12.4) fL Immature Gran % 0.6 (0-4) % Seg Neutrophils % 48.7 % Lymphocytes % 32.3 % Monocytes % 14.0 % Eosinophils % 3.9 % Basophils % 0.5 % Neutrophils # 3.1 (1.6-8.9) K/mcL Lymphocytes # 2.1 (0.6-4.6) K/mcL Monocytes # 0.9 (0.0-1.3) K/mcL Eosinophils # 0.3 (0.0-0.6) K/mcL Basophils # 0.0 (0.0-0.2) K/mcL PT 12.5 H (9.4-12.1) Seconds INR 1.2 APTT 31.0 (26.0-36.0) Seconds Sodium 135 L (136-145) mEq/L Potassium 4.3 (3.5-5.1) mEq/L Chloride 99 (98-107) mEq/L Carbon Dioxide 25 (23-29) mEq/L BUN 25 H (8-23) mg/dL Creatinine 1.55 H (0.70-1.30) mg/dL Est GFR ( Amer) 54 L (> 60) Est GFR (Non-Af Amer) 45 L (> 60) BUN/Creatinine Ratio 16 (6-26) Glucose 115 H (70-105) mg/dL Calculated Osmolality 285 (280-300) Calcium 9.2 (8.6-10.3) mg/dL Phosphorus 4.3 (2.7-4.5) mg/dL Magnesium 2.2 (1.6-2.6) mg/dL Total Bilirubin 0.6 (0.3-1.0) mg/dL Direct Bilirubin 0.3 H (0.0-0.2) mg/dL Indirect Bilirubin 0.3 (0.0-1.2) mg/dL AST 15 (13-39) Units/L ALT 8 (7-52) Units/L Alkaline Phosphatase 54 (34-104) Units/L Ammonia (16-53) mcmol/L Troponin I < 0.03 (< 0.04) ng/mL Serum Total Protein 8.3 (6.4-8.9) g/dL Albumin 3.4 L (3.5-5.7) g/dL Globulin 4.9 H (2.4-3.5) g/dL Albumin/Globulin Ratio 0.7 L (1.1-2.2) Urine Color (Yellow) Urine Clarity (Clear) Urine pH (5.0-8.0) pH Units Ur Specific [place] (1.010-1.025) Urine Protein (Neg-Trace) mg/dL Urine Glucose (UA) (Normal) mg/dL Urine Ketones (Negative) mg/dL Urine Blood (Negative) Urine Nitrite (Negative) Urine Bilirubin (Negative) Urine Urobilinogen (Normal) mg/dL Ur Leukocyte Esterase (Negative) Urine Microscopic RBC (0-3) per hpf Urine Microscopic WBC (0-3) per hpf Ur Squamous Epith Cells (None-Few) per lpf Urine Bacteria (None-Few) per hpf Hyaline Casts (None-Few) per lpf Ur Culture Indicated? (NO) 11/02/17 11/02/17 Range/Units 17:56 18:27 WBC (4.3-11.1) K/mcL RBC (4.19-5.50) M/mcL Hgb (12.9-16.9) g/dL Hct (37.5-50.1) % MCV (83.0-100.0) fL MCH (28.0-33.3) pg MCHC (31.6-35.5) g/dL RDW (11.5-14.5) % Plt Count (140-400) K/mcL MPV (9.4-12.4) fL Immature Gran % (0-4) % Seg Neutrophils % % Lymphocytes % % Monocytes % % Eosinophils % % Basophils % % Neutrophils # (1.6-8.9) K/mcL Lymphocytes # (0.6-4.6) K/mcL Monocytes # (0.0-1.3) K/mcL Eosinophils # (0.0-0.6) K/mcL Basophils # (0.0-0.2) K/mcL PT (9.4-12.1) Seconds INR APTT (26.0-36.0) Seconds Sodium (136-145) mEq/L Potassium (3.5-5.1) mEq/L Chloride (98-107) mEq/L Carbon Dioxide (23-29) mEq/L BUN (8-23) mg/dL Creatinine (0.70-1.30) mg/dL Est GFR ( Amer) (> 60) Est GFR (Non-Af Amer) (> 60) BUN/Creatinine Ratio (6-26) Glucose (70-105) mg/dL Calculated Osmolality (280-300) Calcium (8.6-10.3) mg/dL Phosphorus (2.7-4.5) mg/dL Magnesium (1.6-2.6) mg/dL Total Bilirubin (0.3-1.0) mg/dL Direct Bilirubin (0.0-0.2) mg/dL Indirect Bilirubin (0.0-1.2) mg/dL AST (13-39) Units/L ALT (7-52) Units/L Alkaline Phosphatase (34-104) Units/L Ammonia 23 (16-53) mcmol/L Troponin I (< 0.04) ng/mL Serum Total Protein (6.4-8.9) g/dL Albumin (3.5-5.7) g/dL Globulin (2.4-3.5) g/dL Albumin/Globulin Ratio (1.1-2.2) Urine Color Dark Yellow (Yellow) Urine Clarity Clear (Clear) Urine pH 6.0 (5.0-8.0) pH Units Ur Specific [place] 1.025 (1.010-1.025) Urine Protein Trace (Neg-Trace) mg/dL Urine Glucose (UA) Normal (Normal) mg/dL Urine Ketones Trace H (Negative) mg/dL Urine Blood Moderate H (Negative) Urine Nitrite Negative (Negative) Urine Bilirubin Small H (Negative) Urine Urobilinogen Normal (Normal) mg/dL Ur Leukocyte Esterase Small H (Negative) Urine Microscopic RBC 3-5 H (0-3) per hpf Urine Microscopic WBC 3-5 H (0-3) per hpf Ur Squamous Epith Cells Moderate H (None-Few) per lpf Urine Bacteria None Seen (None-Few) per hpf Hyaline Casts Few (None-Few) per lpf Ur Culture Indicated? YES A (NO) Attestation Statement - Attestation Attestation: I, Johnathon Chavez DO, examined this patient [id number] and my medical decision-making was reviewed with Dr. Gilberto Palafox, Resident Physician. I agree with the documented findings, disposition and treatment plan as described except to the extent set forth below. Please see my progress notes for details. 72-year-old male presents by EMS for evaluation of altered mentation. Patient was found by EMS to be decreased responsiveness on arrival. Patient is maintaining his airway and had stable vital signs. The workup evaluation and treatment during transport by EMS showed stable vital signs and Accu-Chek 117. They found the patient he was slightly on responsive but then started to come around afterwards. Patient does not have a history of seizures. He does have a remote history of cardiac arrhythmia. Currently denying any symptoms of this time of arrival the emergency room. He is alert she is oriented he speaks in full sentences. He has no facial asymmetry or neurologic deficits at this time. He does have a slight tremor. He denies any medication ingestion or other symptoms leading up to the events here today. Patient does not remember anything directly after the so-called syncopal/confused event. Patient did not have any specific preceding symptoms for what he can remember. He has never done anything like this before. Patient was CT of the head chest x-ray EKG labs including CBC chemistry urinalysis urine drug screen liver function testing along with magnesium and phosphorus. Also CT imaging of the abdomen. Urinalysis will be addressed. Concern is noted for cardiac arrhythmia causing the symptoms of this time. Patient does have visible anisocoria to the eyes the right pupil does not constrict at this time. Patient says that this is chronic. He actually explained and discussed the findings prior to us even asking about a. Patient otherwise has a negative physical exams including clear lungs irregular heart abdomen is soft. He has no visible signs of neurologic deficit or symptoms at this point. Cerebellar function is intact. Patient will have workup completed this time. See detailed documentation of the physical exam, medical intervention, medical decision-making and disposition in the resident physician's note. No critical care provider this patient's treatment course at this time 1944 Patient found to have a looks like aspiration pneumonia with syncopal event. Otherwise his laboratory workup and evaluation are unremarkable. Patient will be admitted for further evaluation of the syncope and treatment of the pneumonia. Patient does have a penicillin and fluoroquinolone allergy. He will be started on vancomycin and Azactam. Patient otherwise clinically stable. Admission process will be completed at this time.
[2017-11-02 18:09] LABS: Basophils % 0.5 %; Eosinophils # 0.3 K/mcL (0.0-0.6); Eosinophils % 3.9 %; Hematocrit 36.6 % (37.5-50.1); Hemoglobin 11.4 g/dL (12.9-16.9); Immature Granulocytes % 0.6 % (0-4); Lymphocytes # 2.1 K/mcL (0.6-4.6); Lymphocytes % 32.3 %; Mean Corpuscular HGB Conc 31.1 g/dL (31.6-35.5); Mean Corpuscular Hemoglobin 29.3 pg (28.0-33.3); Mean Corpuscular Volume 94.1 fL (83.0-100.0); Mean Platelet Volume 9.4 fL (9.4-12.4); Monocytes # 0.9 K/mcL (0.0-1.3); Neutrophils # 3.1 K/mcL (1.6-8.9); Platelet Count 253 K/mcL (140-400); Red Blood Count 3.89 M/mcL (4.19-5.50); Red Cell Distribution Width 14.6 % (11.5-14.5); Segmented Neutrophils % 48.7 %
[2017-11-02 18:16] LABS: INR 1.2; Prothrombin Time 12.5 Seconds (9.4-12.1)
[2017-11-02 18:32] LABS: Alanine Aminotransferase 8 Units/L (7-52); Albumin 3.4 g/dL (3.5-5.7); Albumin/Globulin Ratio 0.7 (1.1-2.2); Alkaline Phosphatase 54 Units/L (34-104); Aspartate Amino Transferase 15 Units/L (13-39); BUN/Creatinine Ratio 16 (6-26); Bilirubin,Direct 0.3 mg/dL (0.0-0.2); Bilirubin,Indirect 0.3 mg/dL (0.0-1.2); Bilirubin,Total 0.6 mg/dL (0.3-1.0); Blood Urea Nitrogen 25 mg/dL (8-23); Calcium 9.2 mg/dL (8.6-10.3); Carbon Dioxide 25 mEq/L (23-29); Chloride 99 mEq/L (98-107); Globulin 4.9 g/dL (2.4-3.5); Glucose 115 mg/dL (70-105); Magnesium 2.2 mg/dL (1.6-2.6); Osmolality,Calculated 285 (280-300); Phosphorous 4.3 mg/dL (2.7-4.5); Potassium 4.3 mEq/L (3.5-5.1); Sodium 135 mEq/L (136-145); Total Protein 8.3 g/dL (6.4-8.9); Troponin I < 0.03 ng/mL (< 0.04); eGFR For African Americans 54 (> 60); eGFR For Non-African Americans 45 (> 60)
[2017-11-02 19:04] LABS: Bilirubin,Urine Small (Negative); Blood,Urine Moderate (Negative); Clarity,Urine Clear (Clear); Color,Urine Dark Yellow (Yellow); Glucose,Urine (UA) Normal (Normal); Ketones,Urine Trace mg/dL (Negative); Leukocyte Esterase,Urine Small (Negative); Nitrite,Urine Negative (Negative); Protein,Urine Trace mg/dL (Neg-Trace); Specific Gravity,Urine 1.025 (1.010-1.025); Urobilinogen,Urine Normal (Normal)
[2017-11-02 19:08] LABS: Bacteria,Urine None Seen per hpf (None-Few); Squamous Epithelial Cell,Urine Moderate per lpf (None-Few)
[2017-11-02] MEDS ORDERED: Aztreonam 2,000 MG in Water for inj. (sterile) 20 ML 20 ML IVPB STA (19:41)
[2017-11-02 19:46] LABS: Hyaline Casts,Urine Few per lpf (None-Few)
[2017-11-02] MEDS ORDERED: Acetaminophen 325 MG TABLET PO PRN (22:42)
[2017-11-02] MEDS ORDERED: Naloxone 0.4 MG/ML INJ IVP PRN (22:42)
[2017-11-02] MEDS ORDERED: traMADol 50 MG TABLET PO PRN (22:46)
[2017-11-02] MEDS ORDERED: Ipratropium/Albuterol Neb 3 ML IH PRN (22:46)
--- NOTE | 2017-11-02 23:48 | Internal Med History&Physical ---
Date of Encounter: 11/02/17 Time of Encounter: 21:00 Assessment and Plan (1) Community acquired pneumonia Current visit: Yes Status: Acute Patient has cough with rivas sputum. CT abdomen shows right middle lobe pneumonia. Patient denies a recent hospitalization. Consider Commit acquired pneumonia. - Patient has multiple medication allergies. ER started with aztreonam. We will continue antibiotic aztreonam. Qualifiers: Laterality: right Lung location: middle lobe of lung Qualified Code(s): J18.1 - Lobar pneumonia, unspecified organism (2) Syncope Current visit: Yes Status: Acute Etiology is undetermined. Head CT is unremarkable. - Continuous cardiac monitoring to rule out arrhythmia - Echocardiogram and duplex carotid - Orthostatic vitals Qualifiers: Syncope type: unspecified Qualified Code(s): R55 - Syncope and collapse (3) DVT prophylaxis Current visit: No Status: Acute Heparin subcutaneously (4) Urinary tract infection Current visit: No Status: Acute Patient is on aztreonam. Follow-up urine culture Qualifiers: Urinary tract infection type: site unspecified Hematuria presence: without hematuria Qualified Code(s): N39.0 - Urinary tract infection, site not specified (5) Bipolar disorder Current visit: No Status: Chronic Continue home medications Qualifiers: Active/Remission status: currently active Current bipolar episode type: depressed Current episode severity: unspecified Qualified Code(s): F31.30 - Bipolar disorder, current episode depressed, mild or moderate severity, unspecified Internal Medicine - H&P: HPI Chief complaint: Syncope Admitted From: Home Plans for Post Hospital Care: Home History of present illness: Mr. Walker is a 72 year old male with history of hypertension, bipolar disorder, presented to ER for syncope. Patient said he was found nonresponsive this evening by caregiver. Patient denies injury. Patient denies confusion, urinary /fecal incontinence after syncope. Patient denies headache or lightheaded. Patient has a cough on and off for about 2 months. He has a mild shortness of breath and nausea. Patient denies chest pain but does have chest wall pain due to cough. In the emergency room, CT head unremarkable, CT abd reveal Rt middle lobe pneumonia. UA shows UTI but pt is asymptomatic. Pt was admitted for syncope and pneumonia. I have discussed the with patient regarding CODE STATUS. Patient is AAO 3. He clearly told me he does not want CPR if cardiac arrest happens but accept intubation if necessary. DNR CCA order placed. Past Med Surg Social Fam HX - Past Medical History Medical history: COPD, diabetes, GERD, hyperlipidemia, hypertension, osteoporosis, renal disease, other Psychiatric history: anxiety, bipolar, depression, other - Past Surgical History Surgical History: knee replacement, other - Social History Smoking Status: Never smoker Smokeless Tobacco Status: No Alcohol use: none Drug use: none - Family History Mother History Unknown: Yes Internal Medicine - H&P: Meds Cholecalciferol (D-3) [Vitamin D] 2,000 unit PO DAILY #0 05/13/15 [History] TraMADol [Ultram] 50 mg PO QID PRN 05/13/15 [History] Allopurinol [Zyloprim] 100 mg PO DAILY tablet 05/23/15 [Rx] Albuterol Sulfate [Proair Hfa] 2 puff IH TID PRN 08/11/16 [History] Aspirin [Lo-Dose Aspirin EC] 81 mg PO DAILY 08/11/16 [History] Furosemide [Lasix] 20 mg PO BID 08/11/16 [History] Metoprolol [Lopressor] 50 mg PO BID 08/11/16 [History] Potassium Chloride [K-Tab ER] 20 meq PO BID 08/11/16 [History] Sennosides/Docusate Sodium [Senna-S Tablet] 1 tab PO BID 08/11/16 [History] Simvastatin [Zocor] 40 mg PO HS 08/11/16 [History] risperiDONE [RisperDAL] 0.25 mg PO HS 08/11/16 [History] Acetaminophen [Tylenol] 975 mg PO TID PRN 11/02/17 [History] Ammonium Lactate [Lac-Hydrin Five] 1 appl TP BID 11/02/17 [History] Benztropine [Cogentin] 1 mg PO BID 11/02/17 [History] Divalproex (24 HR) [Depakote ER (24 HR)] 500 mg PO BID 11/02/17 [History] Ipratropium/Albuterol Neb [Duoneb] 3 ml IH QID PRN 11/02/17 [History] Omeprazole [PriLOSEC] 40 mg PO DAILY 11/02/17 [History] Polyethylene Glycol 3350 [MiraLAX] 17 gm PO DAILY 11/02/17 [History] Propylene Glycol/Peg 400 [Systane 0.3-0.4% Eye Drops] 1 drop BOTH EYES TID 11/02 [History] 3 Allergy/AdvReac Type Severity Reaction Status Date / Time Penicillins Allergy Mild Hives Verified 03/09/15 09:43 moxifloxacin Allergy Hives Verified 03/09/15 09:43 etodolac AdvReac Nausea Verified 03/09/15 09:43 All Systems PM: A 10-system review of systems was performed and is negative for pertinent findings except as documented above in the HPI. - Constitutional Vitals: Temp Pulse Resp BP Pulse Ox 97.7 F 99 17 128/77 98 11/02/17 23:16 11/02/17 23:16 11/02/17 23:16 11/02/17 23:16 11/02/17 23:16 General appearance: Present: A&O X 3, pleasant, no acute distress, answers questions appropriately - Head Head exam: Present: atraumatic, normocephalic - Eye Eye exam: Present: PERRL, conjuntiva pink, sclera anicteric Pupils: Present: PERRL - Neck Neck exam general surgery: Present: supple, trachea midline. Absent: lymphadenopathy - Respiratory Respiratory exam: Present: CTAB. Absent: accessory muscle use, rales, rhonchi, wheezes - Cardiovascular Cardiovascular exam: Present: RRR, +S1, +S2. Absent: diastolic murmur, gallop, rubs, systolic murmur - GI/Abdominal GI/Abdominal exam: Present: normal bowel sounds, soft, no peritoneal signs. Absent: distended, tenderness - Extremities Exam Extremities exam: Present: warm, radial pulses palpable and symmetrical. Absent : calf tenderness, cyanotic, pedal edema - Neurological Exam Neurological exam: Present: CN II-XII intact, oriented X3, no focal deficits. Absent: pronater drift, facial droop, speech deficit - Skin Skin exam: Present: dry, intact Internal Med - H&P Results - Labs CBC & Chem 7: 11/02/17 17:56 11/02/17 17:56 - EKG Data -: EKG Interpreted by Myself EKG shows normal: sinus rhythm Rate: normal
[2017-11-03] MEDS ORDERED: Aztreonam 2,000 MG in Water for inj. (sterile) 20 ML 20 ML IVP SCH (04:00)
[2017-11-03 06:02] LABS: Basophils % 0.4 %; Eosinophils # 0.3 K/mcL (0.0-0.6); Eosinophils % 5.7 %; Hematocrit 32.9 % (37.5-50.1); Hemoglobin 10.2 g/dL (12.9-16.9); Immature Granulocytes % 0.4 % (0-4); Lymphocytes # 1.1 K/mcL (0.6-4.6); Lymphocytes % 19.7 %; Mean Corpuscular Hemoglobin 28.9 pg (28.0-33.3); Mean Corpuscular Volume 93.2 fL (83.0-100.0); Mean Platelet Volume 9.4 fL (9.4-12.4); Monocytes # 0.8 K/mcL (0.0-1.3); Monocytes % 13.6 %; Neutrophils # 3.4 K/mcL (1.6-8.9); Platelet Count 265 K/mcL (140-400); Red Blood Count 3.53 M/mcL (4.19-5.50); Red Cell Distribution Width 14.2 % (11.5-14.5); Segmented Neutrophils % 60.2 %
[2017-11-03] MEDS: *HR* Heparin 5,000 UNIT/ML VIAL SQ SCH ×2 (06:06→16:18)
[2017-11-03 06:27] LABS: BUN/Creatinine Ratio 17 (6-26); Blood Urea Nitrogen 23 mg/dL (8-23); Calcium 8.9 mg/dL (8.6-10.3); Carbon Dioxide 25 mEq/L (23-29); Chloride 103 mEq/L (98-107); Glucose 126 mg/dL (70-105); Magnesium 2.3 mg/dL (1.6-2.6); Osmolality,Calculated 291 (280-300); Potassium 4.5 mEq/L (3.5-5.1); Sodium 138 mEq/L (136-145); eGFR For African Americans > 60 (> 60); eGFR For Non-African Americans 51 (> 60)
[2017-11-03] MEDS: Divalproex (12 HR) 500 MG TABLET PO SCH ×2 (08:14→22:00)
[2017-11-03] MEDS: Furosemide 20 MG TABLET PO SCH ×2 (08:15→16:18)
[2017-11-03] MEDS: Cholecalciferol (D-3) 1,000 UNIT TABLET PO SCH (08:15)
[2017-11-03] MEDS: Aspirin Enteric Coated 81 MG Tablet PO SCH (08:15)
[2017-11-03] MEDS: Sennosides/Docusate Sodium TABLET PO SCH ×2 (08:15→22:00)
[2017-11-03] MEDS: Artificial Tears SOLN 15 ML BOTTLE BOTH EYES SCH ×3 (08:25→22:00)
[2017-11-03] MEDS: Ammonium Lactate 30 APPL/225 GM BOTTLE TP SCH ×2 (08:25→22:00)
[2017-11-03] MEDS: Azithromycin 500 MG in D5% in Water 250 ML IVPB SCH (11:51)
[2017-11-03] MEDS: cefTRIAXone 1,000 MG in Water for inj. (sterile) 20 ML 10 ML IVP SCH (13:09)
--- NOTE | 2017-11-03 18:27 | Internal Med Progress Note ---
Date of Encounter: 11/03/17 Time of Encounter: 15:10 - Assessment and plan (1) Community acquired pneumonia Current Visit: Yes Status: Acute Assessment and plan: CT abdomen and pelvis showed right middle lobe pneumonia. Patient is requiring supplemental oxygen, does not normally wear supplemental oxygen at home. Patient has no leukocytosis, no fever or tachycardia. Patient is normotensive. Patient was initially started on aztreonam,, received call from pharmacy recommending patient be treated with ceftriaxone 1 g IV daily, Zithromax 500 mg IV daily. Continue oxygen as needed to maintain sats greater than 92% Continue DuoNeb nebs, albuterol inhaler Qualifiers: Laterality: right Lung location: middle lobe of lung Qualified Code(s): J18.1 - Lobar pneumonia, unspecified organism (2) DVT prophylaxis Current Visit: Yes Status: Acute Assessment and plan: Heparin subcutaneous. (3) Hypertension Current Visit: Yes Status: Chronic Assessment and plan: Orthostatic vital signs are negative. Blood pressure has been well controlled since in the hospital. Continue home medications. Qualifiers: Hypertension type: essential hypertension Qualified Code(s): I10 - Essential (primary) hypertension (4) Syncope Current Visit: Yes Status: Acute Assessment and plan: Patient reports that he did not actually have a syncopal episode, he states that he had gone to sleep and he awakened with 3 EMS people standing about him. Head CT negative for acute intracranial abnormality, there is noted chronic pansinusitis. Echo shows preserved EF, mild LV DD, mildly thickened, calcified aortic valve without stenosis, dilated aortic root measuring [address] has been ordered. Monitor for safety and falls Continue telemetry Qualifiers: Syncope type: unspecified Qualified Code(s): R55 - Syncope and collapse (5) Urinary tract infection Current Visit: Yes Status: Acute Assessment and plan: Urine culture is pending. UA indicative of UTI. Continue ceftriaxone 1 g daily and Zithromax 500 mg IV daily. Narrow antibiotic choices when sensitivities available. Qualifiers: Urinary tract infection type: site unspecified Hematuria presence: without hematuria Qualified Code(s): N39.0 - Urinary tract infection, site not specified - Time Spent With Patient less than 15 minutes - Subjective Interval history: Patient was seen and assessed the bedside at 1510. Patient is alert, awake, oriented. He states that he feels well. He reports that he lives in a residential with 14 other gentleman. He denies any headache, blurred vision, nausea, vomiting, diarrhea. He denies abdominal pain, chest pain or shortness of breath. He is aware that he will not be discharged today, will revisit discharge tomorrow. He denies any questions. - Constitutional Vitals: Temp Pulse Resp BP Pulse Ox 98.7 F 71 16 114/58 93 11/03/17 15:13 11/03/17 15:13 11/03/17 15:13 11/03/17 15:13 11/03/17 15:13 General appearance: Present: cooperative, A&O X 3, pleasant, no acute distress, obese, answers questions appropriately - Head Head exam: Present: atraumatic, normal inspection, normocephalic - Eye Eye exam: Present: conjuntiva pink, sclera anicteric - Neck Neck exam general surgery: Present: supple, trachea midline. Absent: lymphadenopathy - Respiratory Respiratory exam: Present: CTAB. Absent: accessory muscle use, rales, rhonchi, wheezes - Cardiovascular Cardiovascular exam: Present: RRR, +S1, +S2. Absent: diastolic murmur, gallop, rubs, systolic murmur - GI/Abdominal GI/Abdominal exam: Present: normal bowel sounds, soft, no peritoneal signs. Absent: distended, hepatomegaly, tenderness - Extremities Exam Extremities exam: Present: warm, radial pulses palpable and symmetrical. Absent : calf tenderness, cyanotic, pedal edema - Neurological Exam Neurological exam: Present: alert, oriented X3, no focal deficits. Absent: facial droop, speech deficit - Skin Skin exam: Present: dry, intact, warm Internal Medicine: Result - Labs CBC & Chem 7: 11/03/17 05:04 11/03/17 05:04 Labs: Short CBC 11/03/17 Range/Units 05:04 WBC 5.6 (4.3-11.1) K/mcL Hgb 10.2 L (12.9-16.9) g/dL Hct 32.9 L (37.5-50.1) % Plt Count 265 (140-400) K/mcL Neutrophils # 3.4 (1.6-8.9) K/mcL BMP 11/03/17 05:04 Sodium 138 Potassium 4.5 Chloride 103 Carbon Dioxide 25 BUN 23 Creatinine 1.38 H Glucose 126 H Calcium 8.9 - ABG Interpretation ABG results: PT/INR, D-dimer PT 12.5 Seconds (9.4-12.1) H 11/02/17 17:56 - Impressions Impressions Echocardiogram 11/03/17 22:45 Impressions: LVEF 60%. Mild left ventricular diastolic dysfunction. Normal right ventricular structure and function. Mildly thickened/calcified aortic valve. No stenosis. Dilated aortic root measuring 4.[address] imaging. Left Ventricular Wall Motion: Rest Echo Findings All wall segments showed normal motion. Findings: Study Quality * Technically adequate exam. ECG Findings * Normal sinus rhythm. Left Ventricle * LVEF 60%. * Mild left ventricular diastolic dysfunction. * Normal LV chamber size, wall thickness and function. Right Ventricle * Normal right ventricular structure and function. Left Atrium * Mildly dilated left atrium. Right Atrium * Normal right atrial size. Mitral Valve * Normal mitral valve structure. * No mitral stenosis. * No mitral regurgitation. Aortic Valve * No aortic regurgitation. * Trileaflet aortic valve. * Mildly thickened/calcified aortic valve leaflets. * No aortic stenosis. Tricuspid Valve * Tricuspid valve not well visualized. * No tricuspid regurgitation. * Estimated RA pressure is 3 mmHg. Pulmonic Valve * Pulmonic valve is not well visualized. * No pulmonic stenosis. * No pulmonic regurgitation. Pulmonary Artery * Pulmonary artery not well visualized. Aorta * Dilated aortic root measuring 4.0 cm. Pericardium * There is no pericardial effusion present. Interatrial Septum * No evidence of PFO by color Doppler. IVC * Normal IVC dimensions and inspiratory collapse. Consult Discharge Plan - Plan [facility]errals: [facility] [Primary Care Provider] -
[2017-11-03] MEDS: risperiDONE 0.25 MG TABLET PO SCH (22:00)
[2017-11-04 00:26] LABS: Adenovirus Not Detected (Not Detect); Bordetella Pertussis Not Detected (Not Detect); Chlamydophila pneumoniae Not Detected (Not Detect); Coronavirus 229E Not Detected (Not Detect); Coronavirus HKU1 Not Detected (Not Detect); Coronavirus NL63 Not Detected (Not Detect); Coronavirus OC43 Not Detected (Not Detect); Human Metapneumovirus Not Detected (Not Detect); Human Rhinovirus/Enterovirus Not Detected (Not Detect); Influenza A Subtype 2009 H1 Not Detected (Not Detect); Influenza A Untypeable Not Detected (Not Detect); Influenza B Not Detected (Not Detect); Mycoplasma pneumoniae Not Detected (Not Detect); Parainfluenza Virus 1 Not Detected (Not Detect); Parainfluenza Virus 2 Not Detected (Not Detect); Parainfluenza Virus 3 Not Detected (Not Detect); Parainfluenza Virus 4 Not Detected (Not Detect); Respiratory Syncytial Virus Not Detected (Not Detect)
[2017-11-04] MEDS: *HR* Heparin 5,000 UNIT/ML VIAL SQ SCH ×2 (06:08→16:09)
--- NOTE | 2017-11-04 06:35 | Electrocardiograph Report ---
[address] [place], [place] [address] Test Date: 2017-11-02 Pat Name: Kane Walker Department: 103 Room: 3B Gender: M Relay Dispatcher: [facility] : 1945 Requested By: Gilberto Palafox Order Number: [id number] Reading MD: Arjun Quintana Measurements Intervals [place] Rate: 83 P: 94 CA: 169 QRS: -3 QRSD: 90 T: 30 QT: 389 QTc: 429 Interpretive Statements SINUS RHYTHM Electronically Signed On 11-04-2017 6:33:37 EDT by Arjun Quintana
[2017-11-04] MEDS: Furosemide 20 MG TABLET PO SCH ×2 (08:20→16:09)
[2017-11-04] MEDS: Aspirin Enteric Coated 81 MG Tablet PO SCH (08:21)
[2017-11-04] MEDS: Artificial Tears SOLN 15 ML BOTTLE BOTH EYES SCH ×3 (08:21→21:19)
[2017-11-04] MEDS: Cholecalciferol (D-3) 1,000 UNIT TABLET PO SCH (08:21)
[2017-11-04] MEDS: Divalproex (12 HR) 500 MG TABLET PO SCH ×2 (08:21→21:22)
[2017-11-04] MEDS: Ammonium Lactate 30 APPL/225 GM BOTTLE TP SCH ×2 (08:22→21:22)
[2017-11-04] MEDS: Sennosides/Docusate Sodium TABLET PO SCH ×2 (08:23→21:22)
[2017-11-04 08:56] LABS: Basophils % 0.2 %; Eosinophils # 0.2 K/mcL (0.0-0.6); Hemoglobin 10.7 g/dL (12.9-16.9); Immature Granulocytes % 0.8 % (0-4); Lymphocytes # 0.5 K/mcL (0.6-4.6); Lymphocytes % 10.4 %; Mean Corpuscular HGB Conc 31.5 g/dL (31.6-35.5); Mean Corpuscular Hemoglobin 29.4 pg (28.0-33.3); Mean Corpuscular Volume 93.4 fL (83.0-100.0); Mean Platelet Volume 9.1 fL (9.4-12.4); Monocytes # 0.6 K/mcL (0.0-1.3); Neutrophils # 3.7 K/mcL (1.6-8.9); Platelet Count 283 K/mcL (140-400); Red Blood Count 3.64 M/mcL (4.19-5.50); Red Cell Distribution Width 14.5 % (11.5-14.5); Segmented Neutrophils % 73.6 %
[2017-11-04 09:14] LABS: BUN/Creatinine Ratio 12 (6-26); Blood Urea Nitrogen 15 mg/dL (8-23); Calcium 9.2 mg/dL (8.6-10.3); Carbon Dioxide 26 mEq/L (23-29); Chloride 106 mEq/L (98-107); Glucose 131 mg/dL (70-105); Osmolality,Calculated 291 (280-300); Sodium 139 mEq/L (136-145); eGFR For African Americans > 60 (> 60); eGFR For Non-African Americans 58 (> 60)
[2017-11-04] MEDS: Azithromycin 500 MG in D5% in Water 250 ML IVPB SCH (12:58)
[2017-11-04] MEDS: cefTRIAXone 1,000 MG in Water for inj. (sterile) 20 ML 10 ML IVP SCH (15:21)
--- NOTE | 2017-11-04 18:23 | Internal Med Progress Note ---
Date of Encounter: 11/04/17 Time of Encounter: 10:05 - Assessment and plan (1) Community acquired pneumonia Current Visit: Yes Status: Acute Assessment and plan: RML pna. Bacterial. Resolving. Patient is requiring supplemental oxygen, does not normally wear supplemental oxygen at home. Patient has no leukocytosis, no fever. Tachycardic today. Patient is normotensive. Continue ceftriaxone 1 g IV daily, Zithromax 500 mg IV daily. Continue oxygen as needed to maintain sats greater than 92% Continue DuoNeb nebs, albuterol inhaler, po Prednisone. Qualifiers: Laterality: right Lung location: middle lobe of lung Qualified Code(s): J18.1 - Lobar pneumonia, unspecified organism (2) DVT prophylaxis Current Visit: Yes Status: Acute Assessment and plan: Heparin SQ BID (3) Hypertension Current Visit: Yes Status: Chronic Assessment and plan: Blood pressure has been well controlled since in the hospital. Continue home medications. Hydralazine 10mg IV q6h prn SBP > 180mmHg. Qualifiers: Hypertension type: essential hypertension Qualified Code(s): I10 - Essential (primary) hypertension (4) Syncope Current Visit: Yes Status: Acute Assessment and plan: Resolved. Pt denies presyncope or syncope. Likely caused by hypoxia secondary to COPD/Pna Monitor for safety and falls Continue telemetry Qualifiers: Syncope type: unspecified Qualified Code(s): R55 - Syncope and collapse (5) Urinary tract infection Current Visit: Yes Status: Ruled-out Assessment and plan: Urine culture negative. Continue ceftriaxone 1 g daily and Zithromax 500 mg IV daily for pna Qualifiers: Urinary tract infection type: site unspecified Hematuria presence: without hematuria Qualified Code(s): N39.0 - Urinary tract infection, site not specified - Time Spent With Patient less than 15 minutes - Subjective Interval history: Patient was seen and assessed the bedside at 1005. Patient is drowsy, arouses easily to verbal. He states that he feels well. He denies any headache, blurred vision, nausea, vomiting, diarrhea. He denies abdominal pain, chest pain or shortness of breath. Pt states that he is feeling kind of weak and needs another day of IV antibiotics and breathing treatments. - Constitutional Vitals: Temp Pulse Resp BP Pulse Ox 99.4 F 87 16 128/78 94 11/04/17 15:00 11/04/17 15:00 11/04/17 15:00 11/04/17 15:00 11/04/17 15:00 General appearance: Present: cooperative, A&O X 3, pleasant, no acute distress, obese, answers questions appropriately - Head Head exam: Present: atraumatic, normal inspection, normocephalic - Eye Eye exam: Present: normal appearance, conjuntiva pink, sclera anicteric - Neck Neck exam general surgery: Present: normal inspection, supple, trachea midline - Respiratory Respiratory exam: Present: CTAB. Absent: accessory muscle use, chest wall tenderness, rales, rhonchi, wheezes - Cardiovascular Cardiovascular exam: Present: RRR, +S1, +S2. Absent: diastolic murmur, gallop, rubs, systolic murmur - GI/Abdominal GI/Abdominal exam: Present: normal bowel sounds, soft. Absent: distended, hepatomegaly, tenderness - Extremities Exam Extremities exam: Present: normal capillary refill, normal inspection, warm, radial pulses palpable and symmetrical. Absent: calf tenderness, cyanotic, pedal edema, tenderness - Neurological Exam Neurological exam: Present: alert, oriented X3, no focal deficits. Absent: facial droop, speech deficit - Skin Skin exam: Present: dry, intact, normal color, warm. Absent: rash Internal Medicine: Result - Labs CBC & Chem 7: 11/04/17 08:35 11/04/17 08:35 Labs: Short CBC 11/04/17 Range/Units 08:35 WBC 5.0 (4.3-11.1) K/mcL Hgb 10.7 L (12.9-16.9) g/dL Hct 34.0 L (37.5-50.1) % Plt Count 283 (140-400) K/mcL Neutrophils # 3.7 (1.6-8.9) K/mcL BMP 11/04/17 08:35 Sodium 139 Potassium 4.0 Chloride 106 Carbon Dioxide 26 BUN 15 Creatinine 1.23 Glucose 131 H Calcium 9.2 - ABG Interpretation ABG results: PT/INR, D-dimer PT 12.5 Seconds (9.4-12.1) H 11/02/17 17:56 - Impressions Impressions Chest CTA 11/03/17 18:35 IMPRESSION: 1. Borderline ectatic ascending thoracic aortic root measuring approximately 4 cm in diameter. Mild thoracic aortic atherosclerotic vascular plaquing. No dissection. 2. Ground-glass and early consolidative opacities in the posterior aspect of the right middle lobe compatible with pneumonia. Small ill-defined nodular opacities in the right middle and upper lobes. Findings are compatible with pneumonia. Recommend follow-up to resolution. 3. Segmental bronchus secretions and mild irregular depending consolidation in the left lower lobe compatible with pneumonia versus atelectasis. D/ / Chapin Garcia MD / Chapin Garcia MD Interpreting Provider: Chapin Garcia MD Consult Discharge Plan - Plan Referrals: [facility] [Primary Care Provider] -
[2017-11-04] MEDS: risperiDONE 0.25 MG TABLET PO SCH (21:21)
[2017-11-05 05:36] LABS: Basophils % 0.2 %; Eosinophils # 0.3 K/mcL (0.0-0.6); Eosinophils % 3.2 %; Hematocrit 34.6 % (37.5-50.1); Hemoglobin 10.7 g/dL (12.9-16.9); Immature Granulocytes % 0.4 % (0-4); Lymphocytes # 0.8 K/mcL (0.6-4.6); Lymphocytes % 9.6 %; Mean Corpuscular HGB Conc 30.9 g/dL (31.6-35.5); Mean Corpuscular Hemoglobin 29.2 pg (28.0-33.3); Mean Corpuscular Volume 94.3 fL (83.0-100.0); Mean Platelet Volume 9.2 fL (9.4-12.4); Monocytes # 1.1 K/mcL (0.0-1.3); Monocytes % 12.9 %; Neutrophils # 6.1 K/mcL (1.6-8.9); Nucleated Red Blood Cells 0.2 /100 WBC (0); Platelet Count 310 K/mcL (140-400); Red Blood Count 3.67 M/mcL (4.19-5.50); Red Cell Distribution Width 14.6 % (11.5-14.5); Segmented Neutrophils % 73.7 %
[2017-11-05] MEDS: *HR* Heparin 5,000 UNIT/ML VIAL SQ SCH (06:03)
[2017-11-05 06:41] LABS: BUN/Creatinine Ratio 11 (6-26); Blood Urea Nitrogen 14 mg/dL (8-23); Carbon Dioxide 25 mEq/L (23-29); Chloride 104 mEq/L (98-107); Glucose 109 mg/dL (70-105); Osmolality,Calculated 291 (280-300); Potassium 4.2 mEq/L (3.5-5.1); Sodium 140 mEq/L (136-145); eGFR For African Americans > 60 (> 60); eGFR For Non-African Americans 55 (> 60)
[2017-11-05] MEDS: Divalproex (12 HR) 500 MG TABLET PO SCH (10:23)
[2017-11-05] MEDS: Artificial Tears SOLN 15 ML BOTTLE BOTH EYES SCH (10:30)
[2017-11-05] MEDS: Furosemide 20 MG TABLET PO SCH (10:30)
[2017-11-05] MEDS: Aspirin Enteric Coated 81 MG Tablet PO SCH (10:30)
[2017-11-05] MEDS: Cholecalciferol (D-3) 1,000 UNIT TABLET PO SCH (10:31)
[2017-11-05] MEDS: Sennosides/Docusate Sodium TABLET PO SCH (10:31)
[2017-11-05] MEDS: Ammonium Lactate 30 APPL/225 GM BOTTLE TP SCH (10:36)
[2017-11-05 15:02] VITALS: BP 124/76
--- NOTE | 2017-11-05 15:45 | Discharge Summary ---
- NOTES TO OUTPATIENT PROVIDER Notes to Outpatient Provider: Pt treated for CAP, sent home with Omnicef x 5 days. Pt has 4m ascending thoracic root dilation. Pt is asymtpomatic. Will need follow up CTA chest in a year for reevaluation. Orders not resulted at time of discharge: Pending orders 11/02/17 23:55 Sputum Culture [Culture,Sputum with Gram Stain] [] Stat Date of Encounter: 11/05/17 Time of Encounter: 09:30 - Discharge Diagnosis (1) Community acquired pneumonia Priority: Primary Status: Acute Comments: Patient states he is feeling better. Lungs are clear and diminished. He is no longer requiring supplemental oxygen. Pt will be sent home with Omnicef 300mg po bid x 4 days. Qualifiers: Laterality: right Lung location: middle lobe of lung Qualified Code(s): J18.1 - Lobar pneumonia, unspecified organism (2) DVT prophylaxis Priority: Secondary Status: Acute Comments: Heparin (3) Hypertension Priority: Secondary Status: Chronic Comments: Chronic. Well controlled. Continue home medications. Qualifiers: Hypertension type: essential hypertension Qualified Code(s): I10 - Essential (primary) hypertension (4) Syncope Priority: Secondary Status: Acute Comments: Resolved. Pt denies syncope or presyncope symptoms. Likely secondary to hypoxia from COPD/Pna. Carotid dopplers, Right ICA has moderate 40-59% stenosis and left carotid system has non stenotic plaque. Echo shows LVEF 60% with mild LV DD mildly thickened/calcified aortic valve, no stenosis. Dilated aortic root measuring 4.0 Cm, CT shows the same. I spoke with Dr. Garner by phone who states that pt should follow up for repeat CT in a year, no emergent need for treatment at this time. Qualifiers: Syncope type: unspecified Qualified Code(s): R55 - Syncope and collapse (5) Urinary tract infection Priority: Secondary Status: Ruled-out Comments: No UTI, culture negative. Qualifiers: Urinary tract infection type: site unspecified Hematuria presence: without hematuria Qualified Code(s): N39.0 - Urinary tract infection, site not specified Hospital course: Mr. Walker is a 72 year old male with PMH of seizures, DM, HTN, HLD, chronic pain of right knee, anemia, bipolar disorder, Obesity. Pt presented to the ed with c/ o syncope. Patient reports he was found unresponsive, awakens around the by EMS people. Patient states that he was sleeping and he was not syncopal at all. She reports cough on and off for 2 months, mild shortness of breath and nausea for 3-4 days. He was admitted for UTI and right middle lobe pneumonia. Head CT was negative, CT abdomen shows right middle lobe pneumonia. UA was indicated for UTI, is culture was negative. He was treated with Rocephin and Zithromax which would cover both the pneumonia and UTI. Echocardiogram preserved EF, mild LV DD, aortic valve dysfunction without stenosis. Chest CTA done to evaluate aortic root dilation. Both echo and CT showed 4 cm dilation. He will need to follow up with vascular in a year for reimaging. Carotid Dopplers were unremarkable. Patient reports that he is ready to go home. He has been weaned from oxygen. He will be sent home with oral antibiotics, steroid taper. Labs and vitals are stable and within normal limits. Patient is appropriate for discharge. Discharge discussed with: family - Time Spent with Patient Total time spent providing and/or coordinating discharge services: Less than 30 minutes - Discharge Medications Prescriptions: Cefdinir [Omnicef] 300 mg PO BID #8 capsule Home Medications: Cholecalciferol (D-3) [Vitamin D] 2,000 unit PO DAILY #0 05/13/15 [History] TraMADol [Ultram] 50 mg PO QID PRN 05/13/15 [History] Allopurinol [Zyloprim] 100 mg PO DAILY tablet 05/23/15 [Rx] Albuterol Sulfate [Proair Hfa] 2 puff IH TID PRN 08/11/16 [History] Aspirin [Lo-Dose Aspirin EC] 81 mg PO DAILY 08/11/16 [History] Furosemide [Lasix] 20 mg PO BID 08/11/16 [History] Metoprolol [Lopressor] 50 mg PO BID 08/11/16 [History] Potassium Chloride [K-Tab ER] 20 meq PO BID 08/11/16 [History] Sennosides/Docusate Sodium [Senna-S Tablet] 1 tab PO BID 08/11/16 [History] Simvastatin [Zocor] 40 mg PO HS 08/11/16 [History] risperiDONE [RisperDAL] 0.25 mg PO HS 08/11/16 [History] Acetaminophen [Tylenol] 975 mg PO TID PRN 11/02/17 [History] Ammonium Lactate [Lac-Hydrin Five] 1 appl TP BID 11/02/17 [History] Benztropine [Cogentin] 1 mg PO BID 11/02/17 [History] Divalproex (24 HR) [Depakote ER (24 HR)] 500 mg PO BID 11/02/17 [History] Ipratropium/Albuterol Neb [Duoneb] 3 ml IH QID PRN 11/02/17 [History] Omeprazole [PriLOSEC] 40 mg PO DAILY 11/02/17 [History] Polyethylene Glycol 3350 [MiraLAX] 17 gm PO DAILY 11/02/17 [History] Propylene Glycol/Peg 400 [Systane 0.3-0.4% Eye Drops] 1 drop BOTH EYES TID 11/02 [History] Cefdinir [Omnicef] 300 mg PO BID #8 capsule 11/05/17 [Rx] Allergies/Adverse Reactions: 3 Allergy/AdvReac Type Severity Reaction Status Date / Time Penicillins Allergy Mild Hives Verified 03/09/15 09:43 moxifloxacin Allergy Hives Verified 03/09/15 09:43 etodolac AdvReac Nausea Verified 03/09/15 09:43 Date of admission: 11/02/17 22:42 Primary care physician: [facility] Discharging clinician: Sahara Drake Anticipated date of discharge: 11/05/17 - Constitutional Vitals: Temp Pulse Resp BP Pulse Ox 99.4 F 95 14 124/76 92 11/05/17 15:00 11/05/17 15:00 11/05/17 15:00 11/05/17 15:00 11/05/17 15:00 General appearance: Present: cooperative, A&O X 3, pleasant, no acute distress, obese, answers questions appropriately - Head Head exam: Present: atraumatic, normal inspection, normocephalic - Eye Eye exam: Present: normal appearance, conjuntiva pink, sclera anicteric - Neck Neck exam general surgery: Present: normal inspection, supple, trachea midline. Absent: lymphadenopathy - Respiratory Respiratory exam: Present: decreased breath sounds, CTAB. Absent: accessory muscle use, chest wall tenderness, rales, rhonchi, wheezes - Cardiovascular Cardiovascular exam: Present: RRR, +S1, +S2. Absent: diastolic murmur, gallop, rubs, systolic murmur - GI/Abdominal GI/Abdominal exam: Present: normal bowel sounds, soft. Absent: distended, hepatomegaly, tenderness - Extremities Exam Extremities exam: Present: normal capillary refill, normal inspection, warm, radial pulses palpable and symmetrical. Absent: calf tenderness, cyanotic, pedal edema, tenderness - Neurological Exam Neurological exam: Present: alert, oriented X3, no focal deficits. Absent: facial droop, speech deficit - Skin Skin exam: Present: dry, intact, normal color, warm. Absent: rash - Patient Status Disposition: Home, Self-Care Condition: Good Functional capacity at discharge: independent ambulation Overall status at discharge: patient is back to baseline - Discharge Instructions Follow [facility] With: [facility] [Primary Care Provider[facility] - Additional Instructions: Please follow up with your PCP within the next 7-10 days. Return to the ER as needed for any other problems or concerns, or if your symptoms return or worsen. Take your medications as directed. Return to your normal activities and medications as directed. Resume your normal diet as tolerated. - Diet and Activity Activity: increase activity as tolerated, resume usual activities as tolerated Diet: low fat, low cholesterol
[2017-11-05] MEDS ORDERED: Cefdinir 300 MG CAPSULE PO SCH (16:00)
[2017-11-05] MEDS: Azithromycin 500 MG in D5% in Water 250 ML IVPB SCH (16:57)
[2017-11-05] MEDS: cefTRIAXone 1,000 MG in Water for inj. (sterile) 20 ML 10 ML IVP SCH (16:58)
== END 2017-11-05 19:20 | disposition home or self-care (01) | DRG 194 ==
LOC: 3BNU 17:12 → EMEROO 17:12 → 3BNU 21:20
PROVIDERS: ADMIT Internal Medicine; ATTEND Internal Medicine

== ENCOUNTER 2018-04-12 17:13 | Inpatient (IN) ==
[2018-04-12] MEDS ORDERED: Ipratropium/Albuterol Neb 3 ML IH ONE (17:24)
[2018-04-12] MEDS ORDERED: Albuterol 2.5 MG/3 ML NEBULIZER IH ONE (17:24)
[2018-04-12] MEDS ORDERED: predniSONE 20 MG TABLET PO ONE (17:24)
--- NOTE | 2018-04-12 17:27 | Emergency Department Note ---
Disposition Clinical Impression: Pneumonia Qualifiers: Pneumonia type: due to unspecified organism Laterality: bilateral Lung location : lower lobe of lung Qualified Code(s): J18.1 - Lobar pneumonia, unspecified organism Disposition: Admitted As Inpatient Condition: Fair Referrals: [facility],PCP [Primary Care Provider] - Forms: ED Satisfaction Letter Time of Disposition: 19:34 General Adult HPI - General Chief complaint: ED Fall Stated complaint: Fall Time Seen by Provider: 04/12/18 17:18 Source: patient, EMS Limitations: no limitations - History of Present Illness HPI Narrative: This is a 73-year-old male with a reported history of dementia and COPD who reportedly fell to the ground today and was unable to get up because of generalized weakness. He denies pain at time of interview. He reportedly was started on antibiotic for an alleged urinary infection within the last 2 days. Pain Scale: 0 - Related Data Home Medications Medication Instructions Recorded Confirmed Cholecalciferol (D-3) [Vitamin D] 2,000 unit PO DAILY #0 05/13/15 11/02/17 TraMADol [Ultram] 50 mg PO QID PRN 05/13/15 11/02/17 Albuterol Sulfate [Proair Hfa] 2 puff IH TID PRN 08/11/16 11/02/17 Aspirin [Lo-Dose Aspirin EC] 81 mg PO DAILY 08/11/16 11/02/17 Furosemide [Lasix] 20 mg PO BID 08/11/16 11/02/17 Metoprolol [Lopressor] 50 mg PO BID 08/11/16 11/02/17 Potassium Chloride [K-Tab ER] 20 meq PO BID 08/11/16 11/02/17 Sennosides/Docusate Sodium 1 tab PO BID 08/11/16 11/02/17 [Senna-S Tablet] Simvastatin [Zocor] 40 mg PO HS 08/11/16 11/02/17 risperiDONE [RisperDAL] 0.25 mg PO HS 08/11/16 11/02/17 Acetaminophen [Tylenol] 975 mg PO TID PRN 11/02/17 11/02/17 Ammonium Lactate [Lac-Hydrin Five] 1 appl TP BID 11/02/17 11/02/17 Benztropine [Cogentin] 1 mg PO BID 03/27/18 03/27/18 Divalproex (24 HR) [Depakote ER 500 mg PO BID 11/02/17 11/02/17 (24 HR)] Ipratropium/Albuterol Neb [Duoneb] 3 ml IH QID PRN 11/02/17 11/02/17 Omeprazole [PriLOSEC] 40 mg PO DAILY 11/02/17 11/02/17 Polyethylene Glycol 3350 [MiraLAX] 17 gm PO DAILY 11/02/17 11/02/17 Propylene Glycol/Peg 400 [Systane 1 drop BOTH EYES TID 11/02/17 11/02/17 0.3-0.4% Eye Drops] Previous Rx's Medication Instructions Recorded Allopurinol [Zyloprim] 100 mg PO DAILY tablet 05/23/15 Allergies Allergy/AdvReac Type Severity Reaction Status Date / Time Penicillins Allergy Mild Hives Verified 03/09/15 09:43 moxifloxacin Allergy Hives Verified 03/09/15 09:43 etodolac AdvReac Nausea Verified 03/09/15 09:43 Limitations: ROS unobtainable due to patients medical condition (Dementia makes review of systems very challenging.) Past Medical History - Past Medical History Medical history: Reports: COPD, dementia, diabetes, GERD, hyperlipidemia, hypertension, osteoporosis, renal disease, other Surgical history: Reports: knee replacement, other Psychiatric history: Reports: anxiety, bipolar, depression, other - Social History Smoking Status: Never smoker Smokeless Tobacco Status: No Alcohol use: Reports: none Drug use: Reports: none Physical Exam - General Limitations: age, other (Dementia) General appearance: alert - Head Head exam: atraumatic, normocephalic, normal inspection - Eye Eye exam: Present: other (Pupils are anisocoric. The left pupil is between 4 and 5 mm diameter and the right pupil is around 8 mm diameter) - Neck Neck exam: Present: normal inspection, full ROM, trachea midline - Chest Chest inspection: Present: normal inspection, symmetric chest wall rise - Respiratory Respiratory exam: Present: other (There are expiratory wheezes and coarse rhonchi in all nevarez, bases greater than apices, right greater than left.). Absent: respiratory distress, accessory muscle use - Cardiovascular Cardiovascular exam: Present: regular rate, normal rhythm, normal heart sounds - Abdominal Exam Abdominal exam: Present: soft, Non-Tender. Absent: tenderness, distention, guarding, rebound, rigidity - Extremities Exam Extremities exam: Present: normal inspection, full ROM. Absent: tenderness, pedal edema - Neurological Exam Neurological exam: Present: alert, other (There is a left lower facial weakness I believe is chronic.) - Psychiatric Psychiatric exam: Present: normal affect, normal mood - Skin Skin exam: Present: warm, dry, intact, normal color Course Course Narrative: This is a 73-year-old male reportedly too weak to get up after he fell to the floor at home. No complaints here, but he has anisocoria. Vital Signs Temperature 99.7 F H 04/12/18 17:16 Pulse Rate 96 04/12/18 17:16 Respiratory Rate 22 04/12/18 17:16 Blood Pressure 139/77 04/12/18 17:16 O2 Sat by Pulse Oximetry 93 04/12/18 17:16 Temperature 99.7 F H 04/12/18 17:16 Pulse Rate 98 04/12/18 17:42 Respiratory Rate 17 04/12/18 17:42 Blood Pressure 135/73 04/12/18 17:42 O2 Sat by Pulse Oximetry 94 04/12/18 17:44 Oxygen Delivery Oxygen Delivery Room Air Medical Decision Making - MDM Narrative Medical decision making narrative: This is a 73-year-old male with weakness after a fall. He appears to have bilateral lower lobe pneumonia. Ceftriaxone and doxycycline were given to facilitate discharge back to his shelter I discussed this case with the on-call hospitalist, who accepted him for admission - Lab Data Lab results narrative: CBC showed anemia 10.8 4.1 BMP should be human elevated 29 and creatinine elevated at 1.75 Lactate was in the normal range at 1.4 Troponin was low Result diagrams: 04/12/18 17:24 04/12/18 17:24 Lab Results 04/12/18 04/12/18 04/12/18 Range/Units 17:24 17:24 17:39 WBC 9.1 (4.3-11.1) K/mcL RBC 3.63 L (4.19-5.50) M/mcL Hgb 10.8 L (12.9-16.9) g/dL Hct 34.5 L (37.5-50.1) % MCV 95.0 (83.0-100.0) fL MCH 29.8 (28.0-33.3) pg MCHC 31.3 L (31.6-35.5) g/dL RDW 14.1 (11.5-14.5) % Plt Count 208 (140-400) K/mcL MPV 9.6 (9.4-12.4) fL Immature Gran % 0.3 (0-4) % Seg Neutrophils % 63.8 % Lymphocytes % 20.2 % Monocytes % 13.3 % Eosinophils % 2.1 % Basophils % 0.3 % Neutrophils # 5.8 (1.6-8.9) K/mcL Lymphocytes # 1.8 (0.6-4.6) K/mcL Monocytes # 1.2 (0.0-1.3) K/mcL Eosinophils # 0.2 (0.0-0.6) K/mcL Basophils # 0.0 (0.0-0.2) K/mcL Sodium 135 L (136-145) mEq/L Potassium 3.9 (3.5-5.1) mEq/L Chloride 99 (98-107) mEq/L Carbon Dioxide 25 (23-29) mEq/L BUN 29 H (8-23) mg/dL Creatinine 1.75 H (0.70-1.30) mg/dL Est GFR ( Amer) 47 L (> 60) Est GFR (Non-Af Amer) 39 L (> 60) BUN/Creatinine Ratio 17 (6-26) Glucose 117 H (70-105) mg/dL Calculated Osmolality 287 (280-300) Lactic Acid 1.4 (0.5-2.2) mmol/L Calcium 9.3 (8.6-10.3) mg/dL Troponin I < 0.03 (< 0.04) ng/mL - Radiology Data Radiology results reviewed: Yes I reviewed the patient's radiology results. CT head showed no acute process Chest x-ray showed possible bilateral lower lobe infiltrates - EKG Data EKG #1 EKG attestation: Yes I reviewed and interpreted this EKG. EKG results narrative: ECG shows sinus rhythm at 97 bpm, normal intervals, normal axis, slight ST depressions in lead 1 and 2, no other ST or T-wave abnormalities Critical Care Time Critical Care Time: No
[2018-04-12 17:56] LABS: Basophils % 0.3 %; Eosinophils # 0.2 K/mcL (0.0-0.6); Eosinophils % 2.1 %; Hematocrit 34.5 % (37.5-50.1); Hemoglobin 10.8 g/dL (12.9-16.9); Immature Granulocytes % 0.3 % (0-4); Lymphocytes # 1.8 K/mcL (0.6-4.6); Lymphocytes % 20.2 %; Mean Corpuscular HGB Conc 31.3 g/dL (31.6-35.5); Mean Corpuscular Hemoglobin 29.8 pg (28.0-33.3); Mean Platelet Volume 9.6 fL (9.4-12.4); Monocytes # 1.2 K/mcL (0.0-1.3); Monocytes % 13.3 %; Neutrophils # 5.8 K/mcL (1.6-8.9); Platelet Count 208 K/mcL (140-400); Red Blood Count 3.63 M/mcL (4.19-5.50); Red Cell Distribution Width 14.1 % (11.5-14.5); Segmented Neutrophils % 63.8 %
[2018-04-12 18:16] LABS: Troponin I < 0.03 ng/mL (< 0.04)
[2018-04-12 18:42] LABS: BUN/Creatinine Ratio 17 (6-26); Blood Urea Nitrogen 29 mg/dL (8-23); Calcium 9.3 mg/dL (8.6-10.3); Carbon Dioxide 25 mEq/L (23-29); Chloride 99 mEq/L (98-107); Glucose 117 mg/dL (70-105); Osmolality,Calculated 287 (280-300); Potassium 3.9 mEq/L (3.5-5.1); Sodium 135 mEq/L (136-145); eGFR For Non-African Americans 39 (> 60)
[2018-04-12] MEDS ORDERED: cefTRIAXone 1,000 MG in Water for inj. (sterile) 20 ML 10 ML IVP ONE (19:17)
[2018-04-12] MEDS ORDERED: Doxycycline 100 MG CAPSULE PO ONE (19:17)
[2018-04-12] MEDS ORDERED: Naloxone 0.4 MG/ML INJ IVP PRN (21:14)
[2018-04-12] MEDS ORDERED: Vancomycin (wt based) 1,000 MG VIAL IVPB SCH (22:00)
--- NOTE | 2018-04-12 22:52 | Internal Med History&Physical ---
Date of Encounter: 04/13/18 Time of Encounter: 22:46 Internal Medicine - H&P: HPI Chief complaint: Generalized Weakness History of present illness: Mr. Walker is a 73 year old male with a past medical history of COPD, dementia, diabetes, hypertension presented to the ED with a chief complaint of generalized weakness. Patient currently lives at a nursing home and per reports he fell to the ground earlier today and was able unable to get up because of generalized weakness. Patient reportedly was receiving antibiotic treatment for an alleged urinary tract infection within the last 2 days. Per my assessment, the patient reports feeling weak for the past couple of weeks and does endorse a new cough that is nonproductive during the same time frame associated with some dyspnea. Patient denies any fever, chills, chest pain, nausea, vomiting or diarrhea. Initial assessment in the ED his vitals were relatively stable. He was satting initially around 94% on 2 L nasal cannula. She was not on home oxygen. Laboratory showed normal white blood cell count and mildly elevated creatinine from baseline. Chest x-ray was performed which showed subtle scattered bibasilar lung opacities which may represent infection. Patient admitted for possible community-acquired pneumonia. Past Med Surg Social Fam HX - Past Medical History Medical history: COPD, dementia, diabetes, GERD, hyperlipidemia, hypertension, osteoporosis, renal disease, other Additional medical history: sleep apnea, tremor, hypogonadism, gout, chronic pain, obesity, neuropathy, onychomycosis, MRSA Psychiatric history: anxiety, bipolar, depression, other - Past Surgical History Surgical History: knee replacement, other - Social History Smoking Status: Never smoker Smokeless Tobacco Status: No Alcohol use: none Drug use: none Internal Medicine - H&P: Meds Cholecalciferol (D-3) [Vitamin D] 2,000 unit PO DAILY #0 05/13/15 [History] Albuterol Sulfate [Proair Hfa] 2 puff IH TID PRN 08/11/16 [History] Aspirin [Lo-Dose Aspirin EC] 81 mg PO DAILY 08/11/16 [History] Furosemide [Lasix] 20 mg PO BID 08/11/16 [History] Metoprolol [Lopressor] 50 mg PO BID 08/11/16 [History] Potassium Chloride [K-Tab ER] 20 meq PO BID 08/11/16 [History] Sennosides/Docusate Sodium [Senna-S Tablet] 1 tab PO BID 08/11/16 [History] Simvastatin [Zocor] 40 mg PO HS 08/11/16 [History] risperiDONE [RisperDAL] 0.25 mg PO HS 08/11/16 [History] Acetaminophen [Tylenol] 975 mg PO TID PRN 11/02/17 [History] Ammonium Lactate [Lac-Hydrin Five] 1 appl TP BID 11/02/17 [History] Benztropine [Cogentin] 1 mg PO BID 11/02/17 [History] Divalproex (24 HR) [Depakote ER (24 HR)] 500 mg PO BID 11/02/17 [History] Ipratropium/Albuterol Neb [Duoneb] 3 ml IH QID PRN 11/02/17 [History] Omeprazole [PriLOSEC] 40 mg PO DAILY 11/02/17 [History] Polyethylene Glycol 3350 [MiraLAX] 17 gm PO DAILY 11/02/17 [History] Propylene Glycol/Peg 400 [Systane 0.3-0.4% Eye Drops] 1 drop BOTH EYES TID 11/02 [History] Allopurinol [Zyloprim 100 MG] 100 mg PO DAILY 04/12/18 [History] Tramadol HCl [Ultram] 50 mg PO QID PRN 04/12/18 [History] 3 Allergy/AdvReac Type Severity Reaction Status Date / Time Penicillins Allergy Mild Hives Verified 04/12/18 19:47 moxifloxacin Allergy Hives Verified 04/12/18 19:47 etodolac AdvReac Nausea Verified 04/12/18 19:47 All Systems PM: A 10-system review of systems was performed and is negative for pertinent findings except as documented above in the HPI. - Constitutional Constitutional: no chills, no fever(s), no night sweats - EENT Eyes: no change in vision, no discharge, no pain, no photophobia Ears: no ear discharge, no ear pain, no tinnitus Nose, mouth and throat: no dysphagia, no nasal discharge, no neck pain, no sore throat - Cardiovascular Cardiovascular ROS IM: no chest pain, no diaphoresis, no dyspnea, no lightheadedness, no palpitations, no syncope - Respiratory Respiratory: no cough, no dyspnea, no wheezing, no excessive phlegm production - Gastrointestinal Gastrointestinal: no abdominal pain, no diarrhea, no hematemesis, no hematochezia, no melena, no nausea, no vomiting - Musculoskeletal Musculoskeletal ROS IM: no numbness, no tingling - Integumentary Integumentary IM: no rash, no unusual bruising - Neurological Neurological ROS: no confusion, no convulsions, no focal weakness, no numbness, no tingling, no tremor(s) - Hematologic/Lymphatic Hematologic/Lymphatic: no easy bruising - Constitutional Vitals: Temp Pulse Resp BP Pulse Ox 99.7 F H 113 18 126/67 91 04/12/18 22:19 04/12/18 22:19 04/12/18 22:19 04/12/18 22:19 04/12/18 22:19 Exam: General: Alert and oriented 3 sitting up in bed in no acute distress Skin:Normal color, no rash, no lesions. HEENT:EOM, pupils equal, round and reactive. Cardiovascular:Normal S1 & S2, no rubs, murmurs or gallops. No JVD. Pulse regular. Lungs: Left lower lobe crackles appreciated, no wheezes. Abdomen:Soft, non-tender, no rigidity. Extremities:No deformity, left lower extremity larger in diameter when compared to right. Of note a 6 cm vertical scar noted over left knee. Calf nontender and nonerythematous to palpation Neurological:Normal cognition and motor skills. Pulses:Carotid and radial pulses normal +2. Rest of the physical exam is non contributory Internal Med - H&P Results - Labs CBC & Chem 7: 04/13/18 04:17 04/13/18 04:17 - Assessment and plan (1) Generalized weakness Current Visit: Yes Status: Acute (2) Pneumonia Current Visit: Yes Status: Acute Assessment and plan: Generalized weakness associated with nonproductive cough with chest x-ray findings concerning for possible community-acquired pneumonia. Given patient coming from a nursing home and recent use of antibiotics, will start patient on Vancomycin and Zosyn. Urine Legionella and and strep antigen was sent. Blood cultures pending. At this time patient appears stable from respiratory standpoint. May consider pulmonary consult. Qualifiers: Pneumonia type: due to unspecified organism Laterality: bilateral Lung location: lower lobe of lung Qualified Code(s): J18.1 - Lobar pneumonia, unspecified organism (3) Acute kidney injury Current Visit: No Status: Acute Assessment and plan: Mildly MIK with a creatinine of 1.75. Last creatinine in October of this year was 1.23. We will give supportive IV fluids. Hold Lasix and allopurinol for now. (4) Unilateral edema of lower extremity Current Visit: Yes Status: Acute Assessment and plan: Discrepancy between left and right calf was noted with left calf larger in diameter. Patient reports it has been that way for a while. He does have a scar over the left knee consistent with previous orthopedic intervention. Low suspicion for DVT S calf is soft, nonedematous and nonerythematous. We will monitor for now. (5) Anemia, unspecified Current Visit: Yes Status: Acute Assessment and plan: Anemia likely chronic. Patient hemoglobin appears to be at baseline when compared to previous measurements. Qualifiers: Qualified Code(s): D64.9 - Anemia, unspecified (6) COPD (chronic obstructive pulmonary disease) Current Visit: Yes Status: Acute Assessment and plan: Documented past medical history of COPD. No documentation of pulmonary function testing in our records. At this time there is no evidence of wheezing or acute exacerbation. We will monitor and continue with home inhalers. Qualifiers: COPD type: unspecified COPD Qualified Code(s): J44.9 - Chronic obstructive pulmonary disease, unspecified (7) Diabetes Current Visit: No Status: Chronic Qualifiers: Diabetes mellitus type: type 2 Diabetes mellitus custodial insulin use: without custodial use Diabetes mellitus complication status: with neurologic complications Diabetes mellitus complication detail: with polyneuropathy Qualified Code(s): E11.42 - Type 2 diabetes mellitus with diabetic polyneuropathy - Time Spent With Patient Total time spent is greater than 50% in coordination of care (as documented) at patient's floor/unit and/or counseling patient:
[2018-04-12] MEDS ORDERED: Ipratropium/Albuterol Neb 3 ML IH PRN (23:28)
[2018-04-12] MEDS ORDERED: Acetaminophen 325 MG TABLET PO PRN (23:28)
[2018-04-12] MEDS ORDERED: traMADol 50 MG TABLET PO PRN (23:28)
[2018-04-13] MEDS: 0.9 % Sodium Chloride 1,000 ML IVC SCH ×2 (01:16→10:40)
[2018-04-13] MEDS: Piperacillin/Tazobactam 3.375 GM in 0.9 % Sodium Chloride Mini Bag 100 ML IVPB SCH ×4 (02:30→23:51)
[2018-04-13 05:16] LABS: Basophils % 0.1 %; Hematocrit 34.2 % (37.5-50.1); Hemoglobin 10.7 g/dL (12.9-16.9); Lymphocytes # 0.7 K/mcL (0.6-4.6); Lymphocytes % 10.2 %; Mean Corpuscular HGB Conc 31.3 g/dL (31.6-35.5); Mean Corpuscular Hemoglobin 29.9 pg (28.0-33.3); Mean Corpuscular Volume 95.5 fL (83.0-100.0); Mean Platelet Volume 9.9 fL (9.4-12.4); Monocytes # 0.5 K/mcL (0.0-1.3); Monocytes % 7.3 %; Neutrophils # 5.7 K/mcL (1.6-8.9); Platelet Count 208 K/mcL (140-400); Red Blood Count 3.58 M/mcL (4.19-5.50); Segmented Neutrophils % 81.4 %
[2018-04-13 05:48] LABS: Albumin 3.4 g/dL (3.5-5.7); Albumin/Globulin Ratio 0.7 (1.1-2.2); Bilirubin,Total 0.7 mg/dL (0.3-1.0); Calcium 9.1 mg/dL (8.6-10.3); Globulin 4.9 g/dL (2.4-3.5); Potassium 4.6 mEq/L (3.5-5.1); Total Protein 8.3 g/dL (6.4-8.9)
[2018-04-13] MEDS ORDERED: *HR* Dextrose 50 % in Water (Syg) 50 ML SYRINGE IVP PRN (08:35)
[2018-04-13] MEDS ORDERED: D5% in Water 1,000 ML IVC PRN (08:35)
[2018-04-13] MEDS ORDERED: Dextrose Gel 15 GM/37.5 ML TUBE PO PRN ×2 (08:35)
[2018-04-13] MEDS: Aspirin Enteric Coated 81 MG Tablet PO SCH (10:06)
[2018-04-13] MEDS: Divalproex (24 HR) 500 MG TABLET PO SCH ×2 (10:06→21:54)
[2018-04-13] MEDS: Sennosides/Docusate Sodium TABLET PO SCH ×2 (10:06→21:54)
[2018-04-13] MEDS: Artificial Tears SOLN 15 ML BOTTLE BOTH EYES SCH ×3 (10:07→21:55)
[2018-04-13] MEDS: Cholecalciferol (D-3) 1,000 UNIT TABLET PO SCH (10:09)
[2018-04-13] MEDS: traMADol 50 MG TABLET PO PRN (10:16)
--- NOTE | 2018-04-13 11:02 | Internal Med Progress Note ---
Hospitalist Progress Note - Encounter Date of Encounter: 04/13/18 Time of Encounter: 11:01 - Subjective Interval History: Patient states his shortness of breath is better but he does feel significantly winded at the time of ambulation. - Exam Vitals: Temp Pulse Resp BP Pulse Ox 97.9 F 75 14 117/66 96 04/13/18 10:27 04/13/18 10:27 04/13/18 10:27 04/13/18 10:27 04/13/18 10:27 Exam: General: Alert and oriented 3 sitting up in bed in no acute distress Cardiovascular:Normal S1 & S2, no rubs, murmurs or gallops. No JVD. Pulse regular. Lungs: Bilateral scattered crackles, no wheezes. Pulses:Carotid and radial pulses normal +2. - Assessment and Plan (1) Diabetes Current Visit: No Status: Chronic Assessment and Plan: Continue sliding scale insulin. (2) Acute kidney injury Current Visit: No Status: Acute Assessment and Plan: Mildly MIK with a creatinine of 1.75. Last creatinine in October of this year was 1.23. We will give supportive IV fluids. Hold Lasix and allopurinol for now. 04/13-improved creatinine which is more close to his baseline. Repeat BMP in the morning Continue to hold Lasix for now and consider restarting it at the time of discharge. (3) Pneumonia Current Visit: Yes Status: Acute Assessment and Plan: Generalized weakness associated with nonproductive cough with chest x-ray findings concerning for possible community-acquired pneumonia. Given patient coming from a long term and recent use of antibiotics, will start patient on Vancomycin and Zosyn. Urine Legionella and and strep antigen was sent. Blood cultures pending. At this time patient appears stable from respiratory standpoint. May consider pulmonary consult. 04/13-he was hypoxic when he was admitted and we have been able to wean him down to room air. I will ask the nurse to check an oxygenation on attempted ambulation because of the patient's symptoms. Continue antibiotics for now. On further inquiry , he was on outpatient Bactrim for several days before he was admitted and which is what he should have responded to since it would treat both bronchitis and UTI -however he failed as an outpatient. For now I agree with continuing vancomycin and Zosyn and await cultures and sensitivities. We will de-escalate accordingly (4) Generalized weakness Current Visit: Yes Status: Acute Assessment and Plan: Consider physical therapy and occupational therapy consultation. (5) Anemia, unspecified Current Visit: Yes Status: Acute Assessment and Plan: Anemia likely chronic. Patient hemoglobin appears to be at baseline when compared to previous measurements. (6) COPD (chronic obstructive pulmonary disease) Current Visit: Yes Status: Acute Assessment and Plan: Documented past medical history of COPD. No documentation of pulmonary function testing in our records. At this time there is no evidence of wheezing or acute exacerbation. We will monitor and continue with home inhalers. 04/13-it seems the patient has had significant improvement with 1 dose of prednisone. I will continue a taper while in-house. (7) Unilateral edema of lower extremity Current Visit: Yes Status: Acute - Time Spent with Patient Total time spent is greater than 50% in coordination of care (as documented) at patient's floor/unit and/or counseling patient: Greater than 35 minutes Plan of Care Discussed with: patient Internal Medicine: Result - Labs CBC & Chem 7: 04/13/18 04:17 04/13/18 04:17 Labs: Short CBC 04/13/18 Range/Units 04:17 WBC 7.0 (4.3-11.1) K/mcL Hgb 10.7 L (12.9-16.9) g/dL Hct 34.2 L (37.5-50.1) % Plt Count 208 (140-400) K/mcL Neutrophils # 5.7 (1.6-8.9) K/mcL BMP 04/13/18 04:17 Sodium 135 L Potassium 4.6 Chloride 100 Carbon Dioxide 24 BUN 26 H Creatinine 1.48 H Glucose 161 H Calcium 9.1 Liver Function 04/13/18 Range/Units 04:17 Total Bilirubin 0.7 (0.3-1.0) mg/dL AST 13 (13-39) Units/L ALT 7 (7-52) Units/L Alkaline Phosphatase 63 (34-104) Units/L Albumin 3.4 L (3.5-5.7) g/dL Consult Discharge Plan - Plan [facility]errals: [facility] [Primary Care Provider] - (1) Diabetes Qualifiers: Diabetes mellitus type: type 2 Diabetes mellitus fci insulin use: without air defence officer use Diabetes mellitus complication status: with neurologic complications Diabetes mellitus complication detail: with polyneuropathy Qualified Code(s): E11.42 - Type 2 diabetes mellitus with diabetic polyneuropathy (3) Pneumonia Qualifiers: Pneumonia type: due to unspecified organism Laterality: bilateral Lung location: lower lobe of lung Qualified Code(s): J18.1 - Lobar pneumonia, unspecified organism (5) Anemia, unspecified Qualifiers: Qualified Code(s): D64.9 - Anemia, unspecified (6) COPD (chronic obstructive pulmonary disease) Qualifiers: COPD type: unspecified COPD Qualified Code(s): J44.9 - Chronic obstructive pulmonary disease, unspecified
[2018-04-13] MEDS: Insulin LISPRO 300 UNITS/3 ML VIAL SQ SCH ×2 (15:48→18:53)
[2018-04-13] MEDS: predniSONE 20 MG TABLET PO SCH (16:16)
[2018-04-13] MEDS ORDERED: risperiDONE 0.25 MG TABLET PO SCH (21:00)
[2018-04-13] MEDS ORDERED: Insulin LISPRO 300 UNITS/3 ML VIAL SQ SCH (21:00)
[2018-04-13] MEDS: *HR* Heparin 5,000 UNIT/ML VIAL SQ SCH (23:52)
[2018-04-14 03:18] LABS: Influenza A PCR Negative (Negative); Influenza B PCR Negative (Negative)
[2018-04-14 04:19] LABS: Bilirubin,Urine Negative (Negative); Blood,Urine Moderate (Negative); Clarity,Urine Clear (Clear); Color,Urine Yellow (Yellow); Glucose,Urine (UA) Normal (Normal); Ketones,Urine Negative (Negative); Leukocyte Esterase,Urine Moderate (Negative); Nitrite,Urine Negative (Negative); PH,Urine 6.5 pH Units (5.0-8.0); Protein,Urine 30 mg/dL (Neg-Trace); Urobilinogen,Urine Normal (Normal)
[2018-04-14 04:21] LABS: Bacteria,Urine None Seen per hpf (None-Few); Hyaline Casts,Urine None Seen per lpf (None-Few); RBC,Urine 15-30 per hpf (0-3); Squamous Epithelial Cell,Urine Many per lpf (None-Few); WBC,Urine 15-30 per hpf (0-3)
[2018-04-14] MEDS: *HR* Heparin 5,000 UNIT/ML VIAL SQ SCH ×2 (06:28→13:55)
[2018-04-14] MEDS: traMADol 50 MG TABLET PO PRN (08:03)
[2018-04-14] MEDS: Divalproex (24 HR) 500 MG TABLET PO SCH (08:03)
[2018-04-14] MEDS: predniSONE 20 MG TABLET PO SCH (08:03)
[2018-04-14] MEDS: Cholecalciferol (D-3) 1,000 UNIT TABLET PO SCH (08:03)
[2018-04-14] MEDS: Sennosides/Docusate Sodium TABLET PO SCH (08:04)
[2018-04-14] MEDS: Artificial Tears SOLN 15 ML BOTTLE BOTH EYES SCH (08:04)
[2018-04-14] MEDS: Piperacillin/Tazobactam 3.375 GM in 0.9 % Sodium Chloride Mini Bag 100 ML IVPB SCH (08:04)
[2018-04-14] MEDS: Aspirin Enteric Coated 81 MG Tablet PO SCH (08:04)
[2018-04-14] MEDS: Insulin LISPRO 300 UNITS/3 ML VIAL SQ SCH ×2 (08:05→13:38)
--- NOTE | 2018-04-14 09:05 | Internal Med Progress Note ---
Hospitalist Progress Note - Encounter Date of Encounter: 04/14/18 Time of Encounter: 09:01 - Subjective Interval History: Denise is a 73 y/o male with a pmh of dementia and COPD who presented to the ED for weakness after a mechanical fall (w/o LOC) and was found to have pneumonia. Patient states that about 4 days before he came in he fell after tripping over a rug. . Today patient states that he doesn't feel completely back to normal but he is feeling better than yesterday. He has had a non-productive cough. Denies SOB, CP , or abdominal pain. He has never noticed blood clots in his urine but has noticed it being darker intermittently. Denies dysuria. - Exam Vitals: Temp Pulse Resp BP Pulse Ox 98.3 F 59 16 115/73 96 04/14/18 07:45 04/14/18 07:45 04/14/18 07:45 04/14/18 07:45 04/14/18 08:00 Exam: Constitutional: Alert, in no acute distress Head: Normocephalic, atraumatic Heart: Normal, regular rate and rhythm, no murmurs Lungs: Clear to auscultation, no wheezes, rales, or rhonchi Abdomen: Soft, nondistended, nontender, bowel sounds present and normal, no guarding or rigidity. Extremities: No edema, No clubbing, radial pulse +2/4, capillary refill <2sec. Skin: Skin warm and dry, no lesions, no rashes, no jaundice Neurologic: Romberg negative, patella reflexes 2/4, sensation intact bilaterally, supervising broker strength 5/5. Cranial nerves II through XII grossly intact, strength 5/5 in all extremities Psych: Cooperative with exam, good eye contact, cognitive function intact, speech clear, thought process logical, and goal directed - Assessment and Plan (1) Pneumonia Current Visit: Yes Status: Acute Assessment and Plan: Previously on BActrim for 3 days for UTI. No hypoxia recorded in the ED patient but patient was on 2L NC and weaned quickly. Patient is currently satting well on RA. He has had a continued non-productive cough. Plan: - Antibiotics: Vanco and Zosyn, could probably be switched to Levoquin - blood cultures pending - no sputum cultures as no productive cough - O2 support as needed - diet: diabetic - dispo: Probably can be discharged either today or tomorrow depending upon MIK. (2) MIK (acute kidney injury) Current Visit: Yes Status: Acute Assessment and Plan: MIK likely 2/2 to prerenal. creatinine = (1.48) (3) COPD (chronic obstructive pulmonary disease) Current Visit: Yes Status: Acute (4) Generalized weakness Current Visit: Yes Status: Acute Assessment and Plan: Strength 5/5 in all extremities. Generalized weakness most likely form pneumonia. But patient has fallen recently. PT/OT recommended outpatient PT/OT. Plan: - outpatient PT/OT upon discharge - fall precautions (5) Urinary tract infection Current Visit: No Status: Ruled-out Assessment and Plan: Current UA does not show infection. Will continue current antibiotics. (6) Hematuria Current Visit: Yes Status: Acute Assessment and Plan: hematuria in previous UAs for 2 years, should do further testing outpatient. (7) Diabetes Current Visit: No Status: Chronic Assessment and Plan: low dose SSI (8) Anemia Current Visit: No Status: Chronic Assessment and Plan: Stable. chronic normocytic anemia. DVT Prophylaxis: Heparin SQ - Time Spent with Patient Total time spent is greater than 50% in coordination of care (as documented) at patient's floor/unit and/or counseling patient: Internal Medicine: Result - Labs CBC & Chem 7: 04/13/18 04:17 04/13/18 04:17 Labs: Urine 04/14/18 Range/Units 04:08 Urine Color Yellow (Yellow) Urine Clarity Clear (Clear) Urine pH 6.5 (5.0-8.0) pH Units Ur Specific [place] 1.020 (1.010-1.025) Urine Protein 30 H (Neg-Trace) mg/dL Urine Glucose (UA) Normal (Normal) mg/dL Consult Discharge Plan - Plan Referrals: [facility] [Primary Care Provider] - (1) Pneumonia Qualifiers: Pneumonia type: due to unspecified organism Laterality: bilateral Lung location: lower lobe of lung Qualified Code(s): J18.1 - Lobar pneumonia, unspecified organism (3) COPD (chronic obstructive pulmonary disease) Qualifiers: COPD type: unspecified COPD Qualified Code(s): J44.9 - Chronic obstructive pulmonary disease, unspecified (5) Urinary tract infection Qualifiers: Urinary tract infection type: site unspecified Hematuria presence: without hematuria Qualified Code(s): N39.0 - Urinary tract infection, site not specified (7) Diabetes Qualifiers: Diabetes mellitus type: type 2 Diabetes mellitus 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
[2018-04-14 10:04] LABS: Hematocrit 33.8 % (37.5-50.1); Hemoglobin 10.2 g/dL (12.9-16.9); Mean Corpuscular HGB Conc 30.2 g/dL (31.6-35.5); Mean Corpuscular Hemoglobin 29.7 pg (28.0-33.3); Mean Corpuscular Volume 98.5 fL (83.0-100.0); Platelet Count 217 K/mcL (140-400); Red Blood Count 3.43 M/mcL (4.19-5.50); Red Cell Distribution Width 14.2 % (11.5-14.5)
--- NOTE | 2018-04-14 10:09 | Discharge Summary ---
<Ashley Gandhi - Last Filed: 04/14/18 12:57> - NOTES TO OUTPATIENT PROVIDER Notes to Outpatient Provider: Please f/u on hematuria as patient has had this consistently for 2 years, no blood clots observed. Orders not resulted at time of discharge: Pending orders 04/14/18 09:47 Basic Metabolic Panel Routine CBC no Diff [Complete Blood Count w/o Diff] [HEME] Routine Date of Encounter: 04/14/18 Time of Encounter: 09:09 - Discharge Diagnosis (1) Pneumonia Priority: Primary Status: Acute Qualifiers: Pneumonia type: due to unspecified organism Laterality: bilateral Lung location: lower lobe of lung Qualified Code(s): J18.1 - Lobar pneumonia, unspecified organism (2) MIK (acute kidney injury) Priority: Secondary Status: Acute (3) COPD (chronic obstructive pulmonary disease) Priority: Secondary Status: Acute Qualifiers: COPD type: unspecified COPD Qualified Code(s): J44.9 - Chronic obstructive pulmonary disease, unspecified (4) Generalized weakness Priority: Secondary Status: Acute (5) Urinary tract infection Priority: Secondary Status: Ruled-out Qualifiers: Urinary tract infection type: site unspecified Hematuria presence: without hematuria Qualified Code(s): N39.0 - Urinary tract infection, site not specified (6) Hematuria Priority: Secondary Status: Acute Qualifiers: Hematuria type: asymptomatic microscopic Qualified Code(s): R31.21 - Asymptomatic microscopic hematuria (7) Diabetes Priority: Secondary Status: Chronic Qualifiers: Diabetes mellitus type: type 2 Diabetes mellitus 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 Walker is a 73 year old male with a past medical history of COPD, dementia, diabetes, hypertension presented to the ED with a chief complaint of generalized weakness. Patient currently lives at a [facility] and per reports he fell to the ground earlier today and was able unable to get up because of generalized weakness. Patient reportedly was receiving antibiotic treatment for an alleged urinary tract infection within the last 2 days. Per my assessment, the patient reports feeling weak for the past couple of weeks and does endorse a new cough that is nonproductive during the same time frame associated with some dyspnea. Patient denies any fever, chills, chest pain, nausea, vomiting or diarrhea. Initial assessment in the ED his vitals were relatively stable. He was satting initially around 94% on 2 L nasal cannula. She was not on home oxygen. Laboratory showed normal white blood cell count and mildly elevated creatinine from baseline. Chest x-ray was performed which showed subtle scattered bibasilar lung opacities which may represent infection. Patient admitted for possible community-acquired pneumonia. HOSPITAL COURSE: Patient was started on Vancomycin and zosyn. He remained afebrile throughout hospital stay without signs of sepsis. Patient was started on maintenance IV fluids for MIK with a maximum creatinine of 1.75 which improved throughout hospital stay to 1.22. Blood cultures came back negative for growth along with urine Legionella and Streptococcus pneumoniae. Patient was quickly weaned off of oxygen to RA. Patient's vitals remained stable throughout hospital stay and patient was ready for discharge. He was discharged home with 3 days of Omnicef and azithromycin for continued treatment for pneumonia. Ambulatory 6 minute walking test performed before discharged and passed without desaturation. Outpatient physical therapy and occupational therapy recommended per OT and PT. Of note, all records of UAs at [place] the last 2 years patient has had blood and urine will most likely need further workup outpatient to see if resolution after UTI and if not referral to Urology. Discharge discussed with: patient - Time Spent with Patient Total time spent providing and/or coordinating discharge services: - Discharge Medications Prescriptions: Azithromycin [Zithromax Tri-Tyrel] 500 mg PO DAILY #3 tablet Cefdinir [Omnicef] 300 mg PO BID #6 capsule Home Medications: Cholecalciferol (D-3) [Vitamin D] 2,000 unit PO DAILY #0 05/13/15 [History] Albuterol Sulfate [Proair Hfa] 2 puff IH TID PRN 08/11/16 [History] Aspirin [Lo-Dose Aspirin EC] 81 mg PO DAILY 08/11/16 [History] Furosemide [Lasix] 20 mg PO BID 08/11/16 [History] Metoprolol [Lopressor] 50 mg PO BID 08/11/16 [History] Potassium Chloride [K-Tab ER] 20 meq PO BID 08/11/16 [History] Sennosides/Docusate Sodium [Senna-S Tablet] 1 tab PO BID 08/11/16 [History] Simvastatin [Zocor] 40 mg PO HS 08/11/16 [History] risperiDONE [RisperDAL] 0.25 mg PO HS 08/11/16 [History] Acetaminophen [Tylenol] 975 mg PO TID PRN 11/02/17 [History] Ammonium Lactate [Lac-Hydrin Five] 1 appl TP BID 11/02/17 [History] Benztropine [Cogentin] 1 mg PO BID 11/02/17 [History] Divalproex (24 HR) [Depakote ER (24 HR)] 500 mg PO BID 11/02/17 [History] Ipratropium/Albuterol Neb [Duoneb] 3 ml IH QID PRN 11/02/17 [History] Omeprazole [PriLOSEC] 40 mg PO DAILY 11/02/17 [History] Polyethylene Glycol 3350 [MiraLAX] 17 gm PO DAILY 11/02/17 [History] Propylene Glycol/Peg 400 [Systane 0.3-0.4% Eye Drops] 1 drop BOTH EYES TID 11/02 [History] Allopurinol [Zyloprim 100 MG] 100 mg PO DAILY 04/12/18 [History] Tramadol HCl [Ultram] 50 mg PO QID PRN 04/12/18 [History] Azithromycin [Zithromax Tri-Tyrel] 500 mg PO DAILY #3 tablet 04/14/18 [Rx] Cefdinir [Omnicef] 300 mg PO BID #6 capsule 04/14/18 [Rx] Allergies/Adverse Reactions: 3 Allergy/AdvReac Type Severity Reaction Status Date / Time Penicillins Allergy Mild Hives Verified 04/12/18 19:47 moxifloxacin Allergy Hives Verified 04/12/18 19:47 etodolac AdvReac Nausea Verified 04/12/18 19:47 Date of admission: 04/12/18 22:13 [facility] physician: [facility] Consults: 04/13/18 10:42 Consult to Physical Therapy [CONS] Routine Comment: Evaluate, develop and implement POC Reason for Consult: pt from [facility], gen weakness Does patient have active BEDREST order?: No Is patient medically & hemodynamically stable?: Yes Patient assessed for mobility or mobilized this visit?: No Discharging clinician: Adela Nicholas Anticipated date of discharge: 04/14/18 - Constitutional Vitals: Temp Pulse Resp BP Pulse Ox 99.0 F 76 14 117/67 94 04/14/18 09:51 04/14/18 09:51 04/14/18 09:51 04/14/18 09:51 04/14/18 09:51 Exam: Constitutional: Alert, in no acute distress Head: Normocephalic, atraumatic Heart: Normal, regular rate and rhythm, no murmurs Lungs: Clear to auscultation, no wheezes, rales, or rhonchi Abdomen: Soft, nondistended, nontender, bowel sounds present and normal, no guarding or rigidity. Extremities: No edema, No clubbing, radial pulse +2/4, capillary refill <2sec. Skin: Skin warm and dry, no lesions, no rashes, no jaundice Neurologic: Romberg negative, patella reflexes 2/4, sensation intact bilaterally, leather drier strength 5/5. Cranial nerves II through XII grossly intact, strength 5/5 in all extremities Psych: Cooperative with exam, good eye contact, cognitive function intact, speech clear, thought process logical, and goal directed - Patient Status Disposition: Transfer Other Condition: Fair Functional capacity at discharge: uses cane/walker Overall status at discharge: patient is progressing back to baseline - Discharge Instructions Instructions: Chronic Obstructive Pulmonary Disease (DC), Bacterial Pneumonia ( DC), Pneumonia (DC) Follow Up With: [facility] [Primary Care Provider[facility] - 04/20/18 9:15 am Additional Instructions: Please take antibiotics for the full course recommended. Please follow up with her primary care physician in 2-5 days. Please continue to hydrate well. 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: without senior living use Diabetes mellitus complication status: with neurologic complications Diabetes mellitus complication detail: with polyneuropathy Qualified Code(s): E11.42 - Type 2 diabetes mellitus with diabetic polyneuropathy (2) Acute kidney injury Status: Acute (3) Pneumonia Status: Acute Qualifiers: Pneumonia type: due to unspecified organism Laterality: bilateral Lung location: lower lobe of lung Qualified Code(s): J18.1 - Lobar pneumonia, unspecified organism (4) Generalized weakness Status: Acute (5) Anemia, unspecified Status: Acute (6) COPD (chronic obstructive pulmonary disease) Status: Acute Qualifiers: COPD type: unspecified COPD Qualified Code(s): J44.9 - Chronic obstructive pulmonary disease, unspecified (7) Unilateral edema of lower extremity Status: Acute Hospital course: Mr. Walker is a 73 year old male - Time Spent with Patient Total time spent providing and/or coordinating discharge services: Date of admission: 04/12/18 22:13 [facility] care physician: [facility] Consults: 04/13/18 10:42 Consult to Physical Therapy [CONS] Routine Comment: Evaluate, develop and implement POC Reason for Consult: pt from [facility], gen weakness Does patient have active BEDREST order?: No Is patient medically & hemodynamically stable?: Yes Patient assessed for mobility or mobilized this visit?: No - Constitutional Vitals: Temp Pulse Resp BP Pulse Ox 98.8 F 76 16 151/75 98 04/14/18 14:00 04/14/18 14:00 04/14/18 14:00 04/14/18 14:00 04/14/18 14:00 - Attending Attestation I examined this patient and my medical decision-making was reviewed with the Resident Physician Dr. Gandhi. I agree with the documented findings, disposition and treatment plan as described except to the extent set forth below. Mr. Walker is a 73 year old male with a past medical history of COPD, dementia, diabetes, hypertension presented to the ED with a chief complaint of generalized weakness. He happened to have b/l pneumonia. Pt was admitted in the hospital and started him on empirical abx . His symptoms started improving slowly. He is breathing comfortably on RA. He feels like he is back to baseline and wants to go home. Will d/c him home in stable condition today.
[2018-04-14 10:24] LABS: BUN/Creatinine Ratio 19 (6-26); Blood Urea Nitrogen 23 mg/dL (8-23); Calcium 8.9 mg/dL (8.6-10.3); Carbon Dioxide 24 mEq/L (23-29); Chloride 108 mEq/L (98-107); Glucose 120 mg/dL (70-105); Osmolality,Calculated 291 (280-300); Potassium 4.6 mEq/L (3.5-5.1); Sodium 138 mEq/L (136-145); eGFR For Non-African Americans 59 (> 60)
--- NOTE | 2018-04-14 10:26 | Physician Discharge Referral ---
Home Health/Hosp Referral Info Attending Provider: Cristopher Provider in Charge Post Discharge: PCP - Diagnosis (1) Pneumonia Priority: Primary Status: Acute (2) MIK (acute kidney injury) Priority: Secondary Status: Acute (3) COPD (chronic obstructive pulmonary disease) Priority: Secondary Status: Acute (4) Generalized weakness Priority: Secondary Status: Acute (5) Urinary tract infection Priority: Secondary Status: Ruled-out (6) Hematuria Priority: Secondary Status: Acute (7) Diabetes Priority: Secondary Status: Chronic (8) Anemia Priority: Secondary Status: Chronic - Respiratory Orders Smoking Cessation: Smoking cessation has been advised. For more information, call the [place] Tobacco Quit Line at 8-518-OHGK-NOW. - Diet/Nutrition Diet/Nutrition Orders: Renal, No Concentrated Sweets - Activity Activity Orders: Walker - Services Needed Following services are medically necessary services: Physical Therapy, Occupational Therapy - Transfer Medications Prescriptions: Azithromycin [Zithromax Tri-Tyrel] 500 mg PO DAILY #3 tablet Cefdinir [Omnicef] 300 mg PO BID #6 capsule Home Medications: Cholecalciferol (D-3) [Vitamin D] 2,000 unit PO DAILY #0 05/13/15 [History] Albuterol Sulfate [Proair Hfa] 2 puff IH TID PRN 08/11/16 [History] Aspirin [Lo-Dose Aspirin EC] 81 mg PO DAILY 08/11/16 [History] Furosemide [Lasix] 20 mg PO BID 08/11/16 [History] Metoprolol [Lopressor] 50 mg PO BID 08/11/16 [History] Potassium Chloride [K-Tab ER] 20 meq PO BID 08/11/16 [History] Sennosides/Docusate Sodium [Senna-S Tablet] 1 tab PO BID 08/11/16 [History] Simvastatin [Zocor] 40 mg PO HS 08/11/16 [History] risperiDONE [RisperDAL] 0.25 mg PO HS 08/11/16 [History] Acetaminophen [Tylenol] 975 mg PO TID PRN 11/02/17 [History] Ammonium Lactate [Lac-Hydrin Five] 1 appl TP BID 11/02/17 [History] Benztropine [Cogentin] 1 mg PO BID 11/02/17 [History] Divalproex (24 HR) [Depakote ER (24 HR)] 500 mg PO BID 11/02/17 [History] Ipratropium/Albuterol Neb [Duoneb] 3 ml IH QID PRN 11/02/17 [History] Omeprazole [PriLOSEC] 40 mg PO DAILY 11/02/17 [History] Polyethylene Glycol 3350 [MiraLAX] 17 gm PO DAILY 11/02/17 [History] Propylene Glycol/Peg 400 [Systane 0.3-0.4% Eye Drops] 1 drop BOTH EYES TID 11/02 [History] Allopurinol [Zyloprim 100 MG] 100 mg PO DAILY 04/12/18 [History] Tramadol HCl [Ultram] 50 mg PO QID PRN 04/12/18 [History] Azithromycin [Zithromax Tri-Tyrel] 500 mg PO DAILY #3 tablet 04/14/18 [Rx] Cefdinir [Omnicef] 300 mg PO BID #6 capsule 04/14/18 [Rx] Allergies/Adverse Reactions: 3 Allergy/AdvReac Type Severity Reaction Status Date / Time Penicillins Allergy Mild Hives Verified 04/12/18 19:47 moxifloxacin Allergy Hives Verified 04/12/18 19:47 etodolac AdvReac Nausea Verified 04/12/18 19:47 Certification: Further, I certify that my clinical findings support that this patient is homebound (i.e. absences from home require considerable and taxing effort and are for medical reasons or restorationism services or infrequently or short duration when for other reasons) because: Homebound Reason: Leaving home requires considerable and taxing effort due to condition Attestation: My signature below is to certify that this patient is under my care and that I, or nurse practitioner, or a physician's virtual assistant working with me, has a face-to -face encounter with this patient.
[2018-04-14 14:21] VITALS: BP 151/75
[2018-04-14] MEDS ORDERED: Aminoglycoside Consult 1 EACH MC ONE (16:46)
--- NOTE | 2018-04-16 12:33 | Electrocardiograph Report ---
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
== END 2018-04-14 16:47 | disposition home or self-care (01) | DRG 194 ==
LOC: 3ANU 17:13 → EMEROOARM 17:13 → 3ANU 21:53 → SUATTDRO 22:13
PROVIDERS: ADMIT Pediatrics; ATTEND Internal Medicine